=== PATIENT | male | born 1960 | race Caucasian/White ===

== ENCOUNTER 2019-05-17 16:00 | Outpatient (RCR) | payer OTHER, SELFPAY ==
[2019-04-26 15:25] VITALS: BP_SYST 155
--- NOTE | 2019-04-26 16:20 | PTOPEVAL ---
PHYSICAL THERAPY EVALUATION AND PLAN OF CARE 04-26-2019 The PT evaluation was completed for the diagnosis of R shoulder tendonitis. The plan of care is scheduled for 2x/week for 3 weeks. Thank you for referring this patient to [facility]. Please review, sign, date and return this plan of care PHIL. I agree with and certify that the following plan of care is medically necessary. Referring Physician Date Attending Provider: Charles Bear MD *PT Outpatient Evaluation Start: 04/26/19 15:29 Document 04/26/19 15:25 SEBASTIAN (Rec: 04/26/19 16:19 SEBASTIAN [id number]) Outpatient Past Medical History Neurological History Hx Neurological Disorders No Significant History Cardiovascular History Hx Hypertension Yes: med control Respiratory History Hx Respiratory Disorders No Significant History Gastrointestinal History Hx Gastrointestinal Disorders No Significant History Genitourinary History Hx Genitourinary Disorders No Significant History Musculoskeletal History Hx Back Pain Yes: spinal stenosis of lumbar spine Hx Degenerative Disk Disease Yes: neck& L sh pain-pain dr- injections, eased now Hx Orthopedic Surgery Yes: R knee arthroscopy/L knee pain Hx Other Musculoskeletal Disorders Yes: overall aches/pains;neck pain with L arm pain Hematological History Hx Hematological Disorders No Significant History Endocrine History Hx Diabetes Yes: med control Hx Thyroidectomy Yes: no meds HEENT History Hx HEENT Disorders No Significant History Evaluation Information Problem Diagnosis R shoulder tendonitis Onset Feb 23, 2019 Subjective Information slipped and fell on ice, Query Text:As Reported By Patient/ forward and landed, rolling Family onto R scapula; is doing much better now; have been moving arm and doing some exercises in the shower; Diagnostic Tests X-Rays For This Problem Yes: no fracture Other Tests For This Problem Yes: CT scan-per pt some bone spurs ; Previous Treatments Previous Treatments For This Problem no PT for shoulder Prior Level of Function Activity Level (Last 3 Months) 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
--- NOTE | 2019-05-17 16:43 | PTOPEVAL ---
PHYSICAL THERAPY DISCHARGE 05-17-2019 Mr. Mustafa has received 5 Physical Therapy sessions, from April 26 to today, for the diagnosis of R shoulder tendonitis. Compared to the initial evaluation: pain rating is about the same; R shoulder strength and AROM have increased; reported sleeping tolerance has improved; activity tolerance has increased with work tasks and playing pool. He has not tried golfing yet. His treatment included stretching and strengthening of R shoulder, modalities for pain control--manual therapy, ice, kinesiotape and education for home exercises and posture. The goals were partially achieved. Basim is to continue with his home exercises and gradual increase in strengthening, monitoring his pain. Thank you for referring Mr. Mustafa to [facility]. Please review, sign, date and return this plan of care PHIL. I agree with and certify that the following plan of care is medically necessary. Referring Physician Date Attending Provider: Charles Bear MD Document 05/17/19 16:01 SEBASTIAN (Rec: 05/17/19 16:29 SEBASTIAN [id number]) Subjective Information Basim reports: most pain in Query Text:As Reported By Patient/ the evening and with sleeping; Family is doing more and using arm more; is doing his home exercises and agrees to discharge from PT at this time . Pain Assessment Timing of Pain Assessment Timing of Pain Assessment Assessment Pain Scale Pain Scale Used Numeric (1 - 10) Self Report Pain Assessment Right Shoulder(s) Reported Pain Level 0 Pain Description Aching Pain Radiation Neck Pain Frequency Acute Other Pain Description stiff and ache in posterior shoulder and neck Current Pain Intensity 0 Lowest Pain Intensity 0 Greatest Pain Intensity 4 Pain Level Goal 0 Pain Aggravating Factors Exercise/Activity Other Pain Aggravating Factors reports awaken 3-4 x/night w/ rolling onto shoulder;reaching back&overhead Pain Relief Interventions Used By Heat,Ice Patient Other Alleviating Interventions taking ibuprofen 200mg in morning and end of day for shoulder pain; Additional Pain Comments have not played golf; played pool 3x- slight problem with shoulder elevation Pain Score Pain Score 0: Self Report Upper Extremity Range of Motion General Upper Extremity Range of Motion Gross Upper Extremity Range of Motion standing R shoulder AROM WNL, Comments flex, abduct and IR, with increased pain over deltoid with abduction and with IR- anterior
== END 2019-05-20 09:27 | disposition home or self-care (01) ==
LOC: ANHPT 16:00
PROVIDERS: PCP Internal Medicine; Visit Provider Orthopaedic Surgery
DX: M75.81 Other shoulder lesions, right shoulder (principal)
CPT/HCPCS: 97110; 97140; 97161

== ENCOUNTER 2019-09-07 07:01 | Outpatient (CLI) | payer OTHER, SELFPAY ==
[2019-09-07 07:49] LABS: Alanine Aminotransferase 24 U/L (4-50); Albumin Level 4.6 g/dL (3.5-5.1); Alkaline Phosphatase 83 U/L (38-126); Aspartate Amino Transferase 25 U/L (17-59); Bilirubin,Total 0.3 mg/dL (0.2-1.3); Blood Urea Nitrogen 20 mg/dL (9-20); Calcium 9.2 mg/dL (8.4-10.2); Carbon Dioxide 33 mmol/L (22-30); Chloride 95 mmol/L (98-107); Cholesterol 146 mg/dL (0-200); Estimated Glomerular Filt Rate > 60; Glucose 187 mg/dL (75-110); HDL Direct 49 mg/dL; Potassium 4.2 mmol/L (3.4-5.0); Sodium 137 mmol/L (137-145); Triglycerides 104 mg/dL (<150)
[2019-09-07 07:56] LABS: Basophils Absolute Auto 0.1 K/mm3 (0.0-0.1); Basophils Percent Auto 1.4 % (0.2-1.2); Eosinophils Absolute Auto 0.2 K/mm3 (0-0.3); Eosinophils Percent Auto 3.2 % (0-4.4); Hematocrit 43.8 % (42.0-52.0); Hemoglobin 14.9 g/dL (14.0-18.0); Immature Granulocyte Absolute 0.04 K/mm3 (0.00-0.031); Immature Granulocyte Percent A 0.7 % (0-0.5); Lymphocytes Absolute Auto 1.46 K/mm3 (0.9-3.2); Lymphocytes Percent Auto 26.4 % (18.3-44.2); Mean Corpuscular Hemoglobin 31.2 pg (26-34); Mean Corpuscular Volume 91.6 fl (80-100); Mean Platelet Volume 10.7 fl (7.4-10.4); Monocytes Absolute Auto 0.8 K/mm3 (0.1-0.6); Neutrophils Percent Auto 53.3 % (45.5-73.1); Platelet Count Result 253 k/mm3 (150-375); Red Blood Count 4.78 M/mm3 (4.6-6.20); White Blood Count 5.5 K/mm3 (4.5-10.0)
[2019-09-07 08:02] LABS: LDL Cholesterol Direct 83 mg/dL
[2019-09-07 08:54] LABS: Folic Acid 9.7 ng/mL (2.76->20)
== END 2019-09-07 07:02 | disposition home or self-care (01) ==
PROVIDERS: PCP Internal Medicine; Visit Provider Internal Medicine
DX: R53.83 Other fatigue (principal); E78.00 Pure hypercholesterolemia, unspecified; E11.65 Type 2 diabetes mellitus with hyperglycemia
CPT/HCPCS: 36415; 80053; 80061; 82607; 82746; 84443; 85025

== ENCOUNTER 2020-01-19 11:26 | Inpatient (IN) | payer OTHER, SELFPAY ==
[2020-01-19] VITALS (13 sets, daily range): BP systolic 146–198; BP diastolic 85–110; PULSE 54–96; RESP 16–22; TEMP 36.1–36.8; O2SAT 95–99; BMI 29.9
--- NOTE | ~2020-01-19 | XR_ITS ---
EXAMINATION: XR chest 2V DATE: 01/19/2020 11:51 INDICATION: Right chest pain. TECHNIQUE: Frontal and lateral views of the chest were obtained. COMPARISON: Chest 2 views 02/15/2013 FINDINGS: The chest demonstrates clear lungs without pneumonia, pleural effusion, or pneumothorax. Th e heart size is normal. IMPRESSION: 1. No acute cardiopulmonary disease. Reviewed, dictated and finalized at location A. ER ELECTRICIAN
--- NOTE | 2020-01-19 11:28 | ECG_ITS ---
Measurements Intervals [place] Rate: 93 P: 25 WV: 179 QRS: -24 QRSD: 109 T: 42 QT: 345 QTc: 430 Interpretive Statements SINUS RHYTHM POSSIBLE LEFT ATRIAL ENLARGEMENT LEFT VENTRICULAR HYPERTROPHY AND ST-T CHANGE POOR R WAVE PROGRESSION, ANTERIOR LEADS CANNOT RULE OUT SEPTAL INFARCT, AGE INDETERMINATE ST-T WAVE ABNORMALITY IN HIGH LATERAL LEADS- CONSIDER ISCHEMIA BASELINE WANDER- III, V1 ABNORMAL ECG Electronically Signed On 01-19-2020 17:59:39 SENIOR ENGINEERING TECHNICIAN by Radhames Perez D.O.
[2020-01-19 11:56] LABS: Basophils Absolute Auto 0.1 K/mm3 (0.0-0.1); Basophils Percent Auto 0.8 % (0.2-1.2); Eosinophils Absolute Auto 0.1 K/mm3 (0-0.3); Eosinophils Percent Auto 1.7 % (0-4.4); Hematocrit 43.1 % (42.0-52.0); Immature Granulocyte Absolute 0.02 K/mm3 (0.00-0.031); Immature Granulocyte Percent A 0.3 % (0-0.5); Lymphocytes Absolute Auto 1.55 K/mm3 (0.9-3.2); Lymphocytes Percent Auto 23.6 % (18.3-44.2); Mean Corpuscular HGB Conc 34.8 g/dl (32-36); Mean Corpuscular Hemoglobin 31.1 pg (26-34); Mean Corpuscular Volume 89.2 fl (80-100); Mean Platelet Volume 11.2 fl (7.4-10.4); Monocytes Absolute Auto 0.7 K/mm3 (0.1-0.6); Monocytes Percent Auto 9.9 % (2.6-8.5); Neutrophils Absolute Auto 4.2 K/mm3 (1.3-6.7); Neutrophils Percent Auto 63.7 % (45.5-73.1); Platelet Count Result 274 k/mm3 (150-375); Red Blood Count 4.83 M/mm3 (4.6-6.20); Red Cell Distribution Width 13.5 % (11.5-14.5); White Blood Count 6.6 K/mm3 (4.5-10.0)
[2020-01-19 12:06] LABS: INR 0.9; Prothrombin Time 12.3 Seconds (11.1-14.7)
[2020-01-19 12:07] LABS: Partial Thromboplastin Time 26.8 SECONDS (22.3-36.8)
[2020-01-19 12:08] LABS: Anion Gap 11 mmol/L (8-16); Blood Urea Nitrogen 23 mg/dL (9-20); Calcium 9.7 mg/dL (8.4-10.2); Carbon Dioxide 31 mmol/L (22-30); Chloride 95 mmol/L (98-107); Estimated CRCL calculation 66 ml/min; Estimated Glomerular Filt Rate > 60; Glucose 396 mg/dL (75-110); Potassium 3.9 mmol/L (3.4-5.0); Sodium 137 mmol/L (137-145)
[2020-01-19 12:28] LABS: Troponin I 0.101 ng/mL (0.000-0.034)
[2020-01-19] MEDS: ASPIRIN 81 MG CHEWABLE TABLET 324 MG PO (12:33)
[2020-01-19] MEDS: NITROGLYCERIN SL 0.4 MG TABLET SUBLINGUAL ×2 (12:33→18:36)
--- NOTE | 2020-01-19 12:34 | ED.CHESTPAIN ---
HPI - Chest Pain General Chief Complaint: Chest Pain Stated Complaint: CHEST PAIN Time Seen by Provider: 01/19/20 12:04 Source: patient Mode of arrival: ambulatory Limitations: no limitations History of Present Illness HPI narrative: Patient 59-year-old male complaining of chest pain midsternal, 7 out of 10, radiating to back, started this morning. Patient denies any shortness of breath, nausea or diaphoresis. Patient denies any abdominal pain. Patient denies fever or chills. Related Data Allergies Allergy/AdvReac Type Severity Reaction Status Date / Time No Known Allergies Allergy Verified 01/19/20 11:34 Review of Systems Review of Systems: All systems reviewed & are unremarkable except as noted in HPI and below Constitutional: Constitutional: Denies body ache(s), Denies chills, Denies excessive sweating, Denies fatigue, Denies fever(s), Denies headache(s), Denies lethargy, Denies malaise, Denies weakness and Denies weight loss Eyes: Eyes: Denies blurry vision, Denies change in vision and Denies loss of vision ENT: Denies dizziness, Denies ear discharge, Denies headache(s), Denies lip swelling, Denies epistaxis, Denies nasal congestion, Denies neck pain, Denies throat swelling and Denies tongue swelling Cardiovascular: Cardiovascular: Denies chest pain with activity, Denies diaphoresis, Denies rapid heart rate, Denies edema, Denies irregular heart rhythm, Denies lightheadedness, Denies palpitations, Denies dyspnea and Denies dyspnea on exertion Respiratory: Respiratory: Denies chest congestion, Denies cough, Denies hemoptysis, Denies dyspnea and Denies dyspnea on exertion Gastrointestinal: Gastrointestinal: Denies abdominal pain, Denies melena, Denies hematochezia, Denies diarrhea, Denies nausea, Denies vomiting and Denies hematemesis Musculoskeletal: Musculoskeletal: Denies abnormal gait, Denies deformity, Denies joint swelling, Denies limited range of motion, Denies neck pain and Denies numbness Neurologic: Denies Abnormal speech present, Denies abnormal gait, Denies confusion, Denies dizziness, Denies headache(s), Denies focal weakness, Denies loss of vision, Denies numbness, Denies Other visual disturbances, Denies Sensory deficit (Neuro) and Denies weakness Psychiatric: Psychiatric: Denies confusion, Denies depression, Denies auditory hallucinations, Denies homicidal ideation and Denies suicidal ideation Endocrine: Endocrine: Denies cold intolerance, Denies excessive sweating, Denies fatigue, Denies heat intolerance and Denies palpitations Hematologic/Lymphatic: Hematologic/Lymphatic: Denies easy bleeding and Denies easy bruising Allergic/Immunologic: Allergic/Immunologic: Denies lip swelling, Denies throat swelling and Denies tongue swelling PMFSH Past Medical History Medical History (Updated 01/19/20 @ 13:30 by Shiva Greene MD) Diabetes GERD (gastroesophageal reflux disease) Gout Hernia HTN (hypertension) Hypercholesterolemia Hypothyroidism Spinal stenosis Surgical History Surgical History H/O partial thyroidectomy History of knee surgery Azeb Family History Family History Sibling Diabetes mellitus Mother Heart disease Sibling Family history of thyroid disease Family history of diabetes mellitus in first degree relative Family history of epilepsy Hypertension Asthma Family history of seizure disorder Father Cerebrovascular accident Mother Acute myocardial infarction Patient's mother is Family history of arthritis Family history of Alzheimer's disease Family history of diabetes mellitus in first degree relative Family history of heart disease in male family member before age 55 Other Family history of alcoholism Family history of allergic disorder Family history of cardiovascular disease Social History Social History (Reviewed 10/07/19 @ 15:07 by Lucinda
[2020-01-19] MEDS: HEPARIN SODIUM 5,000 UNITS/ML VIAL 4000 UNITS IV PUSH ×2 (12:57→18:05)
[2020-01-19] MEDS: HEPARIN SOD/D5W 100 UNITS/ML 25,000 UNITS/250 ML BAG 8 UNITS IV CONT (12:58)
--- NOTE | 2020-01-19 14:59 | ADMGEN ---
This patient, Basim Mustafa, was admitted to IMU Room 200-01. Patient/family oriented to hospital policies and general routines including ID bracelet, bed and alarms, visiting hours, pain management, procedures, bathroom and other care routines, personal items, smoking policy, room service/diet, and visiting hours. Information on how to activate the Rapid Response Team has been discussed. Patient/Family are encouraged to report perceived risks to care and to ask questions if they do not understand what they are told or what they should do.
[2020-01-19 17:15] LABS: Glucose Point of Care 212 (65-105)
[2020-01-19] MEDS: ATORVASTATIN 40 MG TABLET PO (17:53)
[2020-01-19 17:56] LABS: Cholesterol 173 mg/dL (0-200); HDL Direct 46 mg/dL; Triglycerides 221 mg/dL (<150)
[2020-01-19 17:59] LABS: Partial Thromboplastin Time 53.7 SECONDS (22.3-36.8)
[2020-01-19 18:07] LABS: LDL Cholesterol Direct 100 mg/dL
--- NOTE | 2020-01-19 18:28 | ECG_ITS ---
Measurements Intervals [place] Rate: 88 P: 34 ID: 180 QRS: -30 QRSD: 106 T: 14 QT: 359 QTc: 435 Interpretive Statements SINUS RHYTHM LEFT VENTRICULAR HYPERTROPHY WITH ST-T CHANGE POOR R WAVE PROGRESSION, ANTERIOR LEADS BORDERLINE ST ABNORMALITY- HIGH LATERAL LEADS BORDERLINE ECG Electronically Signed On 01-20-2020 8:37:56 PHYSICIAN EXTENDER by Radhames Perez D.O.
--- NOTE | 2020-01-19 19:23 | PM.IMHP ---
H&P: HPI History of Present Illness Date/Time: 01/19/20 19:23 Chief complaint: nstemi Narrative: Basim Mustafa is a 59 year old male Complaining of chest pain midsternal chest pain. The patient stated that he has chronic shoulder pain. And that he thought he was just having his regular shoulder pain. The patient stated that he went on a golf tournament this past week and did have any chest pain he did fine. Today he woke up and he had some pain in his back and right shoulder. And that it radiated across his back to both shoulders and his left elbow was hurting and is hold right arm was hurting. The patient took some Pepcid and some Tylenol and it still did not help his pain even tried some Gas- X. The patient had eaten 2 exam which is and thought maybe clearance of acid reflux this morning. His tried to give him multiple over the counter medications as listed above without any relief. The patient stated he was in so much pain that he decided to come to the emergency room. He stated that his pain was 7/10. He had no nausea vomiting or diaphoresis. But he did start to feel anxious and short of breath. The patient had a stress test about 15 years ago and it was negative. Cardiology has been consulted and has already seen the patient. Patient troponin 0.101 at baseline. 3 hour troponin was 1.020. 6 hour troponin was 2.740. The patient will be NPO after midnight in preparation for cardiac catheterization. The patient is pain-free at this time. The patient is diabetic and typically takes oral medications. the patient was placed on heparin drip per protocol. He was also placed on Lipitor. Patient was given aspirin and nitro in the emergency room. EKG was read as sinus rhythm possible left atrial enlargement. Patient is admitted inpatient to [facility] IMU on the date of 01/19/2020 Review of Systems Review of Systems: All systems reviewed & are unremarkable except as noted in HPI and below Constitutional: Constitutional: Reports as per HPI and Reports no additional constitutional complaints Eyes: Eyes: Reports as per HPI and Reports no additional eye complaints ENT: Reports system reviewed and no additional complaints, except as documented and Reports Normal hearing present Cardiovascular: Cardiovascular: Reports no additional cardiovascular complaints Respiratory: Respiratory: Reports no additional respiratory complaints and Reports no additional respiratory complaints Gastrointestinal: Gastrointestinal: Reports as per HPI and Reports no additional gastrointestinal complaints Musculoskeletal: Musculoskeletal: Reports no additional musculoskeletal complaints Integumentary/Breasts: Skin/Breast: Reports system reviewed and no additional complaints, except as docu and Reports as per HPI Neurologic: Reports system reviewed and no additional complaints, except as documented, Reports as per HPI and Reports Normal hearing present Psychiatric: Psychiatric: Reports no additional psychiatric complaints and Reports as per HPI Endocrine: Endocrine: Reports no additional endocrine complaints Hematologic/Lymphatic: Hematologic/Lymphatic: Reports no additional hematologic/lymphatic complaints Allergic/Immunologic: Allergic/Immunologic: Reports no additional allergic/immunologic complaints [facility] Past Medical History Medical History (Updated 01/19/20 @ 21:37 by Valeri Christianson NP) Diabetes GERD (gastroesophageal reflux disease) Gout Hernia HTN (hypertension) Hypercholesterolemia Spinal stenosis Surgical History Surgical History (Updated 01/19/20 @ 19:33 by Valeri Christianson NP) H/O hernia repair H/O partial thyroidectomy History of knee surgery Azeb Family History Family History Sibling Diabetes mellitus Mother Heart disease Sibling Family history of thyroid disease Family history of diabetes mellitus in first degree relative Family history of epilepsy Hyp
[2020-01-19] MEDS: METOPROLOL TARTRATE 25 MG TABLET PO (20:39)
[2020-01-19] MEDS: INSULIN ASPART (*BKC) 100 UNITS/ML SUB-Q (20:39)
[2020-01-19 20:44] LABS: Glucose Point of Care 285 (65-105)
[2020-01-19 23:30] LABS: Glucose Point of Care 220 (65-105)
[2020-01-20] VITALS (28 sets, daily range): BP systolic 130–160; BP diastolic 70–91; PULSE 53–97; RESP 15–20; TEMP 36.3–36.9; O2SAT 94–99; BMI 29.2
[2020-01-20] MEDS: NITROGLYCERIN OINTMENT 1 INCH DOSE TRANSDERM ×5 (00:24→23:31)
[2020-01-20] MEDS: INSULIN ASPART (*BKC) 100 UNITS/ML SUB-Q (00:26)
[2020-01-20 00:48] LABS: Partial Thromboplastin Time 104.6 SECONDS (22.3-36.8)
[2020-01-20 07:05] LABS: Basophils Percent Auto 0.6 % (0.2-1.2); Eosinophils Absolute Auto 0.2 K/mm3 (0-0.3); Eosinophils Percent Auto 2.5 % (0-4.4); Hematocrit 42.3 % (42.0-52.0); Hemoglobin 14.4 g/dL (14.0-18.0); Immature Granulocyte Absolute 0.01 K/mm3 (0.00-0.031); Immature Granulocyte Percent A 0.1 % (0-0.5); Lymphocytes Absolute Auto 1.15 K/mm3 (0.9-3.2); Lymphocytes Percent Auto 16.2 % (18.3-44.2); Mean Corpuscular Hemoglobin 30.7 pg (26-34); Mean Corpuscular Volume 90.2 fl (80-100); Monocytes Absolute Auto 0.8 K/mm3 (0.1-0.6); Monocytes Percent Auto 11.4 % (2.6-8.5); Neutrophils Absolute Auto 4.9 K/mm3 (1.3-6.7); Neutrophils Percent Auto 69.2 % (45.5-73.1); Platelet Count Result 250 k/mm3 (150-375); Red Blood Count 4.69 M/mm3 (4.6-6.20); Red Cell Distribution Width 13.6 % (11.5-14.5); White Blood Count 7.1 K/mm3 (4.5-10.0)
[2020-01-20 07:14] LABS: Hemoglobin A1C 8.2 % (<5.7)
[2020-01-20 07:17] LABS: Magnesium 1.5 mg/dL (1.6-2.3)
[2020-01-20 07:33] LABS: Partial Thromboplastin Time 30.7 SECONDS (22.3-36.8)
[2020-01-20 08:38] LABS: Anion Gap 9 mmol/L (8-16); Blood Urea Nitrogen 23 mg/dL (9-20); Calcium 9.4 mg/dL (8.4-10.2); Carbon Dioxide 30 mmol/L (22-30); Chloride 98 mmol/L (98-107); Estimated CRCL calculation 83 ml/min; Estimated Glomerular Filt Rate > 60; Glucose 223 mg/dL (75-110); Potassium 4.1 mmol/L (3.4-5.0); Sodium 137 mmol/L (137-145)
[2020-01-20] MEDS: PANTOPRAZOLE 40 MG TABLET PO ×2 (09:02→18:12)
[2020-01-20] MEDS: allopurinoL 300 MG TABLET PO (09:02)
[2020-01-20] MEDS: METOPROLOL TARTRATE 25 MG TABLET PO ×2 (09:03→20:35)
--- NOTE | 2020-01-20 10:13 | PM.CNCAR ---
Assessment and Plan Additional Plan This is a 59-year-old man with no previous history of coronary disease risk factors include hypertension diabetes and dyslipidemia. He presents with an acute coronary syndrome with symptoms as detailed above. Plans are to proceed with diagnostic coronary angiography today and further recommendations of course will be forthcoming after that study is completed Basim Holt MD [facility] History of Present Illness History of Present Illness Consult date/time: 01/20/20 10:13 Consult reason: chest pain Reason For Visit: nstemi Narrative: This is a 59-year-old man I am seeing at the request of the hospitalist because of chest pain and evidence of acute coronary syndrome. He feels well this morning and does not have any ongoing complaints but he came to the emergency room yesterday because of some chest pain, right shoulder and arm pain that began the night before and then again yesterday morning. He states he was started to have episodes of pain in the region of his right shoulder which he thought was symptoms of arthritis of the shoulder he has had an orthopedic evaluation of his right shoulder showing some bone spurs and he had some physical therapy of that earlier this year. He states that the discomfort was a little bit different in quality but that is what he thought was. The symptoms were off and on on Monday night they recurred again on Monday morning but on Monday morning they started to be associated with some discomfort in the left arm and across the interscapular region of the upper part of his back. This was obviously not his shoulder symptoms and so he then became more concerned and came to the emergency department in the emergency department his electrocardiogram was found to show sinus rhythm with some minor nonspecific ST segment abnormalities. His troponin levels were minimally elevated but have subsequently root risen to 2.7. He was treated with aspirin beta blockers nitrates and anticoagulation and became asymptomatic. He is being seen in this setting in consultation. He has no previous history of documented coronary artery disease. Past medical history is remarkable for hypertension dyslipidemia and diabetes. 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 He is a gentleman who smokes cigars he has never smoked cigarettes he does not consume ethanol excessively or use any illicit substances. Denies any symptoms of palpitations orthopnea PND edema or syncope. Review of Systems Constitutional: Constitutional: Reports no additional constitutional complaints Eyes: Eyes: Reports no additional eye complaints ENT: Reports system reviewed and no additional complaints, except as documented Cardiovascular: Cardiovascular: Reports as per HPI Respiratory: Respiratory: Reports no additional respiratory complaints Gastrointestinal: Gastrointestinal: Reports no additional gastrointestinal complaints Musculoskeletal: Musculoskeletal: Reports as per HPI and Reports arthralgias Comments: Shoulder pain as detailed above Neurologic: Reports system reviewed and no additional complaints, except as documented Endocrine: Endocrine: Reports no additional endocrine complaints Hematologic/Lymphatic: Hematologic/Lymphatic: Reports no additional hematologic/lymphatic complaints Allergic/Immunologic: Allergic/Immunologic: Reports no additional allergic/immunologic complaints [facility] Past Medical History Medical History (Updated 01/19/20 @ 21:37 by Valeri Christianson NP) Diabetes GERD (gastroesophageal reflux disease) Gout Hernia HTN (hypertension) Hypercholesterolemia Spinal stenosis Surgical History Surgical History (Updated 01/19/20 @ 19:33 by Valeri Christianson NP) H/O hernia repair H/O partial thyroidectomy History of knee surgery Azeb Family History Family History Sibling Diab
[2020-01-20 11:56] LABS: Glucose Point of Care 193 (65-105)
--- NOTE | 2020-01-20 13:38 | WPDMODSED ---
Moderate Sedation Note-Pt Data Patient Data Diagnosis: non ST-elevation [place] Present Complaint: 59-year-old man admitted last night with symptoms of intermittent ischemic chest pain, nonspecific ECG changes and moderate troponin rise. No previous history of coronary disease. Allergies Allergy/AdvReac Type Severity Reaction Status Date / Time No Known Allergies Allergy Verified 01/19/20 11:34 Home Medications Medication Instructions Recorded Confirmed Type omeprazole 40 mg capsule,delayed 40 mg PO DAILY #30 cap 07/14/19 01/19/20 Rx release metformin 1,000 mg tablet 1,000 mg PO BID 90 Days #180 tablet 09/04/19 01/19/20 Rx allopurinol 300 mg tablet 300 mg PO DAILY #90 tablet 10/04/19 01/19/20 Rx fluticasone propionate 50 2 spray NASAL DAILY PRN #15.8 ml 11/07/19 01/19/20 Rx mcg/actuation nasal spray,suspension hydrochlorothiazide 25 mg tablet 25 mg PO DAILY #90 tablet 11/07/19 01/19/20 Rx quinapril 20 mg tablet 20 mg PO DAILY #90 tablet 11/07/19 01/19/20 Rx pravastatin 20 mg tablet 20 mg PO DAILY #90 tablet 11/08/19 01/19/20 Rx glimepiride 4 mg tablet 4 mg PO BID 90 Days #180 tablet 12/23/19 01/19/20 Rx linagliptin 5 mg tablet 5 mg PO QAM #30 tablet 01/06/20 01/19/20 Rx Current Medications: Active Medications Allopurinol (Allopurinol 300 Mg Tablet) 300 mg PO DAILY [facility] Last Admin: 01/20/20 09:02 Dose: 300 mg Documented by: Atorvastatin Calcium (Atorvastatin 40 Mg Tablet) 40 mg PO QPM [facility] Last Admin: 01/19/20 17:53 Dose: 40 mg Documented by: Dextrose (Dextrose 50% 25 Gm/50 Ml Syringe) 12.5 gm IV PUSH PRN PRN; Protocol PRN Reason: Hypoglycemia Fluticasone Propionate (Fluticasone Propionate 0.05% Na Spr 16 Gm Btl (*Bkc)) 2 spray NASAL DAILY PRN PRN Reason: nasal congestion Glucagon (Glucagon For Inj 1 Mg Vial) 1 mg IM PRN PRN; Protocol PRN Reason: Hypoglycemia Glucose (Glucose Oral Gel 15 Gm Of Glucse In 37.5 Gm Tube) 15 gm PO PRN PRN; Protocol PRN Reason: Hypoglycemia Heparin Sodium (Porcine) (Heparin Sodium 5,000 Units/Ml Vial) 4,000 units IV PUSH PRN PRN PRN Reason: aPTT less than 55 seconds Last Admin: 01/19/20 18:05 Dose: 4,000 units Documented by: Heparin Sodium (Porcine) (Heparin Sodium 5,000 Units/Ml Vial) 2,500 units IV PUSH PRN PRN PRN Reason: aPTT 55 - 70 seconds Hydralazine HCl (Hydralazine Hcl 20 Mg/Ml Vial) 10 mg IV PUSH Q8H PRN PRN Reason: Blood Pressure - High Heparin Sodium/Dextrose (Heparin Sodium/D5w 100 Units/Ml) 25,000 units in 250 mls @ 0 mls/hr IV CONT .Q0M DEDRICK; Protocol Last Titration: 01/20/20 06:21 Dose: 0 units/hr, 0 mls/hr Documented by: Dextrose (Dextrose 5% 1,000 Ml) 1,000 mls @ 100 mls/hr IVPB PRN PRN; Protocol PRN Reason: Hypoglycemia Insulin Aspart (Insulin Aspart (*Bkc) 100 Units/Ml) 2 - 5 units SUB-Q Q6H DEDRICK; Protocol Last Admin: 01/20/20 11:48 Dose: Not Given Documented by: Metoprolol Tartrate (Metoprolol Tartrate 25 Mg Tablet) 25 mg PO Q12HR [facility] Last Admin: 01/20/20 09:03 Dose: 25 mg Documented by: Nitroglycerin (Nitroglycerin Sl 0.4 Mg Tablet) 0.4 mg SUBLINGUAL Q5MIN PRN PRN Reason: Chest Pain Last Admin: 01/19/20 18:36 Dose: 0.4 mg Documented by: Nitroglycerin (Nitroglycerin Ointment 1 Inch Dose) 1 inch TRANSDERM Q6HR DEDRICK Last Admin: 01/20/20 12:05 Dose: 1 inch Documented by: Pantoprazole Sodium (Pantoprazole 40 Mg Tablet) 40 mg PO BID [facility] Last Admin: 01/20/20 09:02 Dose: 40 mg Documented by: Sedation/Anesthesia: No previous sedation/anesthesia problems (including family history). [facility] Past Medical History Medical History (Updated 01/19/20 @ 21:37 by Valeri Christianson NP) Diabetes GERD (gastroesophageal reflux disease) Gout Hernia HTN (hypertension) Hypercholesterolemia Spinal stenosis Surgical History Surgical History (Updated 01/19/20 @ 19:33 by Valeri Christianson NP) H/O hernia repair H/O partial thyroidectomy History of knee surgery Azeb Family History Family History (Reviewed 01/19/20 @ 19:33
--- NOTE | 2020-01-20 14:07 | PC.NURSE ---
Patient left floor with laborer cutting tool staff at 1400. Patient alert and oriented x3, no complaints of chest pain at that time.
--- NOTE | 2020-01-20 14:49 | WPDCARDPROC ---
Cardiac Cath Procedure Note Date of procedure:: 01/20/20 Performing physician:: Basim Holt MD Indication:: Unstable angina Brief clinical history:: 59-year-old man with no prior history of documented coronary disease enters the hospital unstable ischemic chest pain and evidence of ACS with elevated troponin Procedure Procedure performed:: left heart catheterization with left ventriculography and coronary angiography Sedation/Medication given:: fentanyl 50 mg Versed 2 mg case start time 2:17 p.m. case end time 30 9:00 p.m. sedation provided by Leyda Lewis RN, trained observer Access site:: right femoral artery Estimated blood loss:: 10-15 cc Procedure note:: patient was brought to the cardiac catheterization lab in the postabsorptive state where the right try draped in the usual fashion. Anesthesia was provided with 1% lidocaine infiltrated locally. Using the modified Seldinger technique a 5 Micronesian sheath was placed into artery. Following this I used a 5 Micronesian angled pigtail catheter to inject the left ventriculogram in the VALLE projection as well as to document left-sided hemodynamics. The pigtail catheter was then withdrawn and a 5 Micronesian FL4 catheter was used to engage inject the left coronary artery in multiple projections. After this a 5 Micronesian JR4 catheter was used to engage inject the right coronary artery. The cine angiograms were then reviewed and the case was terminated the patient was taken to the holding area for manual sheath removal. 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 Findings:: hemodynamics: Central aortic pressure was 1 22/62 left ventricle 120/2 end-diastolic of 10. There is no significant gradient upon pullback across the aortic valve. left ventricle is normal in size all segments contract appropriately the inferior segment is modestly hypodynamic but not akinetic the global ejection fraction was visually estimated to be 50-55% The left main coronary artery is short and nicely patent. The left anterior descending is a large caliber vessel somewhat ectatic in appearance with mild diffuse disease throughout its extent there are no high-grade lesions in the LAD. Circumflex is a moderate to large caliber vessel it is extraordinarily tortuous. There is a 90% complex stenosis in proximal aspect of the circumflex where the AV groove portion continues. The high-grade stenosis is in the bifurcation of the large OM branch and the AV groove. There is then a large very tortuous bifurcating OM branch with a more distal 95% stenosis as well. The posterior portion of the circumflex appears to provide collateral flow to the small occluded RCA the right coronary artery is small in caliber and appears to have been dominant to the posterior circulation it is 100% occluded in the 2nd portion. There is diffuse 70-80% stenosis in the proximal RCA before the occlusion a large acute marginal branch is patent and has a 90% stenosis Conclusion:: 1. severe 2 vessel coronary artery disease with what appears to be chronic total occlusion of the mid RCA with some collateral flow from the distal circumflex as well as sequential very high-grade lesions in the extraordinarily tortuous circumflex as described above. 2. Lad which is somewhat ectatic but without high-grade stenosis 3. mild inferior hypokinesia overall normal left ventricular ejection fraction of approximately 50-55% Basim Holt MD [facility]
--- NOTE | 2020-01-20 16:36 | PM.IMPN ---
Progress Note: A&P Assessment and Plan (1) Acute non-ST elevation myocardial infarction (NSTEMI): Code(s): I21.4 - Non-ST elevation (NSTEMI) myocardial infarction Status: Acute Assessment and Plan: Cardiology has seen the patient already. The patient be NPO after midnight. Patient most likely will have a cardiac catheterization tomorrow. He is not having any further discomfort at this time. He has been instructed to notify if he does any further discomfort. He is now on Lipitor and I held his pravastatin. He is on heparin drip. Last troponin 2.740. P.r.n. nitroglycerin. He is on metoprolol. 01/20/20 16:36 patient is 59-year-old male with history of diabetes hypertension he presented emergency department with a complaint chest pain radiating right shoulder and thought as he has arthritis in his right shoulder which was giving him the pain however he took rdxr-dnz-yjmkzuy medication without much relief and he felt this pain was different than his regular shoulder pain, patient presented emergency department for further evaluation he is found to have a non STEMI, patient seen by retention representative and plan is to take the patient to seed analysis laboratory assistant and further recommendation to follow, currently patient denies any chest pain shortness of breath palpitation fever or chills, will follow-up on cardiac catheterization and retention representative recommendation (2) Hypertension: Qualifiers: Hypertension type: unspecified Qualified Code(s): I10 - Essential (primary) hypertension Code(s): I10 - Essential (primary) hypertension Status: Acute Assessment and Plan: I am holding his quinapril for tonight. I will do some p.r.n. hydralazine. Who was placed on metoprolol and I am holding his quinapril. (3) Type 2 diabetes mellitus with hyperglycemia, without long-term current use of insulin: Code(s): E11.65 - Type 2 diabetes mellitus with hyperglycemia Status: Acute Assessment and Plan: Holding his diaper I would and metformin tonight. His last A1c was over 8. Will check another A1c and do sliding scale insulin. (4) Pure hypercholesterolemia, unspecified: Code(s): E78.00 - Pure hypercholesterolemia, unspecified Status: Acute Assessment and Plan: Patient is now on Lipitor holding pravastatin. (5) GERD (gastroesophageal reflux disease): Code(s): K21.9 - Gastro-esophageal reflux disease without esophagitis Status: Acute Assessment and Plan: Continue with omeprazole. Subjective Date/time seen: 01/20/20 16:36 patient is 59-year-old male with history of diabetes hypertension he presented emergency department with a complaint chest pain radiating right shoulder and thought as he has arthritis in his right shoulder which was giving him the pain however he took zewy-qvt-pdzotog medication without much relief and he felt this pain was different than his regular shoulder pain, patient presented emergency department for further evaluation he is found to have a non STEMI, patient seen by retention representative and plan is to take the patient to seed analysis laboratory assistant and further recommendation to follow, currently patient denies any chest pain shortness of breath palpitation fever or chills, will follow-up on cardiac catheterization and retention representative recommendation Review of Systems Review of Systems: All systems reviewed & are unremarkable except as noted in HPI and below Exam Narrative: Exam Narrative: Patient is comfortable, NAD HEENT: eyes are clear and none icteric LUNGS:CTA HEART: RR S1S2 ABD: BS+, Soft and nontender Lower extremities: no edema SKIN: nonjaundiced Neuro: grossly intact. Objective Data Vital Signs Vital Signs: Vital Signs - 24 hr 01/19/20 18:00 01/19/20 18:56 01/19/20 20:00 Temperature 96.9 F L Pulse Rate 83 96 81 Respiratory Rate 18 Blood Pressure 163/85 H Pulse Oximetry 96 01/19/20 20:39 01/19/20 22:00 01/19/20 23:46 Temper
--- NOTE | 2020-01-20 17:32 | PC.NURSE ---
Patient returned to floor with cardiac catheter lab staff. Report at bedside. Dressing to right groin dry and intact, no swelling/drainage/hematoma noted. Pedal pulse palpable. No complaints of chest pain or shortness of breath at this time. Will continue to monitor closely.
[2020-01-20 18:03] LABS: Glucose Point of Care 149 (65-105)
[2020-01-20] MEDS: SODIUM CHLORIDE 0.9% IV 1,000 ML 125 ML IV CONT (18:11)
[2020-01-20] MEDS: MAGNESIUM SULF 2 GM/WATER 50ML 2 GM/50 ML BAG IVPB (18:11)
[2020-01-20] MEDS: ATORVASTATIN 40 MG TABLET PO (18:12)
[2020-01-20 20:31] LABS: Glucose Point of Care 273 (65-105)
--- NOTE | 2020-01-20 20:32 | PC.NURSE ---
Report called to IBRAHIMA Ramirez at [facility]. Patient being transferred to room 1263-A.
[2020-01-21 02:00] VITALS: PULSE 62
--- NOTE | 2020-03-11 08:25 | PM.TDS ---
Transfer Discharge Sum: Prov Provider Date of admission: 01/19/20 13:33 Primary care physician: Brown Gutierrez DO Admitting clinician: Christiana Olivier MD Consults: 01/19/20 13:34 Consult to Physician Routine Comment: Consulting Provider: Danish Mooney Reason for consultation: NSTEMI Has provider been notified: Yes DS: Admitting Diagnosis Admitting Diagnosis Admitting Diagnosis: Non ST-elevation RI DS: Discharge Diagnosis Discharge Diagnosis (1) Non-ST elevation RI (NSTEMI): Code(s): I21.4 - Non-ST elevation (NSTEMI) myocardial infarction Status: Acute Transfer Discharge Sum: Med Medications Active and Home Medications: Home Medications allopurinol 300 mg tablet 300 mg PO DAILY #90 tablet 10/04/19 [Rx Confirmed 02/10/20] fluticasone propionate 50 mcg/actuation nasal spray,suspension 2 spray NASAL DAILY PRN #15.8 ml 11/07/19 [Rx Confirmed 02/10/20] quinapril 20 mg tablet 20 mg PO DAILY #90 tablet 11/07/19 [Rx Confirmed 02/10/20] glimepiride 4 mg tablet 4 mg PO BID 90 Days #180 tablet 12/23/19 [Rx Confirmed 02/10/20] omeprazole 40 mg capsule,delayed release 40 mg PO DAILY #30 cap 01/22/20 [Rx Confirmed 02/10/20] aspirin 81 mg tablet,delayed release 81 mg PO DAILY 01/27/20 [History Confirmed 02/10/20] metoprolol tartrate 25 mg tablet 25 mg PO DAILY 01/27/20 [History Confirmed 02/10/20] ticagrelor 90 mg tablet 90 mg PO Q12H 01/27/20 [History Confirmed 02/10/20] linagliptin 5 mg tablet 5 mg PO QAM #0 tablet 02/10/20 [Rx Confirmed 02/10/20] rosuvastatin 5 mg tablet 5 mg PO QPM tablet 02/10/20 [History Confirmed 02/10/20] metformin 1,000 mg tablet 1,000 mg PO BID 90 Days #180 tablet 02/28/20 [Rx] Transfer Discharge Sum: Hosp Hospital Course Hospital course: Basim Mustafa is a 59 year old male without previous history of coronary disease who presented to the hospital with about 2 day history of intermittent chest pain and shoulder pain which was initially felt to be arthritic in nature but then was more concerning. His ECG in the emergency department demonstrated some nonspecific ST segment changes but no acute current of injury. Following admission troponin level esdras to 2.7 leading to the recommendation to perform a coronary angiogram. His angiogram demonstrated severe 2 vessel coronary artery disease with what appeared to be chronic total occlusion of the mid RCA which received collateral filling from his circumflex. He had high-grade stenosis in the circumflex with extreme tortuosity of that vessel. There was no significant LAD disease. PCI of the circumflex versus CABG of the circumflex and occluded right coronary artery were felt to be reasonable. 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 The plan will be to consider higher risk PCI verses 2 vessel CABG. Time Spent with Patient Time attestation: Total time spent providing and/or coordinating transfer services: Exam Const: General: comfortable and no acute distress HENMT: Mouth: Yes moist mucous membranes Eyes: Sclera: sclerae normal Pupils: Equal, round and reactive pupils present Neck: Neck: supple and no JVD Resp: Effort & Inspection: normal respiratory effort Auscultation: clear to auscultation bilaterally Cardio: Rate: regular rate Rhythm: regular rhythm Other: No gallop no murmur no rub GI: GI Palp: Yes Soft to palpation Auscultation: normal bowel sounds Skin: General skin exam: normal color Neuro: Cognition (Neuro): normal cognition Extrem: General: normal to inspection DS: Data Procedures/Treatments: Diagnostic left heart catheterization
== END 2020-01-21 03:00 | disposition short-term general hospital (02) | DRG 282 ==
LOC: ANHED 13:30 → ANHIMU 13:55
PROVIDERS: Emergency Medicine; Family Medicine; Internal Medicine Cardiovascular Disease; Nurse Practitioner; Admitting Provider Family Medicine; Emergency Provider Emergency Medicine; PCP Internal Medicine; Visit Provider Specialist
PROC: 4A023N7 Measurement of Cardiac Sampling and Pressure, Left Heart, Percutaneous Approach (ICD-10-PCS; CPT 93452; principal; 2020-01-20 11:00)
DX: I21.4 Non-ST elevation (NSTEMI) myocardial infarction (principal); I25.10 Atherosclerotic heart disease of native coronary artery without angina pectoris; E78.00 Pure hypercholesterolemia, unspecified; I10 Essential (primary) hypertension; K21.9 Gastro-esophageal reflux disease without esophagitis; E11.65 Type 2 diabetes mellitus with hyperglycemia; M10.9 Gout, unspecified; E03.9 Hypothyroidism, unspecified; F17.290 Nicotine dependence, other tobacco product, uncomplicated; Z28.21 Immunization not carried out because of patient refusal; Z79.84 Long term (current) use of oral hypoglycemic drugs; Z79.899 Other long term (current) drug therapy
CPT/HCPCS: 36415; 71046; 80048; 80061; 82728; 83036; 83735; 84443; 84484; 85025; 85610; 85730; 93005; 93458; 96365; 99291; A9270; C1887; C1894; J0583; J1644; J1815; J2250; J3010; J3475; J7030

== ENCOUNTER 2020-06-29 16:30 | Outpatient (RCR) | payer OTHER, SELFPAY ==
[2020-03-31 11:45] VITALS: PULSE 68
[2020-04-06 18:00] LABS: Glucose Point of Care 107 (65-105)
--- NOTE | 2020-05-20 14:01 | PCCPR ---
Absent today, not feeling well after second covid vaccine.
== END 2020-06-29 19:30 | disposition home or self-care (01) ==
LOC: ANHCPREHAB 16:30
PROVIDERS: PCP Internal Medicine; Visit Provider Specialist
DX: Z95.5 Presence of coronary angioplasty implant and graft (principal); I25.2 Old myocardial infarction
CPT/HCPCS: 93798

== ENCOUNTER → 2020-09-05 07:58 | Outpatient (CLI) | payer OTHER, SELFPAY ==
--- NOTE | ~2020-09-05 | XR_ITS ---
XR lumbar spine 2-3V 09/05/2020 08:41 Indication: Low back pain Procedure: 3 views lumbar spine Comparison: 09/27/2016 Findings: There is disc narrowing at L1-2, L2-4-5 and L5-S1. There is moderate lower lumbar facet hyp ertrophy. No acute fracture, subluxation or dislocation. Pedicles intact. Sacral foramen are symmetri c. No evidence for spondylolisthesis. Impression: 1: Moderate lumbar spondylosis, most severe at L5-S1 with mild progression of findings since prior st udy. Reviewed, dictated and finalized at location A. Impression: 1: Moderate lumbar spondylosis, most severe at L5-S1 with mild progression of f indings since prior study.
--- NOTE | ~2020-09-05 | XR_ITS ---
XR thoracic spine 2V 09/05/2020 08:41 Indication: Back pain Procedure: 3 views of the thoracic spine Comparison: 02/19/2007 Findings: There is diffuse idiopathic skeletal hyperostosis (DISH) of the thoracic spine. No acute fr acture, subluxation or dislocation. No paraspinal soft tissue abnormality. Surrounding osseous struct ures within normal limits. There is moderate spondylosis of the visualized cervical spine. Impression: 1: Diffuse idiopathic skeletal hyperostosis (DISH) of the thoracic spine. Reviewed, dictated and finalized at location A. Impression: 1: Diffuse idiopathic skeletal hyperostosis (DISH) of the thoracic spine.
== END ==
PROVIDERS: PCP Internal Medicine; Visit Provider Internal Medicine
DX: M48.14 Ankylosing hyperostosis [Forestier], thoracic region (principal); M47.896 Other spondylosis, lumbar region; M47.897 Other spondylosis, lumbosacral region
CPT/HCPCS: 72070; 72100

== ENCOUNTER → 2020-12-14 11:36 | Outpatient (CLI) | payer OTHER, SELFPAY ==
--- NOTE | ~2020-12-14 | XR_ITS ---
EXAMINATION: XR sacroiliac joints min 3V EXAM DATE: 12/14/2020 12:03 INDICATION: M54.50 - Low back pain, unspecified. Left-sided sacroiliac joint pain for 2 weeks, states after moving boxes. TECHNIQUE: Sacroiliac joint frontal, bilateral oblique projections. There is no prior study for com parison. FINDINGS: There is mild bilateral sacroiliac osteoarthritis. There is no alkalosis. The sacral arcuat e lines are intact, no evidence of acute fracture. Calcifications in the pelvis are believed to be ph leboliths. Moderate lower lumbar spondylosis. IMPRESSION: 1. Mild sacroiliac osteoarthritis. 2. Moderate lower lumbar spondylosis. Reviewed, dictated and finalized at location A.
== END ==
PROVIDERS: PCP Internal Medicine; Visit Provider Physician Assistant
DX: M54.50 Low back pain, unspecified (principal); M47.898 Other spondylosis, sacral and sacrococcygeal region; M47.816 Spondylosis without myelopathy or radiculopathy, lumbar region
CPT/HCPCS: 72202

== ENCOUNTER 2020-12-31 14:36 | Inpatient (IN) | payer OTHER, SELFPAY ==
[2020-12-31] VITALS (20 sets, daily range): BP systolic 152–204; BP diastolic 83–103; PULSE 69–90; RESP 14–25; TEMP 36.3–36.6; O2SAT 99–100; BMI 28.0
--- NOTE | 2020-12-31 15:09 | ECG_ITS ---
Measurements Intervals [place] Rate: 68 P: 23 OK: 176 QRS: -42 QRSD: 116 T: 8 QT: 394 QTc: 420 Interpretive Statements SINUS RHYTHM LEFT AXIS DEVIATION INTRAVENTRICULAR CONDUCTION DELAY VOLTAGE CRITERIA FOR LVH POOR R WAVE PROGRESSION, ANTERIOR LEADS BORDERLINE ECG Electronically Signed On 12-31-2020 15:32:36 CDT by Radhames Perez D.O.
[2020-12-31] MEDS: hydrALAZINE HCL 20 MG/ML VIAL 10 MG IV PUSH ×3 (15:38→22:46)
--- NOTE | 2020-12-31 16:19 | ED.GENADULT ---
HPI - General Adult General Chief complaint: Recheck/Abnormal Lab/Rx Stated complaint: High Blood Pressure Time Seen by Provider: 12/31/20 14:48 History of Present Illness HPI narrative: Patient is a 60-year-old male who presents to the ER with a note from his logging contractor stating that he has hypertensive emergency. He has had some decrease in his vision over the last week. He went to the logging contractor today and he has edema of the optic nerve bilaterally with a blood pressure is running in the 180s to 200s here. No chest pain or chest pressure. No slurred speech or numbness or tingling. He has been taking his quinapril as well as his metoprolol. No oxon-evp-tblpbud decongestants. No prednisone. Denies fevers or chills or sweats. Patient has known diabetic retinopathy and also has hypertensive retinopathy. He has some other abnormalities in the back that are being managed by the logging contractor that you are require intervention here. Related Data Home Medications Medication Instructions Recorded Confirmed aspirin 81 mg tablet,delayed 81 mg PO DAILY 01/27/20 12/19/20 release ticagrelor 90 mg tablet 90 mg PO Q12H 01/27/20 10/21/20 rosuvastatin 5 mg tablet 5 mg PO QPM tablet 02/10/20 12/19/20 nitroglycerin 0.3 mg SUBLINGUAL Q5M PRN 03/31/20 12/19/20 metoprolol succinate 50 mg PO 04/13/20 12/19/20 Allergies Allergy/AdvReac Type Severity Reaction Status Date / Time No Known Allergies Allergy Verified 12/31/20 14:45 Review of Systems Review of Systems: All systems reviewed & are unremarkable except as noted in HPI and below Constitutional: Constitutional: Denies chills, Denies fever(s) and Denies weakness Eyes: Eyes: Reports change in vision and Denies photophobia ENT: Denies epistaxis and Denies nasal congestion Cardiovascular: Cardiovascular: Denies chest pain, Denies rapid heart rate and Denies radiating jaw, neck or arm pain Respiratory: Respiratory: Denies cough, Denies dyspnea and Denies wheezing Gastrointestinal: Gastrointestinal: Denies nausea and Denies vomiting Neurologic: Denies headache(s), Denies focal weakness and Denies numbness PMFSH Past Medical History Medical History Acute non-ST elevation myocardial infarction (NSTEMI) GERD (gastroesophageal reflux disease) Gout Hernia HTN (hypertension) Hypercholesterolemia Spinal stenosis Type 2 diabetes mellitus with hyperglycemia, without long-term current use of insulin Surgical History Surgical History H/O hernia repair H/O partial thyroidectomy History of knee surgery Azeb S/P coronary artery stent placement Family History Family History Sibling Diabetes mellitus Mother Heart disease Sibling Family history of seizure disorder Family history of diabetes mellitus in first degree relative Family history of epilepsy Family history of thyroid disease Hypertension Asthma Father Cerebrovascular accident Diabetes mellitus Mother Family history of heart disease in male family member before age 55 Family history of arthritis Acute myocardial infarction Family history of diabetes mellitus in first degree relative Patient's mother is Family history of Alzheimer's disease Diabetes mellitus Family history of cardiovascular disease Other Family history of alcoholism Family history of allergic disorder Social History Social History Social History: the patient is and lives with his . He desires to have her is a durable power litigation attorney. He is a full code. The patient has 2 children. 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 the patient occasionally smokes a cigar. Occasionally drinks. He likes to set on his deck whe
[2020-12-31 16:34] LABS: Basophils Absolute Auto 0.1 K/mm3 (0.0-0.1); Eosinophils Absolute Auto 0.1 K/mm3 (0-0.3); Eosinophils Percent Auto 1.9 % (0-4.4); Hematocrit 41.2 % (42.0-52.0); Hemoglobin 14.8 g/dL (14.0-18.0); Immature Granulocyte Absolute 0.01 K/mm3 (0.00-0.031); Immature Granulocyte Percent A 0.1 % (0-0.5); Lymphocytes Absolute Auto 1.31 K/mm3 (0.9-3.2); Mean Corpuscular HGB Conc 35.9 g/dl (32-36); Mean Corpuscular Hemoglobin 34.9 pg (26-34); Mean Corpuscular Volume 97.2 fl (80-100); Mean Platelet Volume 10.7 fl (7.4-10.4); Monocytes Absolute Auto 0.8 K/mm3 (0.1-0.6); Monocytes Percent Auto 10.3 % (2.6-8.5); Neutrophils Percent Auto 68.7 % (45.5-73.1); Platelet Count Result 226 k/mm3 (150-375); Red Blood Count 4.24 M/mm3 (4.6-6.20); Red Cell Distribution Width 13.2 % (11.5-14.5); White Blood Count 7.3 K/mm3 (4.5-10.0)
[2020-12-31 16:51] LABS: Anion Gap 9 mmol/L (8-16); Blood Urea Nitrogen 25 mg/dL (9-20); Calcium 9.1 mg/dL (8.4-10.2); Carbon Dioxide 31 mmol/L (22-30); Chloride 97 mmol/L (98-107); Estimated CRCL calculation 64 ml/min; Estimated Glomerular Filt Rate > 60; Glucose 87 mg/dL (65-110); Potassium 4.2 mmol/L (3.4-5.0); Sodium 137 mmol/L (137-145)
--- NOTE | 2020-12-31 21:36 | PM.IMHP ---
H&P: HPI History of Present Illness Date/Time: 12/31/20 21:36Lorna is a 60-year-old male patient has a history of hypertension and coronary artery disease. The patient stated that he went to his retinal specialist today and was told that he has hypertensive emergency as his blood pressure was elevated and he was having some ophthalmology problems. He had some edema to his optic nerve bilaterally with the blood pressure running in the 200s systolic. The patient denies any chest pain and has a history of having a coronary stent approximately 11 months ago. The patient has known diabetic retinopathy and has hypertensive retinopathy as well. Patient stated he has been taking all of his medication as prescribed. The patient was given hydralazine x2. His initial blood pressure was 204/96 and is now 152/84. The patient is being admitted to inpatient status on the date of service of 12/31/2020 Chief Complaint: Hypertensive urgency Review of Systems Review of Systems: All systems reviewed & are unremarkable except as noted in HPI and below Constitutional: Constitutional: Reports as per HPI and Reports no additional constitutional complaints Eyes: Eyes: Reports as per HPI and Reports no additional eye complaints ENT: Reports system reviewed and no additional complaints, except as documented and Reports Normal hearing present Cardiovascular: Cardiovascular: Reports no additional cardiovascular complaints Respiratory: Respiratory: Reports no additional respiratory complaints and Reports no additional respiratory complaints Gastrointestinal: Gastrointestinal: Reports as per HPI and Reports no additional gastrointestinal complaints Musculoskeletal: Musculoskeletal: Reports no additional musculoskeletal complaints Integumentary/Breasts: Skin/Breast: Reports system reviewed and no additional complaints, except as docu and Reports as per HPI Neurologic: Reports system reviewed and no additional complaints, except as documented, Reports as per HPI and Reports Normal hearing present Psychiatric: Psychiatric: Reports no additional psychiatric complaints and Reports as per HPI Endocrine: Endocrine: Reports no additional endocrine complaints Hematologic/Lymphatic: Hematologic/Lymphatic: Reports no additional hematologic/lymphatic complaints Allergic/Immunologic: Allergic/Immunologic: Reports no additional allergic/immunologic complaints [facility] Past Medical History Medical History (Updated 12/31/20 @ 21:41 by Valeri Christianson NP) Acute non-ST elevation myocardial infarction (NSTEMI) Coronary artery disease Dietary counseling and surveillance Dorsalgia GERD (gastroesophageal reflux disease) Gout Hernia HTN (hypertension) Hypercalcemia Hypercholesterolemia Hyperkalemia Impingement syndrome of right shoulder Low back pain Non-ST elevation ID (NSTEMI) Pure hypercholesterolemia, unspecified Spinal stenosis Type 2 diabetes mellitus with hyperglycemia, without long-term current use of insulin Surgical History Surgical History (Updated 12/31/20 @ 21:41 by Valeri Christianson NP) H/O hernia repair H/O partial thyroidectomy History of knee surgery Azeb S/P coronary artery stent placement 1 stent to the mid RCA Family History Family History Sibling Diabetes mellitus Mother Heart disease Sibling Family history of seizure disorder Family history of diabetes mellitus in first degree relative Family history of epilepsy Family history of thyroid disease Hypertension Asthma Father Cerebrovascular accident Diabetes mellitus Mother Family history of heart disease in male family member before age 55 Family history of arthritis Acute myocardial infarction Family history of diabetes mellitus in first degree relative Patient's mother is Family history of Alzheimer's disease Diabetes mellitus Family history of cardiovascular disease Other Family history of al
--- NOTE | 2020-12-31 21:57 | ADMGEN ---
This patient, Basim Mustafa, was admitted to IMU Room 203-01 on 12/31/20 at 2143. Patient/family oriented to hospital policies and general routines including ID bracelet, bed and alarms, visiting hours, pain management, procedures, bathroom and other care routines, personal items, smoking policy, room service/diet, and visiting hours. Information on how to activate the Rapid Response Team has been discussed. Patient/Family are encouraged to report perceived risks to care and to ask questions if they do not understand what they are told or what they should do.
[2020-12-31] MEDS: HYDROcodone/acetaminophen (*CRX) 5-325 MG TABLET 1 TAB PO (22:46)
[2021-01-01] VITALS (14 sets, daily range): BP systolic 135–172; BP diastolic 81–95; PULSE 68–82; RESP 14–16; TEMP 36.1–36.6; O2SAT 96–100
[2021-01-01] MEDS: TICAGRELOR 90 MG TABLET PO ×2 (01:27→09:28)
[2021-01-01] MEDS: KETOROLAC 0.5% OP SOLN 5 ML BOTTLE 1 DROP LEFT EYE ×2 (01:27→09:29)
[2021-01-01 04:57] LABS: Basophils Absolute Auto 0.1 K/mm3 (0.0-0.1); Eosinophils Absolute Auto 0.2 K/mm3 (0-0.3); Eosinophils Percent Auto 3.4 % (0-4.4); Hematocrit 43.5 % (42.0-52.0); Hemoglobin 14.8 g/dL (14.0-18.0); Immature Granulocyte Absolute 0.01 K/mm3 (0.00-0.031); Immature Granulocyte Percent A 0.2 % (0-0.5); Lymphocytes Absolute Auto 1.32 K/mm3 (0.9-3.2); Lymphocytes Percent Auto 21.3 % (18.3-44.2); Mean Corpuscular Hemoglobin 32.7 pg (26-34); Mean Platelet Volume 10.3 fl (7.4-10.4); Monocytes Absolute Auto 0.7 K/mm3 (0.1-0.6); Monocytes Percent Auto 11.6 % (2.6-8.5); Neutrophils Absolute Auto 3.9 K/mm3 (1.3-6.7); Neutrophils Percent Auto 62.5 % (45.5-73.1); Platelet Count Result 239 k/mm3 (150-375); Red Blood Count 4.53 M/mm3 (4.6-6.20); Red Cell Distribution Width 13.2 % (11.5-14.5); White Blood Count 6.2 K/mm3 (4.5-10.0)
[2021-01-01 05:22] LABS: Alanine Aminotransferase 31 U/L (4-50); Albumin Level 4.4 g/dL (3.5-5.1); Alkaline Phosphatase 45 U/L (38-126); Anion Gap 11 mmol/L (8-16); Aspartate Amino Transferase 28 U/L (17-59); Bilirubin,Total 0.5 mg/dL (0.2-1.3); Blood Urea Nitrogen 20 mg/dL (9-20); Calcium 9.5 mg/dL (8.4-10.2); Carbon Dioxide 27 mmol/L (22-30); Chloride 98 mmol/L (98-107); Estimated CRCL calculation 73 ml/min; Estimated Glomerular Filt Rate > 60; Glucose 118 mg/dL (65-110); Magnesium 1.2 mg/dL (1.6-2.3); Sodium 136 mmol/L (137-145)
[2021-01-01 08:23] LABS: Glucose Point of Care 133 mg/dl (65-105)
[2021-01-01 09:24] LABS: Hemoglobin A1C 6.2 % (<5.7)
[2021-01-01] MEDS: GLIMEPIRIDE 2 MG TABLET 4 MG PO (09:27)
[2021-01-01] MEDS: metFORMIN HCL 500 MG TABLET 1000 MG PO (09:27)
[2021-01-01] MEDS: ASPIRIN 81 MG ENTERIC TABLET PO (09:28)
[2021-01-01] MEDS: ROSUVASTATIN 5 MG TABLET PO (09:28)
[2021-01-01] MEDS: PANTOPRAZOLE 40 MG TABLET PO (09:28)
[2021-01-01] MEDS: METOPROLOL SUCCINATE EXT REL 50 MG TABCR PO (09:28)
[2021-01-01] MEDS: allopurinoL 300 MG TABLET PO (09:28)
[2021-01-01] MEDS: NAPROXEN SODIUM 220 MG TABLET PO (09:28)
[2021-01-01] MEDS: MAGNESIUM SULFATE 3GM/D5W100ML 3 GM/100 ML BAG IVPB (09:29)
[2021-01-01] MEDS: FLUTICASONE PROPIONATE 0.05% NA SPR 16 GM BTL (*BKC) 2 SPRAY NASAL (09:29)
[2021-01-01 12:01] LABS: Glucose Point of Care 190 mg/dl (65-105)
--- NOTE | 2021-01-01 12:56 | PC.NURSE ---
On 01/01/21, the student, [Ericka Mahajan], provided care and completed [facility] documentation on this patient. I have reviewed the student's documentation and agree with the findings.
[2021-01-01 16:11] LABS: Magnesium 1.9 mg/dL (1.6-2.3)
--- NOTE | 2021-01-01 16:34 | PM.DS ---
DS: Admitting Diagnosis Discharge Date 01/01/2021 Admitting Diagnosis Hypertensive urgency DS: Discharge Diagnosis Discharge Diagnosis (1) Hypertensive urgency: Code(s): I16.0 - Hypertensive urgency Status: Acute Assessment and Plan: He was referred to the ED by his emergency specialist for hypertensive urgency. Blood pressure on presentation was 204/96. He did have visual changes including flashes/floaters, but this is been an ongoing issue for which he has been established with a retina specialist and not a new finding. No other evidence of end-organ dysfunction. He was symptomatic with headache. On presentation he received IV hydralazine and his home LAVERN inhibitor dose was increased from 20 mg to 40 mg. His blood pressure initially improved more than desired to 135/81, therefore his LAVERN-inhibitor was held. Blood pressure was stabilized in the 160s-170s systolic, which is goal at this time with overall 20% reduction in the systolic blood pressure. He will continue with his home regimen of quinapril 20 mg daily and metoprolol succinate 50 mg daily. He is instructed to monitor his blood pressure twice daily for the next week and follow-up with his PCP in 1 week for further BP monitoring and management. He was given parameters for which he should call his PCP and worrisome signs and symptoms for which to return to the ED (2) Coronary artery disease: Code(s): I25.10 - Atherosclerotic heart disease of [place] coronary artery without angina pectoris Status: Chronic Assessment and Plan: With cardiac stents. No acute issues. Continue with aspirin, brilinta, statin (3) Type 2 diabetes mellitus with hyperglycemia, without long-term current use of insulin: Code(s): E11.65 - Type 2 diabetes mellitus with hyperglycemia Status: Acute Assessment and Plan: A1c is 6.2. Continue home glimepiride and Ozempic (4) Hypomagnesemia: Code(s): E83.42 - Hypomagnesemia Status: Acute Assessment and Plan: Magnesium was 1.2 on presentation and was supplemented with IV magnesium sulfate. Magnesium levels improved. He reports history of hypomagnesemia and had been on snf magnesium supplementation which was discontinued about 6 months ago. I started him on p.o. magnesium oxide 400 mg daily and he was instructed to repeat magnesium level in 1 week with results to PCP for further management. (5) Retinopathy: Code(s): H35.00 - Unspecified background retinopathy Status: Acute Assessment and Plan: He is established with a retina specialist for management of diabetic and hypertensive retinopathy. He has intermittent flashes/floaters and blurred vision that was relatively unchanged and his symptoms resolved on my evaluation. He will continue follow-up with his retina specialist. Instructed to return to the ED should he have further visual changes or decreased visual acuity. DS: Summary Hospital Course Hospital Course: Date of admission: 12/31/2020 Date of discharge: 01/01/2021 Basim Mustafa is a 60-year-old male with a history of coronary artery disease, hypertension, hyperlipidemia, type 2 diabetes mellitus complicated by retinopathy who presented to the emergency department on 12/31/2020 after bring referred to the ED by his emergency specialist for evaluation of hypertensive urgency. On presentation to the emergency department, his blood pressure was 204/96, additional vital signs stable, CBC and BMP unremarkable. He was admitted to the hospitalist service for further evaluation and management. Please see above for further details. He did have improvement in his blood pressures with goal 20% reduction. He will continue monitoring blood pressures at home as described above. Given his overall improvement, he was determined to no longer require inpatient care and was felt to be stable for discharge. He felt comfortable with plans for discharge home and will bharath
[2021-01-01 17:11] LABS: Glucose Point of Care 109 mg/dl (65-105)
== END 2021-01-01 18:05 | disposition home or self-care (01) | DRG 305 ==
LOC: ANHED 15:02 → ANHIMU 20:46
PROVIDERS: Nurse Practitioner; Admitting Provider Internal Medicine Critical Care Medicine; Emergency Provider Emergency Medicine; PCP Internal Medicine; Visit Provider Physician Assistant
DX: I16.0 Hypertensive urgency (principal); H35.033 Hypertensive retinopathy, bilateral; E11.319 Type 2 diabetes mellitus with unspecified diabetic retinopathy without macular edema; I25.10 Atherosclerotic heart disease of native coronary artery without angina pectoris; E11.65 Type 2 diabetes mellitus with hyperglycemia; E83.42 Hypomagnesemia; Z23 Encounter for immunization; E78.5 Hyperlipidemia, unspecified; K21.9 Gastro-esophageal reflux disease without esophagitis; M10.9 Gout, unspecified; M48.00 Spinal stenosis, site unspecified; Z95.5 Presence of coronary angioplasty implant and graft; Z87.891 Personal history of nicotine dependence; I25.2 Old myocardial infarction; Z79.82 Long term (current) use of aspirin; Z79.02 Long term (current) use of antithrombotics/antiplatelets
CPT/HCPCS: 36415; 80048; 80053; 82948; 83036; 83735; 84443; 85025; 90471; 90653; 93005; 96374; 99285; A9270; G0008; J0360; J3475

== ENCOUNTER 2021-01-09 07:27 | Outpatient (CLI) | payer OTHER, SELFPAY ==
[2021-01-09 07:51] LABS: Basophils Absolute Auto 0.1 K/mm3 (0.0-0.1); Basophils Percent Auto 1.1 % (0.2-1.2); Eosinophils Absolute Auto 0.2 K/mm3 (0-0.3); Eosinophils Percent Auto 2.6 % (0-4.4); Hematocrit 43.1 % (42.0-52.0); Hemoglobin 14.7 g/dL (14.0-18.0); Immature Granulocyte Absolute 0.02 K/mm3 (0.00-0.031); Immature Granulocyte Percent A 0.3 % (0-0.5); Lymphocytes Absolute Auto 1.34 K/mm3 (0.9-3.2); Lymphocytes Percent Auto 20.8 % (18.3-44.2); Mean Corpuscular HGB Conc 34.1 g/dl (32-36); Mean Corpuscular Volume 96.6 fl (80-100); Mean Platelet Volume 10.3 fl (7.4-10.4); Monocytes Absolute Auto 0.7 K/mm3 (0.1-0.6); Monocytes Percent Auto 10.9 % (2.6-8.5); Neutrophils Absolute Auto 4.1 K/mm3 (1.3-6.7); Neutrophils Percent Auto 64.3 % (45.5-73.1); Platelet Count Result 266 k/mm3 (150-375); Red Blood Count 4.46 M/mm3 (4.6-6.20); Red Cell Distribution Width 12.8 % (11.5-14.5); White Blood Count 6.4 K/mm3 (4.5-10.0)
[2021-01-09 08:08] LABS: Alanine Aminotransferase 22 U/L (4-50); Albumin Level 4.7 g/dL (3.5-5.1); Alkaline Phosphatase 50 U/L (38-126); Anion Gap 11 mmol/L (8-16); Aspartate Amino Transferase 24 U/L (17-59); Bilirubin,Total 0.5 mg/dL (0.2-1.3); Blood Urea Nitrogen 25 mg/dL (9-20); Calcium 9.4 mg/dL (8.4-10.2); Carbon Dioxide 28 mmol/L (22-30); Chloride 96 mmol/L (98-107); Cholesterol 99 mg/dL (0-200); Estimated Glomerular Filt Rate > 60; Glucose 157 mg/dL (65-110); HDL Direct 38 mg/dL; Magnesium 1.3 mg/dL (1.6-2.3); Potassium 4.5 mmol/L (3.4-5.0); Sodium 135 mmol/L (137-145); Triglycerides 120 mg/dL (<150); Uric Acid 5.1 mg/dL (3.5-8.5)
[2021-01-09 08:18] LABS: LDL Cholesterol Direct 40 mg/dL
[2021-01-09 09:15] LABS: Creatinine Urine 100.7 mg/dL
[2021-01-09 10:21] LABS: MALB Creatinine Ratio 542.7 mg/g (0-30); Microalbumin Urine Random 546.5 mg/L (0-16.7)
== END 2021-01-09 07:28 | disposition home or self-care (01) ==
LOC: ANHLAB 07:30
PROVIDERS: PCP Internal Medicine; Visit Provider Physician Assistant
DX: E11.65 Type 2 diabetes mellitus with hyperglycemia (principal); M10.9 Gout, unspecified
CPT/HCPCS: 36415; 80053; 80061; 82043; 83735; 84443; 84550; 85025

== ENCOUNTER 2021-01-16 06:48 | Outpatient (CLI) | payer OTHER, SELFPAY ==
[2021-01-16 08:34] LABS: Alanine Aminotransferase 22 U/L (4-50); Albumin Level 4.5 g/dL (3.5-5.1); Alkaline Phosphatase 51 U/L (38-126); Anion Gap 11 mmol/L (8-16); Aspartate Amino Transferase 25 U/L (17-59); Bilirubin,Total 0.3 mg/dL (0.2-1.3); Blood Urea Nitrogen 23 mg/dL (9-20); Calcium 9.4 mg/dL (8.4-10.2); Carbon Dioxide 29 mmol/L (22-30); Chloride 99 mmol/L (98-107); Estimated Glomerular Filt Rate > 60; Glucose 141 mg/dL (65-110); Magnesium 1.4 mg/dL (1.6-2.3); Potassium 4.9 mmol/L (3.4-5.0); Sodium 139 mmol/L (137-145)
[2021-01-16 09:04] LABS: Prostate Specific Antigen 1.3 ng/mL (< OR = 4.0)
[2021-01-23 14:28] LABS: Renin 0.45 ng/mL/h (0.25-5.82)
== END 2021-01-16 06:49 | disposition home or self-care (01) ==
LOC: ANHLAB 06:52
PROVIDERS: PCP Internal Medicine; Visit Provider Internal Medicine
DX: Z12.5 Encounter for screening for malignant neoplasm of prostate (principal); I10 Essential (primary) hypertension
CPT/HCPCS: 36415; 80053; 82088; 83735; 84153; 84244; G0103

== ENCOUNTER 2021-01-18 13:28 | Outpatient (NON) | payer OTHER, SELFPAY ==
[2021-01-21 15:30] LABS: Creatinine, Random Urine 105 mg/dL (20-320); Metanephrine, Total Urine 418 mcg/g cr (149-603); Metanephrine, Urine 151 mcg/g cr (21-153); Normetanephrine, Urine 267 mcg/g cr (108-524)
== END 2021-01-18 13:29 | disposition home or self-care (01) ==
PROVIDERS: PCP Internal Medicine; Visit Provider Internal Medicine
DX: I10 Essential (primary) hypertension (principal)
CPT/HCPCS: 82570; 83835

== ENCOUNTER 2021-02-12 00:41 | Day surgery (SDC) | payer OTHER, SELFPAY ==
[2021-01-27 12:32] VITALS: BMI 28.6
[2021-02-12 10:13] VITALS: BP 152/96; PULSE 79; RESP 16; TEMP 36.3; O2SAT 97; BMI 28.3
[2021-02-12] MEDS: LACTATED RINGERS 1,000 ML 150 ML IV CONT (10:23)
--- NOTE | 2021-02-12 10:32 | WPDANESEPPF ---
Anes - Initial Pre Proc Eval Procedure: Operation Date: 02/12/21 11:15 Proposed Procedures p Screening Colonoscopy - Alan Justin MD Date/Time: 02/12/21 10:32 Surgeon: Alan Justin MD Pre Op Diagnosis: hx of colon polyps Patient Data Age: 60 Gender: M Height: 1.57 m Weight: 70.2 kg Last Vital Signs Temp 36.3 C L 02/12/21 10:13 Pulse 79 02/12/21 10:13 Resp 16 02/12/21 10:13 BP 152/96 H 02/12/21 10:13 Pulse Ox 97 02/12/21 10:13 Allergies Allergy/AdvReac Type Severity Reaction Status Date / Time No Known Allergies Allergy Verified 02/12/21 10:11 Home Medications Medication Instructions Recorded Confirmed Type aspirin 81 mg tablet,delayed 81 mg PO DAILY 01/27/20 02/12/21 History release metoprolol succinate 50 mg PO QAM 04/13/20 02/12/21 History blood sugar diagnostic #50 ea 06/10/20 01/13/21 Rx allopurinol 300 mg tablet 300 mg PO DAILY #90 tablet 09/28/20 02/12/21 Rx glimepiride 4 mg tablet 4 mg PO BID 90 Days #180 tablet 11/20/20 02/12/21 Rx flash glucose sensor #6 ea 12/14/20 01/08/21 Rx semaglutide 1 mg/dose (2 mg/1.5 1 mg SUBCUT WEEKLY 84 Days #9 ml 12/14/20 02/12/21 Rx mL) subcutaneous pen injector fluticasone propionate 2 spray INTRANASAL QAM 12/31/20 02/12/21 History ketorolac 1 drp LEFT EYE BID 12/31/20 02/12/21 History nitroglycerin 0.4 mg SUBLINGUAL Q5M PRN 12/31/20 02/12/21 History naproxen sodium [Aleve] 220 mg PO QAM PRN #0 tablet 01/01/21 02/12/21 Rx magnesium oxide 400 mg (241.3 mg 400 mg PO DAILY #90 tablet 01/07/21 02/12/21 Rx magnesium) tablet quinapril 20 mg tablet 40 mg PO DAILY #90 tablet 01/07/21 02/12/21 Rx cyclobenzaprine 10 mg tablet 10 mg PO .HS PRN #30 tablet 01/08/21 02/12/21 Rx metformin 1,000 mg tablet 1,000 mg PO BID 90 Days #180 tablet 01/08/21 02/12/21 Rx omeprazole 40 mg capsule,delayed 40 mg PO DAILY #30 cap 01/22/21 02/12/21 Rx release rosuvastatin 5 mg tablet 5 mg PO QAM #90 tablet 02/01/21 02/12/21 Rx Patient hx anesthesia problems: none Family hx anesthesia problems: none Results Review: All pre-operative results and documents have been reviewed as part of the pre-operative evaluation. [facility] Past Medical History Medical History Acute non-ST elevation myocardial infarction (NSTEMI) Coronary artery disease Dietary counseling and surveillance Dorsalgia GERD (gastroesophageal reflux disease) Gout Hernia HTN (hypertension) Hypercalcemia Hypercholesterolemia Hyperkalemia Impingement syndrome of right shoulder Low back pain Non-ST elevation [place] (NSTEMI) Pure hypercholesterolemia, unspecified Spinal stenosis Type 2 diabetes mellitus with hyperglycemia, without long-term current use of insulin Surgical History Surgical History H/O hernia repair H/O partial thyroidectomy History of knee surgery Azeb S/P coronary artery stent placement 1 stent to the mid RCA Family History Family History Sibling Diabetes mellitus Family history of alcoholism Mother Dementia Heart disease Sibling Family history of seizure disorder Diabetes mellitus Family history of diabetes mellitus in first degree relative Family history of epilepsy Hypertension Asthma Father Diabetes mellitus Family history of alcoholism Cerebrovascular accident Mother Family history of heart disease in male family member before age 55 Family history of cardiovascular disease Diabetes mellitus Family history of arthritis Acute myocardial infarction Family history of diabetes mellitus in first degree relative Patient's mother is Social History Social History Social History: the patient is and lives with his . He desires to have her is a durable power trademark attorney. The patient has 2 childre
[2021-02-12 10:34] LABS: Glucose Point of Care 140 mg/dl (65-105)
--- NOTE | 2021-02-12 10:37 | PM.HPGS ---
History of Present Illness History of Present Illness Consent: Risks, benefits, and alternatives have been discussed and questions answered. Patient agrees to proceed with procedure. Chief complaint: hx of colon polyps Narrative: Basim Mustafa is a 60 year old male with last colonoscopy 10 years ago. Review of Systems Constitutional: Constitutional: Denies headache(s) and Denies weakness Eyes: Eyes: Denies blurry vision ENT: Reports Normal hearing present, Denies headache(s) and Denies neck pain Cardiovascular: Cardiovascular: Denies chest pain and Denies dyspnea Respiratory: Respiratory: Denies dyspnea Gastrointestinal: Gastrointestinal: Reports no additional gastrointestinal complaints Genitourinary: Genitourinary: Denies dysuria Musculoskeletal: Musculoskeletal: Denies neck pain Integumentary/Breasts: Skin/Breast: Denies dry skin Neurologic: Reports Normal hearing present, Denies headache(s) and Denies weakness Psychiatric: Psychiatric: Denies anxiety Endocrine: Endocrine: Denies change in body appearance Hematologic/Lymphatic: Hematologic/Lymphatic: Denies easy bleeding Allergic/Immunologic: Allergic/Immunologic: Denies urticaria PMFSH Past Medical History Medical History (Updated 02/12/21 @ 10:37 by Alan Justin MD) Acute non-ST elevation myocardial infarction (NSTEMI) Colon cancer screening Coronary artery disease Dietary counseling and surveillance Dorsalgia GERD (gastroesophageal reflux disease) Gout Hernia HTN (hypertension) Hypercalcemia Hypercholesterolemia Hyperkalemia Impingement syndrome of right shoulder Low back pain Non-ST elevation [place] (NSTEMI) Pure hypercholesterolemia, unspecified Spinal stenosis Type 2 diabetes mellitus with hyperglycemia, without long-term current use of insulin Surgical History Surgical History H/O hernia repair H/O partial thyroidectomy History of knee surgery Azeb S/P coronary artery stent placement 1 stent to the mid RCA Family History Family History Sibling Diabetes mellitus Family history of alcoholism Mother Dementia Heart disease Sibling Family history of seizure disorder Diabetes mellitus Family history of diabetes mellitus in first degree relative Family history of epilepsy Hypertension Asthma Father Diabetes mellitus Family history of alcoholism Cerebrovascular accident Mother Family history of heart disease in male family member before age 55 Family history of cardiovascular disease Diabetes mellitus Family history of arthritis Acute myocardial infarction Family history of diabetes mellitus in first degree relative Patient's mother is Social History Social History Social History: the patient is and lives with his . 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 The patient has 2 children. 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 the patient no longer smokes cigars Occasionally drinks. code status full code Years smoked: 40 Smoking status: Former smoker Tobacco type: cigars Second hand tobacco smoke exposure: No Additional smoking assessment comments: 1-2 cigars a month, he quit 11 months ago Alcohol intake: current Drinks per week: 7 Alcohol use details: moderate Substance use: never Substance use type: marijuana Last use: in his 20's Living arrangements: with family Gender identity (if verbalized by the patient): Male Spiritual care concerns: No Meds Home Medications and Allergies Home Medications Medication Instructions Recorded Confirmed Type aspirin 81 mg tablet,delayed 81 mg PO DAILY 01/27/20 02/12/21 History release metoprolol succinate 50 mg PO QAM 04/13/20 02/12/21 History blo
[2021-02-12 10:57] VITALS: BP 123/68; PULSE 69; RESP 23; O2SAT 98
[2021-02-12 11:07] VITALS: BP 102/67; PULSE 68; RESP 22; O2SAT 94
[2021-02-12 11:26] LABS: Glucose Point of Care 144 mg/dl (65-105)
== END 2021-02-12 11:27 | disposition home or self-care (01) ==
PROVIDERS: PCP Internal Medicine; Visit Provider Internal Medicine Gastroenterology
PROC: 0DJD8ZZ Inspection of Lower Intestinal Tract, Via Natural or Artificial Opening Endoscopic (ICD-10-PCS; CPT 45378; principal; 2021-02-12 11:15)
DX: Z12.11 Encounter for screening for malignant neoplasm of colon (principal); D12.5 Benign neoplasm of sigmoid colon; D12.3 Benign neoplasm of transverse colon; K64.8 Other hemorrhoids; I25.10 Atherosclerotic heart disease of native coronary artery without angina pectoris; I10 Essential (primary) hypertension; I25.2 Old myocardial infarction; E78.00 Pure hypercholesterolemia, unspecified; K21.9 Gastro-esophageal reflux disease without esophagitis; M10.9 Gout, unspecified; E11.9 Type 2 diabetes mellitus without complications; Z95.5 Presence of coronary angioplasty implant and graft; Z87.891 Personal history of nicotine dependence; Z79.82 Long term (current) use of aspirin; Z79.84 Long term (current) use of oral hypoglycemic drugs; Z79.899 Other long term (current) drug therapy
CPT/HCPCS: 45380; 45385; 82948; 88305; J2704; J7120

== ENCOUNTER → 2021-02-23 15:07 | Outpatient (CLI) | payer OTHER, SELFPAY ==
--- NOTE | ~2021-02-23 | MR_ITS ---
EXAMINATION: MR lumbar spine wo con DATE: 02/23/2021 15:52 INDICATION: Other low back pain. TECHNIQUE: Magnetic resonance imaging (MRI) of the lumbar spine was performed without intravenous con trast. Sequences included sagittal T2-weighted FSE, sagittal T2-weighted FS FSE, sagittal T1-weighted FSE, and axial T2-weighted FSE. COMPARISON: Lumbar spine MRI 03/01/2007 FINDINGS: Bone alignment is normal. There are Schmorl's nodes at most levels. There is mildly decreas ed disc height at L4-L5 and severely decreased disc height at L5-S1 with endplate remodeling. The dis senait spinal cord signal intensity is normal. The conus medullaris is at L1. The following disc levels are specifically discussed: L1-L2: There is a central protrusion. There is mild bilateral facet joint osteoarthritis. There is no neural foraminal stenosis. There is no central canal stenosis. L2-L3: The disc is bulging. There is severe right and mild left facet joint osteoarthritis. There is mild bilateral neural foraminal stenosis. There is mild central canal stenosis. L3-L4: The disc does not extend beyond the endplate margin. There is mild right and moderate left fac et joint osteoarthritis. There is no neural foraminal stenosis. There is no central canal stenosis. L4-L5: The disc is bulging and has an annular fissure. There is severe bilateral facet joint osteoart hritis. There is moderate bilateral neural foraminal stenosis. There is mild central canal stenosis. L5-S1: The disc is bulging and has an annular fissure. There is mild bilateral facet joint osteoarthr itis. There is moderate bilateral neural foraminal stenosis. There is mild central canal stenosis. IMPRESSION: 1. Severe lower lumbar spondylosis, worsened from 03/01/2007. Reviewed, dictated and finalized at location A. [facility] [employer]
== END ==
PROVIDERS: PCP Internal Medicine; Visit Provider Nurse Practitioner Family
DX: M47.817 Spondylosis without myelopathy or radiculopathy, lumbosacral region (principal); M48.07 Spinal stenosis, lumbosacral region
CPT/HCPCS: 72148

== ENCOUNTER 2021-03-20 10:09 | Emergency (ER) | payer OTHER, SELFPAY ==
[2021-03-20 11:16] VITALS: BP 162/93; PULSE 74; RESP 18; TEMP 36.7; O2SAT 100
--- NOTE | 2021-03-20 11:32 | ED.SKABFB ---
HPI - Skin/Abscess/Foreign Bdy General Chief complaint: Skin/Abscess/Foreign Body Stated complaint: rash lt leg Time Seen by Provider: 03/20/21 11:32 Source: patient and RN notes reviewed Mode of arrival: ambulatory Limitations: no limitations History of Present Illness HPI narrative: Basim is a 60-year-old male patient [facility] Patient states he noticed a bite on his lower lateral lower leg. Patient states he thinks has been there about 2 days. He noticed last night that there was increased redness and swelling. Patient has not used any [id number] measures. He has been cleaning it daily MD complaint: insect bite/sting Related Data Home Medications Medication Instructions Recorded Confirmed aspirin 81 mg tablet,delayed 81 mg PO DAILY 01/27/20 03/20/21 release metoprolol succinate 50 mg PO QAM 04/13/20 02/12/21 fluticasone propionate 2 spray INTRANASAL QAM 12/31/20 03/20/21 nitroglycerin 0.4 mg SUBLINGUAL Q5M PRN 12/31/20 02/12/21 acetazolamide 250 mg QID 03/20/21 03/20/21 Allergies Allergy/AdvReac Type Severity Reaction Status Date / Time No Known Allergies Allergy Verified 03/20/21 11:41 Review of Systems Review of Systems: CONSTITUTIONAL: Denies body aches, fever, chills, or sweats. EYES: Denies visual changes, redness, or discharge. ENT: Denies rhinorrhea, congestion, sore throat, or otalgia. CARDIOVASCULAR: Denies chest pain, palpitations, or edema. RESPIRATORY: Denies cough or dyspnea. GASTROINTESTINAL: Denies abdominal pain, nausea, vomiting, or diarrhea. GENITOURINARY: Denies dysuria or hematuria. SKIN: Denies rash, itching,+ left lateral leg wounds. MUSCULOSKELETAL: Denies back pain, joint pain, or myalgia. NEUROLOGIC: Denies headache, numbness, tingling, or weakness. PSYCH: Denies depression or anxiety. All systems reviewed & are unremarkable except as noted in HPI and below PMFSH Past Medical History Medical History Acute non-ST elevation myocardial infarction (NSTEMI) Colon cancer screening Coronary artery disease Dietary counseling and surveillance Dorsalgia GERD (gastroesophageal reflux disease) Gout Hernia HTN (hypertension) Hypercalcemia Hypercholesterolemia Hyperkalemia Impingement syndrome of right shoulder Low back pain Non-ST elevation [place] (NSTEMI) Pure hypercholesterolemia, unspecified Spinal stenosis Type 2 diabetes mellitus with hyperglycemia, without long-term current use of insulin Surgical History Surgical History H/O hernia repair H/O partial thyroidectomy History of knee surgery Azeb S/P coronary artery stent placement 1 stent to the mid RCA Family History Family History Sibling Diabetes mellitus Family history of alcoholism Mother Dementia Heart disease Sibling Family history of seizure disorder Diabetes mellitus Family history of diabetes mellitus in first degree relative Family history of epilepsy Hypertension Asthma Father Diabetes mellitus Family history of alcoholism Cerebrovascular accident Mother Family history of heart disease in male family member before age 55 Family history of cardiovascular disease Diabetes mellitus Family history of arthritis Acute myocardial infarction Family history of diabetes mellitus in first degree relative Patient's mother is Social History Social History Social History: the patient is and lives with his . 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 The patient has 2 children. 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 the patient no longer smokes cigars Occasionally drinks. code status full code Years smoked: 40 Smoking status: Former smoker
== END 2021-03-20 11:55 | disposition home or self-care (01) ==
PROVIDERS: Emergency Provider Nurse Practitioner Family; PCP Internal Medicine
DX: L03.116 Cellulitis of left lower limb (principal); I25.10 Atherosclerotic heart disease of native coronary artery without angina pectoris; K21.9 Gastro-esophageal reflux disease without esophagitis; M10.9 Gout, unspecified; I10 Essential (primary) hypertension; E78.00 Pure hypercholesterolemia, unspecified; I25.2 Old myocardial infarction; M48.00 Spinal stenosis, site unspecified; E11.9 Type 2 diabetes mellitus without complications; Z79.4 Long term (current) use of insulin; Z95.5 Presence of coronary angioplasty implant and graft; Z79.82 Long term (current) use of aspirin
CPT/HCPCS: 99213; G0463

== ENCOUNTER 2021-03-31 19:49 | Outpatient (NON) | payer OTHER, SELFPAY | END 2021-03-31 19:50 | disposition home or self-care (01) | PROVIDERS: PCP Internal Medicine; Visit Provider Surgery Plastic and Reconstructive Surgery | DX: L02.91 Cutaneous abscess, unspecified (principal) | CPT/HCPCS: 87070; 87075; 87147; 87181; 87186; 87205 ==

== ENCOUNTER 2021-07-03 07:45 | Outpatient (CLI) | payer OTHER, SELFPAY ==
[2021-07-03 08:23] LABS: Basophils Absolute Auto 0.1 K/mm3 (0.0-0.1); Basophils Percent Auto 1.1 % (0.2-1.2); Eosinophils Absolute Auto 0.2 K/mm3 (0-0.3); Eosinophils Percent Auto 2.7 % (0-4.4); Hematocrit 42.7 % (42.0-52.0); Hemoglobin 13.8 g/dL (14.0-18.0); Immature Granulocyte Absolute 0.02 K/mm3 (0.00-0.031); Immature Granulocyte Percent A 0.4 % (0-0.5); Lymphocytes Absolute Auto 0.87 K/mm3 (0.9-3.2); Lymphocytes Percent Auto 15.7 % (18.3-44.2); Mean Corpuscular HGB Conc 32.3 g/dl (32-36); Mean Corpuscular Hemoglobin 32.2 pg (26-34); Mean Corpuscular Volume 99.5 fl (80-100); Mean Platelet Volume 10.4 fl (7.4-10.4); Monocytes Absolute Auto 0.7 K/mm3 (0.1-0.6); Monocytes Percent Auto 13.2 % (2.6-8.5); Neutrophils Absolute Auto 3.7 K/mm3 (1.3-6.7); Neutrophils Percent Auto 66.9 % (45.5-73.1); Platelet Count Result 263 k/mm3 (150-375); Red Blood Count 4.29 M/mm3 (4.6-6.20); Red Cell Distribution Width 14.3 % (11.5-14.5); White Blood Count 5.5 K/mm3 (4.5-10.0)
[2021-07-03 08:34] LABS: Albumin Level 4.9 g/dL (3.5-5.1); Anion Gap 13 mmol/L (8-16); Blood Urea Nitrogen 26 mg/dL (9-20); Calcium 8.7 mg/dL (8.4-10.2); Carbon Dioxide 18 mmol/L (22-30); Chloride 110 mmol/L (98-107); Estimated Glomerular Filt Rate > 60; Glucose 155 mg/dL (65-110); Phosphorus 3.9 mg/dL (2.5-4.5); Potassium 3.6 mmol/L (3.4-5.0); Sodium 141 mmol/L (137-145)
[2021-07-03 08:35] LABS: Creatinine Urine 185.9 mg/dL; Total Protein Urine Random 21 mg/dL; Ur Ttl Prot Creatinine Ratio 0.11 mg/mg (0-0.20)
[2021-07-03 08:36] LABS: Alanine Aminotransferase 72 U/L (4-50); Albumin Level 4.9 g/dL (3.5-5.1); Alkaline Phosphatase 58 U/L (38-126); Anion Gap 13 mmol/L (8-16); Aspartate Amino Transferase 46 U/L (17-59); Bilirubin,Total 0.3 mg/dL (0.2-1.3); Blood Urea Nitrogen 26 mg/dL (9-20); Calcium 8.8 mg/dL (8.4-10.2); Carbon Dioxide 18 mmol/L (22-30); Chloride 110 mmol/L (98-107); Cholesterol 106 mg/dL (0-200); Estimated Glomerular Filt Rate > 60; Glucose 156 mg/dL (65-110); HDL Direct 42 mg/dL; Magnesium 1.6 mg/dL (1.6-2.3); Potassium 3.6 mmol/L (3.4-5.0); Sodium 141 mmol/L (137-145); Triglycerides 62 mg/dL (<150); Uric Acid 4.6 mg/dL (3.5-8.5)
[2021-07-03 08:41] LABS: Complement C3 108 mg/dL (88-165)
[2021-07-03 08:45] LABS: Sodium Urine Random 122 meq/L
[2021-07-03 08:47] LABS: LDL Cholesterol Direct 45 mg/dL
[2021-07-03 08:55] LABS: Creatinine Urine 181.7 mg/dL
[2021-07-03 09:00] LABS: MALB Creatinine Ratio 40.1 mg/g (0-30); Microalbumin Urine Random 72.9 mg/L (0-16.7)
[2021-07-03 09:16] LABS: Eosinophil Urine None Seen % (None Seen)
[2021-07-06 17:33] LABS: Anti Nuclear Antibody Pattern Nuclear, Nucleolar; Anti Nuclear Antibody Titer 1:40 (Negative)
[2021-07-07 11:27] LABS: Anti Glomerular Basement Memb <1.0 AI (<1.0)
[2021-07-07 15:55] LABS: Albumin 4.4 g/dL (3.8-4.8); Alpha 1 Globulin 0.3 g/dL (0.2-0.3); Alpha 2 Globulin 0.7 g/dL (0.5-0.9); Beta 1 Globulin 0.5 g/dL (0.4-0.6); Gamma Globulin 0.6 g/dL (0.8-1.7); Interpretation Consistent with; Protein, Total 6.8 g/dL (6.1-8.1)
[2021-07-08 07:09] LABS: Total Protein/Creatinine Ratio 201 mg/g creat (22-128)
[2021-07-09 13:58] LABS: ANCA Screen Negative (Negative)
== END 2021-07-03 07:46 | disposition home or self-care (01) ==
PROVIDERS: PCP Internal Medicine; Visit Provider Internal Medicine
DX: E83.42 Hypomagnesemia (principal); Z12.5 Encounter for screening for malignant neoplasm of prostate; M10.9 Gout, unspecified; E11.65 Type 2 diabetes mellitus with hyperglycemia; R80.8 Other proteinuria; E11.29 Type 2 diabetes mellitus with other diabetic kidney complication; I10 Essential (primary) hypertension
CPT/HCPCS: 36415; 80053; 80061; 80069; 82043; 82570; 83520; 83735; 84153; 84155; 84156; 84165; 84166; 84300; 84443; 84550; 85025; 85999; 86036; 86038; 86039; 86160; 86225; G0103

== ENCOUNTER 2021-07-26 07:26 | Outpatient (CLI) | payer OTHER, SELFPAY ==
--- NOTE | ~2021-07-26 | US_ITS ---
EXAMINATION: US renal BI, US retroperitoneal duplex ltd DATE: 07/26/2021 08:27 INDICATION: Diabetes with renal manifestations. Hypertension. Proteinuria. TECHNIQUE: 1. Multiple grayscale and color Doppler images of the kidneys were obtained. 2. Multiple grayscale and pulsed Doppler images of the aorta and renal arteries were obtained. COMPARISON: None. FINDINGS: Kidneys: The right kidney measures 9.1 x 5.4 x 4.8 cm. The left kidney measures 10.6 x 5.1 x 4.9 cm. The kidne ys demonstrate normal echogenicity. There is no hydronephrosis in either kidney. No stones identifie d. The bladder is normal. Renal arteries/vascular: The aorta peak systolic velocity is 77 cm/s. The right renal artery peak systolic velocity is 60 cm/s in the proximal segment, 67 cm/s in the mid segment, and 42 cm/s in the distal segment. The left verenice al artery peak systolic velocity is 70 cm/s in the proximal segment, 64 cm/s in the mid segment, and 60 cm/s in the distal segment. IMPRESSION: 1. Normal kidneys with no hydronephrosis. 2. No Doppler evidence of renal artery stenosis. Reviewed, dictated and finalized at location A. IMPRESSION: 1. Normal kidneys with no hydronephrosis. 2. No Doppler evidence of renal artery stenosis.
== END 2021-07-26 07:27 | disposition home or self-care (01) ==
LOC: ANHIMG 07:29
PROVIDERS: PCP Internal Medicine; Visit Provider Internal Medicine Nephrology
DX: R80.8 Other proteinuria (principal); E11.29 Type 2 diabetes mellitus with other diabetic kidney complication; I10 Essential (primary) hypertension
CPT/HCPCS: 76775; 93976

== ENCOUNTER 2021-11-02 06:41 | Outpatient (CLI) | payer OTHER, SELFPAY ==
[2021-11-02 07:49] LABS: Albumin Level 4.4 g/dL (3.5-5.1); Anion Gap 15 mmol/L (8-16); Blood Urea Nitrogen 28 mg/dL (9-20); Calcium 8.5 mg/dL (8.4-10.2); Carbon Dioxide 19 mmol/L (22-30); Chloride 108 mmol/L (98-107); Estimated Glomerular Filt Rate > 60; Glucose 142 mg/dL (65-110); Phosphorus 4.3 mg/dL (2.5-4.5); Potassium 3.7 mmol/L (3.4-5.0); Sodium 142 mmol/L (137-145)
[2021-11-02 07:52] LABS: Creatinine Urine 114.3 mg/dL; Total Protein Urine Random 12 mg/dL
== END 2021-11-02 06:42 | disposition home or self-care (01) ==
LOC: ANHLAB 06:43
PROVIDERS: PCP Internal Medicine; Visit Provider Internal Medicine Nephrology
DX: R80.8 Other proteinuria (principal); E11.29 Type 2 diabetes mellitus with other diabetic kidney complication; I10 Essential (primary) hypertension
CPT/HCPCS: 36415; 80069; 82570; 84156

== ENCOUNTER 2022-05-07 06:45 | Outpatient (CLI) | payer OTHER, SELFPAY ==
[2022-05-07 08:37] LABS: Albumin Level 4.9 g/dL (3.5-5.1); Anion Gap 6 mmol/L (8-16); Blood Urea Nitrogen 31 mg/dL (9-20); Calcium 9.2 mg/dL (8.4-10.2); Carbon Dioxide 32 mmol/L (22-30); Chloride 97 mmol/L (98-107); Estimated Glomerular Filt Rate > 60; Glucose 134 mg/dL (65-110); Phosphorus 4.4 mg/dL (2.5-4.5); Potassium 4.5 mmol/L (3.4-5.0); Sodium 135 mmol/L (137-145)
[2022-05-07 10:13] LABS: Total Protein Urine Random 11 mg/dL; Ur Ttl Prot Creatinine Ratio 0.17 mg/mg (0-0.20)
== END 2022-05-07 06:46 | disposition home or self-care (01) ==
LOC: ANHLAB 06:47
PROVIDERS: PCP Internal Medicine; Visit Provider Internal Medicine Nephrology
DX: E11.29 Type 2 diabetes mellitus with other diabetic kidney complication (principal); R80.9 Proteinuria, unspecified
CPT/HCPCS: 36415; 80069; 82570; 84156

== ENCOUNTER 2022-08-20 06:37 | Outpatient (CLI) | payer OTHER, SELFPAY ==
[2022-08-20 07:12] LABS: Basophils Percent Auto 0.9 % (0.2-1.2); Eosinophils Absolute Auto 0.1 K/mm3 (0-0.3); Eosinophils Percent Auto 2.3 % (0-4.4); Hematocrit 46.4 % (42.0-52.0); Hemoglobin 15.3 g/dL (14.0-18.0); Immature Granulocyte Absolute 0.01 K/mm3 (0.00-0.031); Immature Granulocyte Percent A 0.2 % (0-0.5); Lymphocytes Absolute Auto 0.87 K/mm3 (0.9-3.2); Mean Corpuscular Hemoglobin 31.8 pg (26-34); Mean Corpuscular Volume 96.5 fl (80-100); Mean Platelet Volume 10.5 fl (7.4-10.4); Monocytes Absolute Auto 0.6 K/mm3 (0.1-0.6); Monocytes Percent Auto 13.1 % (2.6-8.5); Neutrophils Absolute Auto 2.8 K/mm3 (1.3-6.7); Neutrophils Percent Auto 63.5 % (45.5-73.1); Platelet Count Result 180 k/mm3 (150-375); Red Blood Count 4.81 M/mm3 (4.6-6.20); Red Cell Distribution Width 13.1 % (11.5-14.5); White Blood Count 4.4 K/mm3 (4.5-10.0)
[2022-08-20 07:33] LABS: Alanine Aminotransferase 29 U/L (6-50); Albumin Level 4.5 g/dL (3.5-5.1); Alkaline Phosphatase 57 U/L (38-126); Anion Gap 6 mmol/L (8-16); Anion Gap 8 mmol/L (8-16); Aspartate Amino Transferase 27 U/L (17-59); Bilirubin,Total 0.4 mg/dL (0.2-1.3); Blood Urea Nitrogen 27 mg/dL (9-20); Calcium 9.3 mg/dL (8.4-10.2); Calcium 9.4 mg/dL (8.4-10.2); Carbon Dioxide 30 mmol/L (22-30); Carbon Dioxide 32 mmol/L (22-30); Chloride 100 mmol/L (98-107); Chloride 99 mmol/L (98-107); Cholesterol 104 mg/dL (0-200); Estimated Glomerular Filt Rate > 60; Glucose 141 mg/dL (65-110); Glucose 142 mg/dL (65-110); HDL Direct 46 mg/dL; Magnesium 1.6 mg/dL (1.6-2.3); Phosphorus 4.4 mg/dL (2.5-4.5); Potassium 4.3 mmol/L (3.4-5.0); Potassium 4.5 mmol/L (3.4-5.0); Sodium 137 mmol/L (137-145); Sodium 138 mmol/L (137-145); Triglycerides 105 mg/dL (<150)
[2022-08-20 07:33] LABS: Creatinine Urine 54.2 mg/dL; Total Protein Urine Random 48 mg/dL; Ur Ttl Prot Creatinine Ratio 0.89 mg/mg (0-0.20)
[2022-08-20 07:43] LABS: LDL Cholesterol Direct 44 mg/dL
[2022-08-20 08:02] LABS: Prostate Specific Antigen 1.5 ng/mL (< OR = 4.0)
[2022-08-20 09:06] LABS: Creatinine Urine 54.8 mg/dL
[2022-08-20 09:30] LABS: MALB Creatinine Ratio 392.7 mg/g (0-30); Microalbumin Urine Random 215.2 mg/L (0-16.7)
[2022-08-20 10:38] LABS: Folic Acid 18.6 ng/mL (2.76->20)
[2022-08-25 02:40] LABS: Thyroglobulin 19.5 ng/mL (2.8-40.9); Thyroglobulin Antibodies <1 IU/mL (<=1)
== END 2022-08-20 06:38 | disposition home or self-care (01) ==
PROVIDERS: PCP Internal Medicine; Referring Provider Internal Medicine Nephrology; Visit Provider Internal Medicine
DX: E11.65 Type 2 diabetes mellitus with hyperglycemia (principal); E83.42 Hypomagnesemia; E78.5 Hyperlipidemia, unspecified; R53.83 Other fatigue; R80.9 Proteinuria, unspecified
CPT/HCPCS: 36415; 80053; 80061; 80069; 82043; 82570; 82607; 82746; 83735; 84153; 84156; 84432; 85025; 86800; G0103

== ENCOUNTER 2023-02-08 12:00 | Outpatient (CLI) | payer OTHER, SELFPAY ==
[2023-02-08 12:43] LABS: Alanine Aminotransferase 25 U/L (6-50); Aspartate Amino Transferase 31 U/L (17-59)
== END 2023-02-08 12:01 | disposition home or self-care (01) ==
LOC: ANHLAB 12:02
PROVIDERS: PCP Internal Medicine; Visit Provider Podiatrist Foot & Ankle Surgery
DX: B35.1 Tinea unguium (principal)
CPT/HCPCS: 36415; 84450; 84460

== ENCOUNTER 2023-04-01 07:07 | Outpatient (CLI) | payer OTHER, SELFPAY ==
[2023-04-01 07:46] LABS: Creatinine Urine 113.2 mg/dL; Total Protein Urine Random 49 mg/dL; Ur Ttl Prot Creatinine Ratio 0.43 mg/mg (0-0.20)
[2023-04-01 07:58] LABS: Albumin Level 4.4 g/dL (3.5-5.1); Anion Gap 9 mmol/L (8-16); Blood Urea Nitrogen 20 mg/dL (9-20); Calcium 9.5 mg/dL (8.4-10.2); Carbon Dioxide 31 mmol/L (22-30); Chloride 101 mmol/L (98-107); Estimated Glomerular Filt Rate > 60; Glucose 168 mg/dL (65-110); Phosphorus 3.9 mg/dL (2.5-4.5); Potassium 4.6 mmol/L (3.4-5.0); Sodium 141 mmol/L (137-145)
== END 2023-04-01 07:08 | disposition home or self-care (01) ==
LOC: ANHLAB 07:09
PROVIDERS: PCP Internal Medicine; Visit Provider Internal Medicine Nephrology
DX: E11.29 Type 2 diabetes mellitus with other diabetic kidney complication (principal); R80.9 Proteinuria, unspecified; I10 Essential (primary) hypertension
CPT/HCPCS: 36415; 80069; 82570; 84156

== ENCOUNTER 2023-08-05 11:10 | Emergency (ER) | payer OTHER, SELFPAY ==
--- NOTE | ~2023-08-05 | XR_ITS ---
EXAMINATION: XR hand RT min 3V DATE: 08/05/2023 11:50 INDICATION: Right hand injury. TECHNIQUE: 3 views of right hand were obtained. COMPARISON: Right hand radiographs 05/17/2011 FINDINGS: Bone alignment is normal. No fracture. There is mild osteoarthritis of triscaphe joint, sec ond and third metacarpophalangeal joints, and some of the interphalangeal joints. There is a calcific ation at medial aspect of fourth proximal interphalangeal joint. IMPRESSION: 1. Mild polyarticular osteoarthritis. Reviewed, dictated and finalized at location A.
[2023-08-05 11:19] VITALS: BP 149/103; PULSE 87; RESP 18; TEMP 36.3; O2SAT 97
[2023-08-05 11:26] VITALS: BP 149/103; PULSE 87; RESP 18; TEMP 36.3; O2SAT 97
--- NOTE | 2023-08-05 11:44 | ED.WOUNDLAC ---
HPI - Wound/Laceration General Chief Complaint: Wound/Laceration Stated Complaint: Right Hand Injury Time Seen by Provider: 08/05/23 11:37 Source: patient and RN notes reviewed Mode of arrival: ambulatory Limitations: no limitations History of Present Illness HPI narrative: Patient presents today with a high-pressure water sprayer injury to the dorsum of his right hand. He accidentally struck the water stream to his hand approximately 1 hour prior to arrival while washing his car at a local car wash. Denies there was any soap or other material in the water stream at the time of impact. Patient reports he had some immediate pain to the 1st through 3rd fingers, but this resolved quickly and fully. Denies numbness or tingling. He is not up-to-date on his tetanus vaccine. Patient is diabetic Related Data Home Medications Medication Instructions Recorded Confirmed aspirin 81 mg tablet,delayed 81 mg PO DAILY 01/27/20 08/05/23 release (Adult Aspirin Regimen) metoprolol succinate 50 mg 50 mg PO QAM 04/13/20 08/05/23 tablet,extended release 24 hr nitroglycerin 0.4 mg sublingual 0.4 mg sublingual Q5M Chest Pain 12/31/20 08/05/23 tablet fluticasone propionate 50 1 spray intranasal DAILY 01/05/22 08/05/23 mcg/actuation nasal spray,suspension (Allergy Relief (fluticasone)) Allergies Allergy/AdvReac Type Severity Reaction Status Date / Time No Known Allergies Allergy Verified 08/05/23 11:25 Review of Systems Review of Systems: CONSTITUTIONAL: Denies body aches, fever, chills, or sweats. EYES: Denies visual changes, redness, or discharge. ENT: Denies rhinorrhea, congestion, sore throat, or otalgia. CARDIOVASCULAR: Denies chest pain, palpitations, or edema. RESPIRATORY: Denies cough or dyspnea. GASTROINTESTINAL: Denies abdominal pain, nausea, vomiting, or diarrhea. GENITOURINARY: Denies dysuria or hematuria. SKIN: + right hand laceration MUSCULOSKELETAL: Denies back pain, joint pain, or myalgia. NEUROLOGIC: Denies headache, numbness, tingling, or weakness. PSYCH: Denies depression or anxiety. [facility] Past Medical History Medical History Acute non-ST elevation myocardial infarction (NSTEMI) Coronary artery disease Dorsalgia GERD (gastroesophageal reflux disease) Gout Hernia HTN (hypertension) Hypercalcemia Hypercholesterolemia Hyperkalemia Hypomagnesemia Impingement syndrome of right shoulder Low back pain Non-ST elevation [place] (NSTEMI) Optic neuritis Retinopathy Spinal stenosis Type 2 diabetes mellitus with hyperglycemia, without long-term current use of insulin Surgical History Surgical History H/O hernia repair H/O partial thyroidectomy History of knee surgery Azeb S/P coronary artery stent placement 1 stent to the mid RCA Family History Family History Sibling Diabetes mellitus Family history of alcoholism Mother Dementia Heart disease Sibling Family history of seizure disorder Diabetes mellitus Family history of diabetes mellitus in first degree relative Family history of epilepsy Hypertension Asthma Father Diabetes mellitus Family history of alcoholism Cerebrovascular accident Mother Family history of heart disease in male family member before age 55 Family history of cardiovascular disease Diabetes mellitus Family history of arthritis Acute myocardial infarction Family history of diabetes mellitus in first degree relative Patient's mother is Social History Social History Social History: the patient is and lives with his . He desires to have her is a durable power assistant district attorney. The patient has 2 children. 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
[2023-08-05] MEDS: TETANUS,DIPHTHERIA,AC PERTUSSIS ADULT (0.5 ML) BOOSTRIX IM (12:11)
[2023-08-05 12:12] VITALS: BP 126/83; PULSE 75
== END 2023-08-05 12:47 | disposition home or self-care (01) ==
PROVIDERS: Emergency Provider Nurse Practitioner; PCP Physician Assistant
DX: S61.411A Laceration without foreign body of right hand, initial encounter (principal); X58.XXXA Exposure to other specified factors, initial encounter; Z23 Encounter for immunization; Z87.891 Personal history of nicotine dependence; I25.10 Atherosclerotic heart disease of native coronary artery without angina pectoris; K21.9 Gastro-esophageal reflux disease without esophagitis; M10.9 Gout, unspecified; I10 Essential (primary) hypertension; E78.00 Pure hypercholesterolemia, unspecified; I25.2 Old myocardial infarction; E11.9 Type 2 diabetes mellitus without complications; M48.00 Spinal stenosis, site unspecified; Z95.5 Presence of coronary angioplasty implant and graft; Z90.89 Acquired absence of other organs; Z79.82 Long term (current) use of aspirin
CPT/HCPCS: 73130; 90471; 90715; 99213; G0463

== ENCOUNTER 2023-10-12 09:02 | Outpatient (CLI) | payer MEDICARE, OTHER, SELFPAY ==
[2023-10-12 10:05] LABS: Basophils Absolute Auto 0.1 K/mm3 (0.0-0.1); Eosinophils Absolute Auto 0.1 K/mm3 (0-0.3); Eosinophils Percent Auto 2.5 % (0-4.4); Hemoglobin 16.5 g/dL (14.0-18.0); Immature Granulocyte Absolute 0.02 K/mm3 (0.00-0.031); Immature Granulocyte Percent A 0.4 % (0-0.5); Lymphocytes Absolute Auto 1.26 K/mm3 (0.9-3.2); Lymphocytes Percent Auto 25.9 % (18.3-44.2); Mean Corpuscular Hemoglobin 32.4 pg (26-34); Mean Platelet Volume 10.7 fl (7.4-10.4); Monocytes Absolute Auto 0.6 K/mm3 (0.1-0.6); Monocytes Percent Auto 12.1 % (2.6-8.5); Neutrophils Absolute Auto 2.8 K/mm3 (1.3-6.7); Neutrophils Percent Auto 58.1 % (45.5-73.1); Platelet Count Result 205 k/mm3 (150-375); Red Cell Distribution Width 13.4 % (11.5-14.5); White Blood Count 4.9 K/mm3 (4.5-10.0)
[2023-10-12 10:15] LABS: Creatinine Urine 75.3 mg/dL
[2023-10-12 10:15] LABS: Alanine Aminotransferase 21 U/L (6-50); Albumin Level 4.9 g/dL (3.5-5.1); Alkaline Phosphatase 48 U/L (38-126); Anion Gap 13 mmol/L (4-12); Aspartate Amino Transferase 26 U/L (17-59); Bilirubin,Total 0.8 mg/dL (0.2-1.3); Blood Urea Nitrogen 25 mg/dL (9-20); Calcium 9.2 mg/dL (8.4-10.2); Carbon Dioxide 28 mmol/L (22-30); Chloride 95 mmol/L (98-107); Cholesterol 147 mg/dL (0-200); Estimated Glomerular Filt Rate > 60; Glucose 120 mg/dL (65-110); HDL Direct 49 mg/dL; Potassium 4.5 mmol/L (3.4-5.0); Sodium 136 mmol/L (137-145); Triglycerides 118 mg/dL (<150)
[2023-10-12 10:16] LABS: Phosphorus 3.7 mg/dL (2.5-4.5)
[2023-10-12 10:16] LABS: Creatinine Urine 76.9 mg/dL; Total Protein Urine Random 32 mg/dL; Ur Ttl Prot Creatinine Ratio 0.42 mg/mg (0-0.20)
[2023-10-12 10:19] LABS: MALB Creatinine Ratio 227.2 mg/g (0-30); Microalbumin Urine Random 171.1 mg/L (0-16.7)
[2023-10-12 10:27] LABS: LDL Cholesterol Direct 73 mg/dL
[2023-10-12 10:47] LABS: Prostate Specific Antigen 1.7 ng/mL (< OR = 4.0)
[2023-10-12 11:24] LABS: Folic Acid > 20.0 ng/mL (2.76->20)
== END 2023-10-12 09:03 | disposition home or self-care (01) ==
LOC: ANHLAB 09:19
PROVIDERS: PCP Internal Medicine; Referring Provider Physician Assistant; Visit Provider Internal Medicine Nephrology
DX: E11.65 Type 2 diabetes mellitus with hyperglycemia (principal); Z12.5 Encounter for screening for malignant neoplasm of prostate; R53.83 Other fatigue; E11.29 Type 2 diabetes mellitus with other diabetic kidney complication; I10 Essential (primary) hypertension; R80.9 Proteinuria, unspecified
CPT/HCPCS: 36415; 80053; 80061; 82043; 82570; 82607; 82746; 84100; 84153; 84156; 84443; 85025; G0103

== ENCOUNTER 2024-01-01 08:48 | Outpatient (CLI) | payer MEDICARE, OTHER, SELFPAY ==
--- NOTE | ~2024-01-01 | XR_ITS ---
XR shoulder RT min 2V Ordering provider: Ok Marcelo APRN History: . M25.511 - Pain in right shoulder . Comparison: None. FINDINGS: BONES: No acute fracture or dislocation. JOINT SPACES: The acromioclavicular joint shows osteoarthritic changes.. The glenohumeral joint shows marginal osteophytes inferiorly. SOFT TISSUES: Normal. IMPRESSION: No acute osseous abnormality right shoulder. Mild osteoarthritic changes of the acromioclavicular and glenohumeral joints. Reviewed, dictated and finalized at location A.
== END 2024-01-01 08:49 | disposition home or self-care (01) ==
LOC: ANHIMG 08:52
PROVIDERS: PCP Internal Medicine; Visit Provider Nurse Practitioner
DX: M25.511 Pain in right shoulder (principal); M19.011 Primary osteoarthritis, right shoulder
CPT/HCPCS: 73030

== ENCOUNTER 2024-01-26 09:55 | Outpatient (CLI) | payer MEDICARE, OTHER, SELFPAY ==
--- NOTE | ~2024-01-26 | MR_ITS ---
EXAMINATION: MR shoulder RT wo con DATE: 01/26/2024 10:40 INDICATION: Right shoulder pain. TECHNIQUE: Magnetic resonance imaging (MRI) of the right shoulder was performed without intravenous c ontrast. Sequences included axial PD-weighted FS FSE, coronal oblique PD-weighted FS FSE and T2-weigh norma FS FSE, and sagittal oblique T2-weighted FS FSE and T1-weighted FSE. COMPARISON: Right shoulder radiographs 01/01/2024 FINDINGS: Coracoacromial arch: The acromion undersurface is curved in morphology with anterior hook (type III). There is a preacromi al os acromiale. There is severe osteoarthritis of acromioclavicular joint including inferiorly direc norma osteophytes. There is moderate subacromial/subdeltoid bursitis. Rotator cuff: There is a full-thickness tear of supraspinatus and infraspinatus tendons measuring 1.8 cm anterior t o posterior by 3.9 cm proximal to distal. Teres minor tendon is normal. There is mild subscapularis t endinopathy. There is volume loss of supraspinatus muscle belly. There is mild fatty atrophy of the s upraspinatus muscle belly. Biceps tendon and glenoid labrum: Biceps tendon is in bicipital groove. There is a partial tear of intra-articular biceps tendon. There is a tear of the posterior glenoid labrum with two 6 mm paralabral cysts. Fluid: There is a small glenohumeral joint effusion. Bones/cartilage: There is shallow partial-thickness cartilage loss of glenoid and humeral head. IMPRESSION: 1. Full-thickness rotator cuff tear. 2. Mild glenohumeral joint chondrosis. Labral tear. 3. Severe acromioclavicular joint osteoarthritis. 4. Partial tear of biceps tendon. 5. Moderate subacromial/subdeltoid bursitis and small glenohumeral joint effusion. Reviewed, dictated and finalized at location A. [facility] IMPRESSION: 1. Full-thickness rotator cuff tear. 2. Mild glenohumeral joint chondrosis. Labral tear. 3. Severe acromioclavicular joint osteoarthritis. 4. Partial tear of biceps tendon. 5. Moderate subacromial/subdeltoid bursitis and small glenohumeral joint effusi on.
== END 2024-01-26 09:56 | disposition home or self-care (01) ==
LOC: GOSHIMG 09:57
PROVIDERS: PCP Orthopaedic Surgery; Visit Provider Orthopaedic Surgery
DX: M75.121 Complete rotator cuff tear or rupture of right shoulder, not specified as traumatic (principal); M94.212 Chondromalacia, left shoulder; M19.011 Primary osteoarthritis, right shoulder; S46.211A Strain of muscle, fascia and tendon of other parts of biceps, right arm, initial encounter; S43.431A Superior glenoid labrum lesion of right shoulder, initial encounter; X58.XXXA Exposure to other specified factors, initial encounter; M75.51 Bursitis of right shoulder; M25.411 Effusion, right shoulder
CPT/HCPCS: 73221

== ENCOUNTER 2024-02-22 00:11 | Day surgery (SDC) | payer MEDICARE, OTHER, SELFPAY ==
[2024-02-15 08:54] VITALS: BMI 28.0
[2024-02-22 06:52] VITALS: BP 147/96; PULSE 80; RESP 18; TEMP 36.4; O2SAT 98; BMI 27.3
[2024-02-22] MEDS: LACTATED RINGERS 1,000 ML 150 ML IV CONT (07:04)
[2024-02-22 07:10] LABS: Glucose Point of Care 138 mg/dl (65-105)
--- NOTE | 2024-02-22 07:44 | PM.HPGS ---
History of Present Illness History of Present Illness Consent: Risks, benefits, and alternatives have been discussed and questions answered. Patient agrees to proceed with procedure. Chief complaint: personal hx colonic polyps Narrative: Basim Mustafa is a 63 year old male with colon polyp in 2020 Review of Systems Review of Systems: All systems reviewed & are unremarkable except as noted in HPI and below PMFSH Past Medical History Medical History Acute non-ST elevation myocardial infarction (NSTEMI) Coronary artery disease Dorsalgia GERD (gastroesophageal reflux disease) Gout Hernia HTN (hypertension) Hypercalcemia Hypercholesterolemia Hyperkalemia Hypomagnesemia Impingement syndrome of right shoulder Low back pain Non-ST elevation [place] (NSTEMI) Optic neuritis Retinopathy Spinal stenosis Type 2 diabetes mellitus with hyperglycemia, without long-term current use of insulin Surgical History Surgical History H/O hernia repair H/O partial thyroidectomy History of knee surgery Azeb S/P coronary artery stent placement 1 stent to the mid RCA Family History Family History Sibling Diabetes mellitus Family history of alcoholism Mother Dementia Heart disease Sibling Family history of seizure disorder Diabetes mellitus Family history of diabetes mellitus in first degree relative Family history of epilepsy Hypertension Asthma Father Diabetes mellitus Family history of alcoholism Cerebrovascular accident Mother Family history of heart disease in male family member before age 55 Family history of cardiovascular disease Diabetes mellitus Family history of arthritis Acute myocardial infarction Family history of diabetes mellitus in first degree relative Patient's mother is Social History Social History Social History: the patient is and lives with his . 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 The patient has 2 children. 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 the patient no longer smokes cigars Occasionally drinks. code status full code Smoking packs per day: 0 Smoking cigarettes per day: 0.0 Years smoked: 20 Smoking pack-years: 0.00 Smoking status: Never smoker Tobacco type: cigars Second hand tobacco smoke exposure: No Additional smoking assessment comments: 1-2 cigars a year, he quit 2019 Alcohol intake: current Drinks per week: 5 Alcohol use details: moderate Substance use: former Substance use type: marijuana Last use: in his 20's Do You Feel Safe in your Home?: Yes Lack of Transportation: No Lack of Food: Never True Current Housing: I Have Housing Concerned About Future Housing: No Difficulty Paying Gas/Electric Bills: No Difficulty Paying for Meds: No Currently Unemployed: No Education: High School Diploma/GED Difficulty w/ Childcare or Family Care: No Living arrangements: with family Occupation/Education: occupation Gender identity (if verbalized by the patient): Male Spiritual care concerns: No Meds Home Medications and Allergies Home Medications ?Medication ?Instructions ?Recorded ?Confirmed ?Type aspirin 81 mg tablet,delayed 81 mg PO DAILY 01/27/20 02/22/24 History release (Adult Aspirin Regimen) metoprolol succinate 50 mg 50 mg PO QAM 04/13/20 02/22/24 History tablet,extended release 24 hr nitroglycerin 0.4 mg sublingual 0.4 mg sublingual Q5M PRN Chest 12/31/20 02/15/24 History tablet Pain OneTouch Verio test strips (blood #100 ea 07/19/21 01/31/24 Rx sugar diagnostic) rosuvastatin 5 mg tablet 5 mg PO QAM #90 tabs 08/13/21 02/22/24 Rx fluticasone propionate 50 1 spray intranasal DAILY 01/05/22 02/22/24 History mcg/actuation nasal spray,suspension (Allergy Relief (fluticasone)) magnesium oxide 400 mg (241.3 mg 400 mg PO DAILY #90 tabs 08/16/23 02/22/24 Rx magnesium) tablet empagliflozin 10 mg tablet See Rx Instructions .Route 10/11/23 02/22/24 Rx (Jardiance) .COMPLEX #90 tabs metformin 1,000 mg tablet See Rx Instructions .Route 10/11/23 02/22/24 Rx .COMPLEX #180 tabs allopurinol 300 mg tablet See Rx Instructions .Route 11/08/23 02/22/24 Rx .COMPLEX #90 tabs ramipril 10 mg capsule See Rx Instructions .Route 11/20/23 02/22/24 Rx .COMPLEX #90 caps semaglutide 1 mg/dose (4 mg/3 mL) See Rx Instructions .Route 01/12/24 02/22/24 Rx subcutaneous pen injector (Ozempic) .COMPLEX #9 mL omeprazole 40 mg capsule,delayed 40 mg PO DAILY #90 caps 02/12/24 02/22/24 Rx release Allergies Allergy/AdvReac Type Severity Reaction Status Date / Time No Known Allergies Allergy Verified 02/22/24 06:49 Vital Signs Vital Signs - 24 hr 02/22/24 06:52 Temperature 97.6 F Pulse Rate 80 Respiratory Rate 18 Blood Pressure 147/96 H Pulse Oximetry 98 Oxygen Delivery Room Air Exam Const: General: comfortable and no acute distress HENMT: Face/Nose/Sinus: Normal nares present Eyes: General: appearance normal, both eyes and all related structures Neck: Neck: no JVD Resp: Auscultation: clear to auscultation bilaterally Cardio: Rate: regular rate Rhythm: regular rhythm GI: Inspection: non-distended GI Palp: Yes Soft to palpation Skin: General skin exam: normal color Neuro: General: gait normal Speech: normal speech Extrem: General: normal to inspection Psych: Mental Status: mental status grossly normal Assessment and Plan Assessment and plan (1) History of colon polyps: Code(s): Z86.010 - Personal history of colon polyps Status: Acute Assessment and Plan: colonoscopy
--- NOTE | 2024-02-22 07:48 | P.PNAN_ITS ---
Anes - Initial Pre Proc Eval Procedure: Operation Date: 02/22/24 08:00 Proposed Procedures p Colonoscopy - Alan Justin MD Date/Time: 02/22/24 07:48 Surgeon: Alan Justin MD Pre Op Diagnosis: personal hx colonic polyps Patient Data Age: 63 Gender: M Height: 1.57 m Weight: 67.7 kg Last Vital Signs Temp 97.6 F 02/22/24 06:52 Pulse 80 02/22/24 06:52 Resp 18 02/22/24 06:52 BP 147/96 H 02/22/24 06:52 Pulse Ox 98 02/22/24 06:52 O2 Del Method Room Air 02/22/24 06:52 Allergies Allergy/AdvReac Type Severity Reaction Status Date / Time No Known Allergies Allergy Verified 02/22/24 06:49 Home Medications ?Medication ?Instructions ?Recorded ?Confirmed ?Type aspirin 81 mg tablet,delayed 81 mg PO DAILY 01/27/20 02/22/24 History release (Adult Aspirin Regimen) metoprolol succinate 50 mg 50 mg PO QAM 04/13/20 02/22/24 History tablet,extended release 24 hr nitroglycerin 0.4 mg sublingual 0.4 mg sublingual Q5M PRN Chest 12/31/20 02/15/24 History tablet Pain OneTouch Verio test strips (blood #100 ea 07/19/21 01/31/24 Rx sugar diagnostic) rosuvastatin 5 mg tablet 5 mg PO QAM #90 tabs 08/13/21 02/22/24 Rx fluticasone propionate 50 1 spray intranasal DAILY 01/05/22 02/22/24 History mcg/actuation nasal spray,suspension (Allergy Relief (fluticasone)) magnesium oxide 400 mg (241.3 mg 400 mg PO DAILY #90 tabs 08/16/23 02/22/24 Rx magnesium) tablet empagliflozin 10 mg tablet See Rx Instructions .Route 10/11/23 02/22/24 Rx (Jardiance) .COMPLEX #90 tabs metformin 1,000 mg tablet See Rx Instructions .Route 10/11/23 02/22/24 Rx .COMPLEX #180 tabs allopurinol 300 mg tablet See Rx Instructions .Route 11/08/23 02/22/24 Rx .COMPLEX #90 tabs ramipril 10 mg capsule See Rx Instructions .Route 11/20/23 02/22/24 Rx .COMPLEX #90 caps semaglutide 1 mg/dose (4 mg/3 mL) See Rx Instructions .Route 01/12/24 02/22/24 Rx subcutaneous pen injector (Ozempic) .COMPLEX #9 mL omeprazole 40 mg capsule,delayed 40 mg PO DAILY #90 caps 02/12/24 02/22/24 Rx release Laboratory Tests 02/22/24 06:58 POC Capillary Glucose 138 H mg/dl (65-105) Patient hx anesthesia problems: none Family hx anesthesia problems: none Results Review: All pre-operative results and documents have been reviewed as part of the pre- operative evaluation. [facility] Past Medical History Medical History Acute non-ST elevation myocardial infarction (NSTEMI) Coronary artery disease Dorsalgia GERD (gastroesophageal reflux disease) Gout Hernia HTN (hypertension) Hypercalcemia Hypercholesterolemia Hyperkalemia Hypomagnesemia Impingement syndrome of right shoulder Low back pain Non-ST elevation [place] (NSTEMI) Optic neuritis Retinopathy Spinal stenosis Type 2 diabetes mellitus with hyperglycemia, without long-term current use of insulin Surgical History Surgical History H/O hernia repair H/O partial thyroidectomy History of knee surgery Azeb S/P coronary artery stent placement 1 stent to the mid RCA Family History Family History Sibling Diabetes mellitus Family history of alcoholism Mother Dementia Heart disease Sibling Family history of seizure disorder Diabetes mellitus Family history of diabetes mellitus in first degree relative Family history of epilepsy Hypertension Asthma Father Diabetes mellitus Family history of alcoholism Cerebrovascular accident Mother Family history of heart disease in male family member before age 55 Family history of cardiovascular disease Diabetes mellitus Family history of arthritis Acute myocardial infarction Family history of diabetes mellitus in first degree relative Patient's mother is Social History Social History Social History: the patient is and lives with his . 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 The patient has 2 children. 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 the patient no longer smokes cigars Occasionally drinks. code status full code Smoking packs per day: 0 Smoking cigarettes per day: 0.0 Years smoked: 20 Smoking pack-years: 0.00 Smoking status: Never smoker Tobacco type: cigars Second hand tobacco smoke exposure: No Additional smoking assessment comments: 1-2 cigars a year, he quit 2019 Alcohol intake: current Drinks per week: 5 Alcohol use details: moderate Substance use: former Substance use type: marijuana Last use: in his 20's Do You Feel Safe in your Home?: Yes Lack of Transportation: No Lack of Food: Never True Current Housing: I Have Housing Concerned About Future Housing: No Difficulty Paying Gas/Electric Bills: No Difficulty Paying for Meds: No Currently Unemployed: No Education: High School Diploma/GED Difficulty w/ Childcare or Family Care: No Living arrangements: with family Occupation/Education: occupation Gender identity (if verbalized by the patient): Male Spiritual care concerns: No Anes - Eval Final PreProcedure Day of Procedure 02/22/24 07:48 Patient weight: normal Heart: regular rate and rhythm Lungs: clear to auscultation Airway: Mallampati scale class II Neurological: alert and oriented Last oral intake: >/= 8 hours ASA classification: III Emergent: no Anesthetic plan: proceed Anesthesia type and monitoring: general GIVS and standard monitoring Results Review: All pre-operative results and documents have been reviewed as part of the pre- operative evaluation. Informed Consent: The patient's anesthetic plan and its attendant risks and benefits were discussed with the patient/family/POA. Questions were solicited and answers provided to the satisfaction of the patient/family/POA.
[2024-02-22 08:10] VITALS: BP 124/73; PULSE 62; RESP 18; O2SAT 97
[2024-02-22 08:20] VITALS: BP 124/91; PULSE 60; RESP 18; O2SAT 100
[2024-02-22 08:30] VITALS: BP 147/91; PULSE 62; RESP 18; O2SAT 100
== END 2024-02-22 08:43 | disposition home or self-care (01) ==
PROVIDERS: PCP Internal Medicine; Referring Provider Nurse Practitioner; Visit Provider Internal Medicine Gastroenterology
PROC: 0DJD8ZZ Inspection of Lower Intestinal Tract, Via Natural or Artificial Opening Endoscopic (ICD-10-PCS; CPT 45378; principal; 2024-02-22 08:00)
DX: Z12.11 Encounter for screening for malignant neoplasm of colon (principal); D12.3 Benign neoplasm of transverse colon; D12.4 Benign neoplasm of descending colon; D12.5 Benign neoplasm of sigmoid colon; K57.30 Diverticulosis of large intestine without perforation or abscess without bleeding; K64.8 Other hemorrhoids; E11.9 Type 2 diabetes mellitus without complications; I10 Essential (primary) hypertension; I25.10 Atherosclerotic heart disease of native coronary artery without angina pectoris; I25.2 Old myocardial infarction; E78.00 Pure hypercholesterolemia, unspecified; Z95.5 Presence of coronary angioplasty implant and graft; Z79.84 Long term (current) use of oral hypoglycemic drugs; Z79.82 Long term (current) use of aspirin; Z79.85 Long-term (current) use of injectable non-insulin antidiabetic drugs
CPT/HCPCS: 45385; 82948; 88305; J2003; J2704; J7120

== ENCOUNTER 2024-03-28 08:00 | Outpatient (RCR) | payer MEDICARE, OTHER, SELFPAY ==
[2024-02-20 08:05] VITALS: BP_SYST 160
--- NOTE | 2024-02-20 08:55 | OPREHPOC ---
Outpatient Therapy Plan of Care This is a Multidisciplinary Plan of Care that may contain components documented by all disciplines (PT, OT, and ST.) PT Problem 1 PT Problem #1 Knowledge Deficit PT Goal 1 Goal / Goal Update *indep with HEP Target Visit 8 PT Problem 2 PT Problem #2 Pain PT Goal 1 Goal / Goal Update * pain rating of 4/10 at worst Target Visit 8 PT Goal 2 Goal / Goal Update * pt report with sleeping, awaken due to shoulder pain 1x/night Target Visit 8 PT Problem 3 PT Problem #3 Impaired Strength PT Goal 1 Goal / Goal Update * increase scapular-shoulder strength to improve posture/positioning & ability to perform home and recreational activity--fish, golf pt perform prone scapular strengthening exercise with 3# hand wt x 15 reps with arms at side and 90' Target Visit 8 PT Problem 4 PT Problem #4 Impaired Range of Motion PT Goal 1 Goal / Goal Update improve active R shoulder ROM to improve use of arm for home and kitchen tasks: active motion in standing: flexion and abduction 150' Target Visit 8
--- NOTE | 2024-02-20 08:55 | PTOPEVAL1 ---
Assessment and note entered by Yamilka Prieto, PT Evaluation Information Assessment Status Evaluation ICD-10 Condition Codes (PT) Pain in right shoulder M25.511 Other ICD-10 Condition Codes ( M75.101 R rotator cuff tear PT) Onset Nov 2023 Subjective Information chronic issues with R shoulder pain since 2019; increased after long distance driving trip; continued to be active and pain continued saw Dr Lerma-- try to avoid surgery: MRI report: large chronic tear, A-C degenerative changes, partial tear biceps injection on 01-31-24- decreased pain about 1 week R hand dominant; able to do all his usual hobbies and home tasks, but take more breaks and have pain; no longer go to gun shooting range due to shoulder pain had PT in the past--helped some, but shoulder is no worse Activity: retired for past year; active--golfing, fishing, play pool; Reported Pain Level Pain Score Self Report Additional Pain Score Comments pain range in past week: 1-6/10; dull ache increase pain: lift arm over 90', lie on R shoulder short time decrease pain: rest, change position, heat, naproxen no prescription meds report awakening from sleeping 2-3x/night due to shoulder pain Assessment PT Clinical Summary Basim has the diagnosis of R rotator cuff chronic tear. Dr Lerma wants to avoid surgery. Quick DASH rating of 36% limitation in activity level. He is retired and remains active. Decreased lifting overhead, no longer shooting his gun at the range, and requires rest periods due to shoulder pain. Shoulder pain is awakening him from sleeping. With the evaluation: his R shoulder active flexion and abduction motions are decreased strength due to pain, and decreased active ROM; poor standing posture of shoulders and trunk; decreased cervical rotation to R with neck and shoulder pain; Skilled PT services are indicated for modalities to decrease pain; increase scapular-thoracic strength to improve stability to shoulder with education for Home exercises, pain control and posture. Plan of Care Interventions Electrical Stimulation,Hot Pack/Cold Pack,Manual Therapy,Neuro Re-education,Patient Education,Therapeutic Activities,Therapeutic Exercise,Ultrasound,Other Other Interventions taping PT Services Indicated Yes Treatment Frequency and 1-2x/wk for 8 visits Duration These treatments will address the objective and functional deficits as defined above. The patient will be advanced safely and appropriately in order for the patient to progress towards his/her prior level of function. Additional exercises will be introduced and as well as a comprehensive home exercise program upon discharge, if needed, ?to ensure carryover of functional gains achieved in the clinic. This treatment plan has been reviewed and agreement upon by the patient.
--- NOTE | 2024-03-28 08:44 | PTOPDC ---
Assessment and note entered by Yamilka Prieto, PT Assessment Status Discharge ICD-10 Condition Codes (PT) Pain in right shoulder M25.511 Other ICD-10 Condition Codes ( M75.101 R rotator cuff tear PT) Onset Nov 2023 Subjective Information feel like shoulder is a little better, but still hurts; have been doing the exercises; have some neck pain with rotation to the R; do not have an appointment with the dr- to call if need something Reported Pain Level Pain Score Self Report Additional Pain Score Comments pain range in the past week: 2-8; with sleeping awaken from pain 2x/night decrease pain: rest, heat pad, over the counter meds increase pain: using arm overhead, more activity, shoveling snow and ice; Assessment PT Clinical Summary Basim has received 8 PT sessions. Compared to the initial eval: pain from -08/20 to 2-10/20-- has been shoveling snow/ice and doing more activity; self assessment with Quick Dash from 36 to 27% limitation in activity level; sleeping awaken 2-3x to 2x/night due to shoulder pain; increase R shoulder flexion and abduction motions and increase strength all motions; pain in shoulder with cervical rotation to R and side bend to L motions; education completed for HEP and posture. Active R shoulder: flexion 150' and abduction 140' The goals were partially achieved. Discharge PT. He is to continue with his home exercises and activity as tolerated, monitoring his pain level. Plan of Care PT Services Indicated No
== END 2024-03-28 11:08 | disposition home or self-care (01) ==
LOC: ANHPT 08:00
PROVIDERS: PCP Internal Medicine; Visit Provider Orthopaedic Surgery
DX: M75.101 Unspecified rotator cuff tear or rupture of right shoulder, not specified as traumatic (principal)
CPT/HCPCS: 97014; 97110; 97140; 97161; 97530; G0283

== ENCOUNTER 2024-04-19 07:09 | Outpatient (CLI) | payer MEDICARE, OTHER, SELFPAY ==
--- OUTSIDE RECORDS SUMMARY | 2024-04-19 07:13 | XMS_ITS | Referral Summary ---
Author Organization [facility] Address [address] [place] [address] Care Team Providers Care Inserter Promotional Item Name Role Phone Brown Gutierrez DO Primary Care Provider [phone] Source Comments [facility],non-owned Affiliates and Associated Physician Practices is amultiple site organization consisting of ambulatory clinics and hospital sitesin [place], [place], [place] and [place]. This disclosure is being madepursuant to the Care Everywhere program and may not contain all information available regarding this patient. Last updated 17.[facility] Immunizations Name Administration Dates Next Due INFLUENZA VACCINE, QUADR. (F LUZONE; FLULAVAL; FLUARIX; AFLURIA QUADRIVALENT; 6MO+), 0.5 ML (IIV4) 02/02/2020 Social History Tobacco Use Types Packs/Day Years Used Date Smoking Tobacco: Never Assessed Sex and Gender Information Value Date Recorded Sex Assigned at Not on file Gender Identity Not on file Sexual Orientation Not on file Plan of Treatment Not on file Care Teams Inserter Promotional Item Relationship Specialty Start Date End Date Brown Gutierrez DO [address] [place], [place] [id number] PCP - General 02/15/21
--- OUTSIDE RECORDS SUMMARY | 2024-04-19 07:13 | XMS_ITS | Clinical Summary ---
Author Organization [facility] Address [address] Attn: Epic Prelude ADT [place] GULEANDRO [id number] Care Team Providers Care Dry Janitor Name Role Phone Unavailable Primary Care Provider Unavailabl e Social History Tobacco Use Types Packs/Day Years Used Date Smoking Tobacco: Never Assessed Sex and Gender Information Value Date Recorded Sex Assigned at Not on file Legal Sex Male 4:01 AM [employer] Gender Identity Not on file Sexual Orientation Not on file Plan of Treatment Health Maintenance Due Date Last Done Comments DTAP/TDAP/TD VACCINES (1 - Tdap) 1977 COLORECTAL SCREENING 09/26/2003 Colorectal Cancer Screening 09/26/2003 FIT-DNA Q 3 years 09/26/2003 FIT/FOBT Q 1 year 09/26/2003 04/27/2000 Flex Sig/CT Colonography Q 5 years 09/26/2003 PNEUMOCOCCAL VACCINE 65+ YEARS (1 of 1 - PCV) 09/26/19 09 ZOSTER VACCINE (1 of 2) 2008 INFLUENZA VACCINE (#1) 2023 RSV VACCINE (60+ or ) (1 - 1-dose 75+ series) 2033
--- OUTSIDE RECORDS SUMMARY | 2024-04-19 07:13 | XMS_ITS | Clinical Summary ---
Author Organization [facility] [employer] Address [address] [place] [address] Care Team Providers Care Fine Grade Operator Name Role Phone Brown Gutierrez DO Primary Care Provider [phone] Source Comments [facility] [employer]non-owned Affiliates and Associated Physician Practices is amultiple site organization consisting of ambulatory clinics and hospital sitesin [place], [place], [place] and [place]. This disclosure is being madepursuant to the Care Everywhere program and may not contain all information available regarding this patient. Last updated 17.[facility] [employer] Immunizations Name Administration Dates Next Due INFLUENZA [...] Health Maintenance Due Date Last Done Comments COLOGUARD (AGES 45-75) - COL ON CA SCREENING 1958 COLON MONITORING 1958 COLONOSCOPY - COLON CA SCREENING 1958 CT COLONOGRAPHY - COLON CA SCREENING 1958 Colorectal Cancer Screening 1958 FIT - COLON CA SCREENING 1958 FLEX SIG - COLON CA SCREENING 1958 LIPID TESTING 1958 MEDICARE AWV 12 MONTHS 1958 HIV SCREENING 1973 HEPATITIS C SCREENING 09/20/1976 DTAP/TDAP/TD VACCINES (1 - Tdap) 1977 PNEUMOCOCCAL VACCINE 50+ (1 of 1 - PCV) 2008 ZOSTER VACCINE (1 of 2) 2008 COVID-19 VACCINE (2023-2 5 season) 2023 INFLUENZA VACCINE (#1) 2023 02/02/2020 DEPRESSION SCREENING 03/13/2024 Respiratory Syncytial Virus (RSV) Vaccine Pt: or over 60 yrs (1 - 1-dose 75+ series) 2033 HEPATITIS B VACCINE Aged Out No longe r eligible based on patient's age to complete this topic HIB VACCINE Aged Out No longer eligi ble based on patient's age to complete this topic HPV VACCINE Aged Out No longer eligi ble based on patient's age to complete this topic MENINGOCOCCAL (Group B) VACCINE Aged Out No longer eligible based on patient's age to complete this topic MENINGOCOCCAL VACCINE Aged Out No mal mallory eligible based on patient's age to complete this topic Care Teams Fine Grade Operator Relationship Specialty Start Date End Date Brown Gutierrez DO [address] [place] [address] PCP - General 02/15/21
--- OUTSIDE RECORDS SUMMARY | 2024-04-19 07:13 | XMS_ITS | Clinical Summary ---
Author Organization [facility] Address [address] [place] [phone] Phone Care Team Providers Care Barrel Straightener Name Role Phone Brown Gutierrez Primary Care Provider [phone] Allergies No known active allergies Medications Medication Sig Dispensed Refills Start Date End Date Status acetaZOLAMIDE (DIAMOX) 500 MG 12 hr capsule 04/26/2021 Active allopurinol (ZYLOPRIM) 300 MG tablet Take 300 mg by mouth 1 (one) time each day 04/20/2021 Active Aspirin Low Dose 81 MG EC tablet Take 81 mg by mouth 1 (one) time each day 04/22/2021 Active gabapentin (NEURONTIN) 300 MG capsule 05/13/2021 Active glimepiride (AMARYL) 4 MG tablet Take 4 mg by mouth 2 (two) times a day with meals 05/03/2021 Active True Metrix Blood Glucose Test test strip TEST DAILY DIRECTED 03/30/2021 Active magnesium oxide (MAG-OX) 400 (241.3 Mg) MG tablet 400 MG BY MOUTH DAILY 05/03/2021 Active metFORMIN (GLUCOPHAGE) 1000 MG tablet Take 1,000 mg by mouth 2 (two) times a day with meals 05/03/2021 Active metoprolol succinate XL (TOPROL-XL) 50 MG 24 hr tablet 04/12/2021 Active omeprazole (PriLOSEC) [address] capsule Take 40 mg by mouth 1 (one) time each day 04/22/2021 Active rosuvastatin (CRESTOR) 5 MG tablet Take 5 mg by mouth 1 (one) time each day in the morning 05/03/2021 Active Ozempic, 1 MG/DOSE, 4 MG/3ML solution pen-injector ADMINISTER 1 MG UNDER THE SKIN WEEKLY FOR 12 WEEKS 05/10/2021 Active nitroglycerin (NITROSTAT) 0.[address] 0.4 mg under the tongue 06/23/2020 Active Jardiance 10 MG tablet Take 1 tablet by mouth 1 (one) time each day 10/22/2021 Active quinapril (ACCUPRIL) 20 MG tablet Take 20 mg by mouth 1 (one) time each day 10/28/2021 Active Active Problems Problem Noted Date Diagnosed Date Benign intracranial hypertension 07/02/2021 Blood urate abnormal 05/24/2021 Diabetes mellitus 05/24/2021 Gastroesophageal reflux disease 05/24/2021 Hyperlipidemia 05/24/2021 Hypertension 05/24/2021 Myocardial infarction 05/24/2021 Papilledema 03/04/2021 Stented coronary artery 03/19/2020 Immunizations Name Administration Dates Next Due Influenza, Injectable, Quadrivalent, Preservativ e Free 02/02/2020 Influenza, Unspecified 01/08/2021 Moderna Sars-cov-2 Vaccination 05/19/2020,2020 Family History Medical History Relation Comments Diabetes mellitus Father Stroke Father Dementia Mother Diabetes mellitus Mother Heart disease Mother Relation Status Comments Father Mother Social History Tobacco Use Types Packs/Day Years Used Date Smoking Tobacco: Former Cigars Q uit: 2020 Smokeless Tobacco: Never Alcohol Use Standard Drinks/Week Comments Yes 0 (1 standard drink = 0.6 oz pur e alcohol) occassional use Sex and Gender Information Value Date Recorded Sex Assigned at Not on file Gender Identity Not on file Sexual Orientation Not on file Last Filed Vital Signs Vital Sign Reading Time Taken Comments Blood Pressure 128/72 11/08/2021 8:36 AM CDT Pulse - - Temperature 35.8 C (96.4 F) 11/08/2021 8:36 AM CDT Respiratory Rate 18 11/08/2021 8:36 AM CDT Oxygen Saturation - - Inhaled Oxygen Concentration - - Weight 64.4 kg (142 lb) 11/08/2021 8:36 AM CDT Height 157.5 cm (5' 2 ) 11/08/2021 8:36 AM CDT Body Mass Index 25.97 11/08/2021 8:36 AM CDT Plan of Treatment Health Maintenance Due Date Last Done Comments Pneumococcal PPSV23/PCV13 65 + Years / High and Highest Risk (1 of 4 - PCV) 1964 Diabetic Foot Exam 1968 Ophthalmology Exam 11/05/2022 11/05/2021, 0 07/02/2021, 04/23/2021 COVID-19 Vaccine (3 - season) 11/12/202311/2020, 04/21/2020 Influenza Vaccine (#1) 2023 01/08/2021, 2019 Care Teams Barrel Straightener Relationship Specialty Start Date End Date Brown Gutierrez DO [address] [address] PCP - General Internal Medicine 03/30/21
--- OUTSIDE RECORDS SUMMARY | 2024-04-19 07:13 | XMS_ITS | Clinical Summary ---
Author Organization [facility] [address] Address [address] [place] [address] Care Team Providers Care Paint Roller Covers Supervisor Name Role Phone Brown Gutierrez MD Primary Care Provider [phone] Geronimo Ji MD Unavailable Allergies No known active allergies Medications magnesium oxide (MAG-OX) 400 mg (241.3 mg elemental magnesium) tabletIndicatio ns:hypomagnesem ia Take 1 tablet (400 mg total) by mouth 2 (two) times a day Active omeprazole (PriLOSEC) 40 mg capsule Take 1 capsule (40 mg total) by mouth daily Active fluticasone propionate (FLONASE) 50 mcg/actuation nasal spray Administer 1 spray into each nostril daily Active allopurinoL (ZYLOPRIM) 300 mg tablet Take 1 tablet (300 mg total) by mouth daily Active semaglutide (Ozempic) 1 mg/dose (2 mg/1.5 mL) pen injector Inject 1 mg under the skin every 7 days Active metFORMIN (GLUCOPHAGE) 1,000 mg tablet 1 tablet (1,000 mg total) 2 (two) times a day with meals 1 Active empagliflozin (JARDIANCE) 10 mg tabletIndicatio ns:type 2 diabetes mellitus 1 tablet (10 mg total) daily Active ramipriL (ALTACE) 10 mg capsule Take 1 capsule (10 mg total) by mouth daily 2 Active nitroglycerin (NITROSTAT) 0.4 mg SL tabletIndicatio ns:acute myocardial infarction Place 1 tablet (0.4 mg total) under the tongue every 5 (five) minutes as needed for chest pain 90 tablet 3 Active metoprolol XL (TOPROL-XL) 50 mg extended release tablet TAKE 1 TABLET(50 MG) BY MOUTH DAILY 90 tablet 3 4 Active rosuvastatin (CRESTOR) 5 mg tablet TAKE 1 TABLET(5 MG) BY MOUTH DAILY 30 tablet 11 4 Active aspirin 81 mg enteric coated tablet TAKE 1 TABLET BY MOUTH EVERY DAY 30 tablet 11 4 Active Active Problems Problem Noted Date Diagnosed Date Pseudotumor cerebri syndrome 07/02/2021 Papilledema 03/04/2021 Presence of stent in coronary artery 03/19/2020 Abnormal blood level of uric acid Diabetes mellitus GERD (gastroesophageal reflux disease) Hyperlipidemia Hypertension NSTEMI (non-ST elevated myocardial infarction) ( CMS/HCC) Encounters Date Type Department Care Team Description 02/13/2024 8:15 AM QC SCIENTIST Office Visit [facility] [address] [facility] [address] [place] [address] Basim Holt MD Presence of stent in coronary artery (Primary Dx); NSTEMI (non-ST elevated myocardial infarction) (CMS/HCC) ([facility]); Lipid screening from Last 3 Months Immunizations Name Administration Dates Next Due Influenza, Unspecified 01/08/2021 Surgical History Surgery Date Site/Laterality Comments THYROIDECTOMY, PARTIAL benign nodules KNEE SURGERY Right torn meniscus UMBILICAL HERNIA REPAIR CORONARY ANGIOPLASTY 01/21/2020 Stent to the left circumflex Medical History Medical History Date Comments Diabetes mellitus (HCC) Hypertension Hyperlipidemia Abnormal blood level of uric acid Thyroid disease GERD (gastroesophageal reflux disease) Coronary artery disease 01/19/2020 ME (myocardial infarction) ([facility]) Spinal stenosis Gout Family History Medical History Relation Name Comments Diabetes Brother 1 Epilepsy Brother 1 Diabetes Brother 2 Heart disease Father Stroke Father Heart disease Mother Heart disease Mother's Brother Relation Name Status Comments Brother 1 Brother 2 Father Mother Mother's Brother Social History Tobacco Use Types Packs/Day Years Used Date Smoking Tobacco: Former Cigars Q uit: 01/21/2020 Smokeless Tobacco: Never Tobacco Cessation:Counseling Given: Not Answered Alcohol Use Standard Drinks/Week Comments Yes 14 (1 standard drink = 0.6 oz pu re alcohol) AUDIT-C Answer Date Recorded Q1: How often do you have a drink containing alc ohol? 2-4 times a month 03/04/2021 Q2: How many drinks containi ng alcohol do you have on a typical day when you are drinking? 3 or 4 03/04/2021 Q3: How often do you have si x or more drinks on one occasion? 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 Not on file Not on file Not on file Obstetrics History Last Filed Vital Signs Vital Sign Reading Time Taken Comments Blood Pressure 170/80 02/13/2024 8:19 AM QC SCIENTIST Pulse 80 02/13/2024 8:19 AM QC SCIENTIST Temperature 36.4 C (97.5 F) 03/05/2021 7:40 AM QC SCIENTIST Respiratory Rate 18 03/05/2021 7:40 AM QC SCIENTIST Oxygen Saturation 96% 02/13/2024 8:19 AM QC SCIENTIST Inhaled Oxygen Concentration - - Weight 69.6 kg (153 lb 6.4 oz) 02/13/2024 8:19 A M QC SCIENTIST Height 157.5 cm (5' 2 ) 02/13/2024 8:19 AM QC SCIENTIST Body Mass Index 28.06 02/13/2024 8:19 AM QC SCIENTIST Plan of Treatment Health Maintenance Due Date Last Done Comments Albumin Creatinine Ratio, Urine 1958 Colon Cancer Screening-Colonoscopy 1958 Depression Screening 1958 Hepatitis C Screening 1958 Foot Exam 1958 Pneumococcal vaccine 65+ (1 of 2 - PCV) 1964 DTaP/Tdap/Td Vaccine (1 - Tdap) 1969 Hepatitis B Screening 1976 Zoster Vaccine (1 of 2) 2008 Hemoglobin A1C 07/20/2020 01/21/2020 eGFR 03/04/2022 03/04/2021, 1205/2020, 03/03/2021, Additional history exists Fall Risk Assessment 03/05/2022 03/05/2021 Dilated Eye Exam 04/23/2022 04/23/2021 Prostate Cancer Screening-PSA 03/05/2023 03/05/2021 Abdominal Aortic Aneurysm (A AA) Screen 09/26/2023 03/04/2021 Well Visit 65+ 09/26/2023 Influenza Vaccine (#1) 2023 01/08/2021, 2019 Lipid Panel 02/12/2025 02/13/2024, 01/12, 01/20/2022, Additional history exists Medical Devices Implanted Type Area Otc Clerk Device Identifier Shelf Expiration Date Model / Serial / Lot [place] [employer] [id number] Synergy 3mm 38mm 144cm Radiopaque 1 Access Port Inflation Lumen - [id number] - [id number] Implanted:Qty: 1 on 01/21/2020 by Geronimo Ji MD at [facility] Stent [employer] [place] [employer] 10/16/2021 [id number] / [id number] / [id number] Procedures Procedure Name Priority Date/Time Associated Diagnosis Comments POCT LIPID PANEL Routine 02/13/2024 4:52 PM QC SCIENTIST Lipid screening PSA SCREEN Routine 03/05/2021 5:09 AM QC SCIENTIST EGFR STAT 03/04/2021 4:[address] CHEST ABDOMEN PELVIS W CONTRAST IP Routine 03/04/2021 3:23 PM QC SCIENTIST HEMOGLOBIN A1C STAT 01/21/2020 3:20 PM QC SCIENTIST from Last 3 Months or Most Recently Relevant to Health Maintenance Results * POCT lipid panel (02/13/2024 4:52 PM QC SCIENTIST) Cholesterol, POC 140 mg/dL Comment:GLU = 166 HDL, POC 57 mg/dL Triglycerides, POC 87 mg/dL LDL Cholesterol POC 66 mg/dL Chol/HDL Ratio, POC 1.2 Non-HDL Cholesterol, POC 83 mg/dL Cholesterol Total, POC 140 mg/dL Capillary blood 02/13/2024 4 :52 PM QC SCIENTIST us Basim Holt MD POINT OF CARE TEST ORDER TRUNG Final Result * PSA screen (03/05/2021 5:09 AM QC SCIENTIST) PSA-Total 1.29 <=5.40 ng/mL [facility] Comment: Interpretive Data AGE SEX REFERENCE INTERVAL 0 minutes-150 years Female None 0 minutes-49 years Male None 50-59 years Male 0-3.90 60-69 years Male 0-5.40 70-79 years Male 0-6.20 80-150 years Male 0-6.20 Current interpretive data last revised 2017. Blood 03/05/2021 5:09 AM QC SCIENTIST 03/05/2021 6:29 AM QC SCIENTIST Sweta Salvador MD PhD LAB BLOOD ORDERABLES F inal Result [facility] Department [place] [address] * eGFR (03/04/2021 4:36 PM QC SCIENTIST) eGFR >90 90 - 130 mL/min/1. 73 m2 [facility] Comment: Interpretive Data Reference Interval Normal >/= 90 mL/min/1.73m2 Mildly decreased* 60 - 89 mL/min/1.73m2 Mildly to moderately decreased 45 - 59 mL/min/1.73m2 Moderately to severely decreased 30 - 44 mL/min/1.73m2 Severely decreased 15 - 29 mL/min/1.73m2 Kidney Failure < 15 mL/min/1.73m2 *Relative to young adult level Estimated glomerular filtration rate is determined by the 2020 CKD-EPI equation recommended by the National Kidney Foundation (A Unifying Approach to GFR Estimation: Recommendations of the NKF-ASK Task Force on Reassessing the Inclusion of Race in Diagnosing Kidney Disease, JASN 2020). The CKD-EPI equation should not be used for patients with unstable renal function and has not been validated in children and those over 70. Current interpretive data was last reviewed 2021. Blood 03/04/2021 4:36 PM QC SCIENTIST 03/04/2021 4:54 PM QC SCIENTIST us Sweta Salvador MD PhD LAB BLOOD ORDERABLES F inal Result [facility] Department [place] [address] * CT Chest Abdomen Pelvis W Contrast (03/04/2021 3:23 PM QC SCIENTIST) Anatomical Region Laterality Modality Body N/A Computed Tomogra phy 03/04/2021 4:18 PM QC SCIENTIST Impressions 03/04/2021 11:38 PM QC SCIENTIST 1. Subtle 2.2 cm possible lesion in the hepatic dome, could be benign etiology such as focal nodular hyperplasia but incompletely characterize. Further evaluation with liver MR is recommended. 2. Small hyperdense focus in the inferior bladder, could be extension of hypertrophied prostate but correlate with urinalysis and PSA, and attention on follow-up imaging is recommended. 3. A 4 mm right middle subpleural lung nodule. If patient is at high risk of developing lung cancer, consider follow-up with chest CT in 12 months. No intrathoracic lymphadenopathy. 4. Few scattered subcutaneous air in the mid lumbar paraspinal region, correlate with physical exam for the concern of infection. 5. Decreased enhancement along left internal jugular vein, likely due to contrast mixing artifact, but consider Doppler US if there is clinical concern for thrombosis. 6. Left thyroid nodules measuring up to 1.7 cm, nonemergent thyroid ultrasound is recommended. Electronically signed by: Jose Levine MD Narrative 03/04/2021 11:38 PM QC SCIENTIST EXAMINATION: Computed tomography of the chest, abdomen and pelvis with intravenous contrast HISTORY: 60-year-old male with history of diabetes, coronary artery disease presented with worsening left blurred vision TECHNIQUE: Transaxial computed tomographic images of the chest, abdomen and pelvis were obtained with intravenous contrast according to the standard protocol after the uneventful administration of 95 mL Opti-Ray 350 intravenous contrast. COMPARISON: None. FINDINGS: Chest: Mucous secretion in the proximal trachea. Central airways are otherwise patent. No focal consolidation, pleural effusion or pneumothorax. There is 4 mm subpleural nodule in the right middle lobe (table position -214.7). No other suspicious pulmonary nodule or mass. Right thyroid is not seen, correlate with prior surgical history. Multiple hypodense nodules in the left thyroid with the largest measure up to 1.7 cm. No supraclavicular, mediastinal, hilar or axillary lymphadenopathy. Esophagus is unremarkable. Atherosclerotic changes are seen in the partially seen proximal right common carotid artery. Decreased attenuation of left internal jugular vein could be due to contrast mixing artifact, incompletely characterized. Thoracic aorta is normal in size and with mild atherosclerotic changes. Pulmonary artery is normal in size. The heart is mildly enlarged without significant pericardial effusion. Coronary artery calcifications are present. Abdomen/Pelvis: There is suggestion of subtle 2.2 cm lesion in hepatic dome. No intrahepatic or extrahepatic bile duct dilation. Gallbladder, pancreas, spleen, adrenal glands are normal. Bilateral kidneys are enhancing symmetrically, without suspicious focal lesion or hydronephrosis. There is high density fluid in the bladder, could be from recent MR contrast. There is a more focal hyperdense focus at the inferior aspect(series 2 image 264). Prostate gland is enlarged. The stomach is unremarkable. Small and large bowel are not dilated or obstructed. Scattered colonic diverticulosis without evidence of acute diverticulitis. Appendix is normal. No free intraperitoneal air, free fluid or fluid collection. No abdominopelvic lymphadenopathy. Subcentimeter retroperitoneal and external iliac lymph nodes are nonspecific. Note is made of retroaortic course of left renal vein. Abdominal aorta is normal in size with scattered atherosclerotic calcifications along the bilateral iliac and partially visualized femoral arteries. Atherosclerotic calcification is also seen along the superior mesenteric artery. Fat-containing bilateral inguinal hernia. There are several scattered air foci in the paraspinal subcutaneous tissue at mid lumbar level (series 2 image 184), without associated fluid collection. No acute osseous finding. There is somewhat linear sclerotic focus in the right femoral head without evidence of articular surface extension, could be degenerative in etiology. Additional small sclerotic focus in the right acetabulum favors benign such as bone island. Multilevel degenerative changes are seen throughout the lower cervical, thoracic and lumbar spine with Schmorl's nodes most pronounced at L4/L5. Degenerative change in the bilateral shoulders and bilateral hips. Procedure Note Jose Levine MD - 03/04/2021 EXAMINATION: Computed tomography of the chest, abdomen and pelvis with intravenous contrast HISTORY: 60-year-old male with history of diabetes, coronary artery disease presented with worsening left blurred vision TECHNIQUE: Transaxial computed tomographic images of the chest, abdomen and pelvis were obtained with intravenous contrast according to the standard protocol after the uneventful administration of 95 mL Opti-Ray 350 intravenous contrast. COMPARISON: None. FINDINGS: Chest: Mucous secretion in the proximal trachea. Central airways are otherwise patent. No focal consolidation, pleural effusion or pneumothorax. There is 4 mm subpleural nodule in the right middle lobe (table position -214.7). No other suspicious pulmonary nodule or mass. Right thyroid is not seen, correlate with prior surgical history. Multiple hypodense nodules in the left thyroid with the largest measure up to 1.7 cm. No supraclavicular, mediastinal, hilar or axillary lymphadenopathy. Esophagus is unremarkable. Atherosclerotic changes are seen in the partially seen proximal right common carotid artery. Decreased attenuation of left internal jugular vein could be due to contrast mixing artifact, incompletely characterized. Thoracic aorta is normal in size and with mild atherosclerotic changes. Pulmonary artery is normal in size. The heart is mildly enlarged without significant pericardial effusion. Coronary artery calcifications are present. Abdomen/Pelvis: There is suggestion of subtle 2.2 cm lesion in hepatic dome. No intrahepatic or extrahepatic bile duct dilation. Gallbladder, pancreas, spleen, adrenal glands are normal. Bilateral kidneys are enhancing symmetrically, without suspicious focal lesion or hydronephrosis. There is high density fluid in the bladder, could be from recent MR contrast. There is a more focal hyperdense focus at the inferior aspect(series 2 image 264). Prostate gland is enlarged. The stomach is unremarkable. Small and large bowel are not dilated or obstructed. Scattered colonic diverticulosis without evidence of acute diverticulitis. Appendix is normal. No free intraperitoneal air, free fluid or fluid collection. No abdominopelvic lymphadenopathy. Subcentimeter retroperitoneal and external iliac lymph nodes are nonspecific. Note is made of retroaortic course of left renal vein. Abdominal aorta is normal in size with scattered atherosclerotic calcifications along the bilateral iliac and partially visualized femoral arteries. Atherosclerotic calcification is also seen along the superior mesenteric artery. Fat-containing bilateral inguinal hernia. There are several scattered air foci in the paraspinal subcutaneous tissue at mid lumbar level (series 2 image 184), without associated fluid collection. No acute osseous finding. There is somewhat linear sclerotic focus in the right femoral head without evidence of articular surface extension, could be degenerative in etiology. Additional small sclerotic focus in the right acetabulum favors benign such as bone island. Multilevel degenerative changes are seen throughout the lower cervical, thoracic and lumbar spine with Schmorl's nodes most pronounced at L4/L5. Degenerative change in the bilateral shoulders and bilateral hips. IMPRESSION: 1. Subtle 2.2 cm possible lesion in the hepatic dome, could be benign etiology such as focal nodular hyperplasia but incompletely characterize. Further evaluation with liver MR is recommended. 2. Small hyperdense focus in the inferior bladder, could be extension of hypertrophied prostate but correlate with urinalysis and PSA, and attention on follow-up imaging is recommended. 3. A 4 mm right middle subpleural lung nodule. If patient is at high risk of developing lung cancer, consider follow-up with chest CT in 12 months. No intrathoracic lymphadenopathy. 4. Few scattered subcutaneous air in the mid lumbar paraspinal region, correlate with physical exam for the concern of infection. 5. Decreased enhancement along left internal jugular vein, likely due to contrast mixing artifact, but consider Doppler US if there is clinical concern for thrombosis. 6. Left thyroid nodules measuring up to 1.7 cm, nonemergent thyroid ultrasound is recommended. Electronically signed by: Jose Levine MD Sweta Salvador MD PhD IMG CT PROCEDURES Janeen l Result * (ABNORMAL) Hemoglobin A1c (01/21/2020 3:20 PM QC SCIENTIST) Hgb A1C 8.8(H) 4.0 - 5.6 % [facility] Estimated Average Glucose 206 mg/dL [facility] Comment: The ADA recommends reporting an estimated Average Glucose (eAG) with all Hemoglobin A1c results using the equation derived from a study of 507 normal and diabetic adults. Minority populations were underrepresented and children were not included. (Diabetes Care 31:2441-0786, 2008). The eAG is not equivalent to a fasting glucose. Blood specimen (specimen) 01/21/2020 3:20 PM QC SCIENTIST 01/21/2020 3:24 PM QC SCIENTIST us Molly Khan MD LAB BLOOD ORDERABLES Final Result [facility] [address] Department [place] [address] from Last 3 Months or Most Recently Relevant to Health Maintenance Insurance [facility] Advance Directives For more information, please contact: [phone] * Full Code (Latest Code Status on File) Date Activated Date Inactivated Comments 03/04/2021 9:56 AM 03/05/2021 5:22 PM * Full Code Date Activated Date Inactivated Comments 01/21/2020 10:42 AM 01/22/2020 3:09 AM Care Teams Paint Roller Covers Supervisor Relationship Specialty Start Date End Date Brown Gutierrez MD [address] [place], [place] [id number] PCP - General Internal Medicine 01/20/20 Geronimo Ji MD [address] [place] [address] Referring Physician Cardiovascular Disease 01/21/20
--- OUTSIDE RECORDS SUMMARY | 2024-04-19 07:13 | XMS_ITS | Encounter Summary ---
Author Organization [facility] Address [address] [place] [address] Care Team Providers Care Crop Pest Control Specialist Name Role Phone Unavailable Primary Care Provider Unavailabl e Encounter Details Date Type Department Care Team (Late st Contact Info) Description 02/08/1999 Outpatient Historical [facility] Anthony Miller MD Social History Tobacco Use Types Packs/Day Years Used Date Smoking Tobacco: Never Assessed Sex and Gender Information Value Date Recorded Sex Assigned at Not on file Legal Sex Male 4:[address] SUPERVISOR Gender Identity Not on file Sexual Orientation Not on file documented as of this encounter Plan of Treatment Not on file documented as of this encounter Visit Diagnoses Not on filedocumented in this encounter
--- OUTSIDE RECORDS SUMMARY | 2024-04-19 07:13 | XMS_ITS | Referral Summary ---
Author Organization [facility] [address] Address [address] [place] [address] Care Team Providers Care Sales Marketing Name Role Phone Brown Gutierrez MD Primary Care Provider [phone]- [phone] Geronimo Ji MD Unavailable Encounters Date Type Department Care Team Description 02/13/2024 8:15 AM MACHINE EGG WASHER Office Visit [facility] [address] [place] [address] Basim Holt MD Presence of stent in coronary artery (Primary Dx); NSTEMI (non-ST elevated myocardial infarction) (CMS/HCC) (HCC); Lipid screening from Last 3 Months Allergies No known active allergies Medications magnesium [...] Hypertension NSTEMI (non-ST elevated myocardial infarction) ( [facility]) Immunizations Name Administration Dates Next Due Influenza, Unspecified 01/08/2021 Social History Tobacco Use Types Packs/Day Years [...] on file Legal Sex Male 7:59 AM MACHINE EGG WASHER Gender Identity Not on file Sexual Orientation Not on file 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 Not on file Not on file Last Filed Vital Signs Vital Sign Reading Time Taken Comments Blood Pressure 170/80 02/13/2024 8:19 AM MACHINE EGG WASHER Pulse 80 02/13/2024 8:19 AM MACHINE EGG WASHER Temperature 36.4 C (97.5 F) 03/05/2021 7:40 AM MACHINE EGG WASHER Respiratory Rate 18 03/05/2021 7:40 AM MACHINE EGG WASHER Oxygen Saturation 96% 02/13/2024 8:19 AM MACHINE EGG WASHER Inhaled Oxygen Concentration - - Weight 69.6 kg (153 lb 6.4 oz) 02/13/2024 8:19 A M MACHINE EGG WASHER Height 157.5 cm (5' 2 ) 02/13/2024 8:19 AM MACHINE EGG WASHER Body Mass Index 28.06 02/13/2024 8:19 AM MACHINE EGG WASHER Plan of Treatment Not on file Medical Devices Implanted Type Area Rubber Covering Machine Operator Device Identifier Shelf Expiration Date Model / Serial / Lot Marqui Arsalan [id number] Synergy 3mm 38mm 144cm Radiopaque 1 Access Port Inflation Lumen - [id number] - [id number] Implanted:Qty: 1 on 01/21/2020 by Geronimo Ji MD at [facility] [employer] 10/16/2021 [id number] / [id number] / [id number] Procedures Procedure Name Priority Date/Time Associated Diagnosis Comments POCT LIPID PANEL Routine 02/13/2024 4:52 PM MACHINE EGG WASHER Lipid screening PSA SCREEN Routine 03/05/2021 5:09 AM MACHINE EGG WASHER EGFR STAT 03/04/2021 4:[address] CHEST ABDOMEN PELVIS W CONTRAST IP Routine 03/04/2021 3:23 PM MACHINE EGG WASHER HEMOGLOBIN A1C STAT 01/21/2020 3:20 PM MACHINE EGG WASHER from Last 3 Months or Most Recently Relevant to Health Maintenance Results * POCT lipid panel (02/13/2024 4:52 PM MACHINE EGG WASHER) Cholesterol, POC 140 mg/dL Comment:GLU = 166 HDL, POC 57 mg/dL Triglycerides, POC 87 mg/dL LDL Cholesterol POC 66 mg/dL Chol/HDL Ratio, POC 1.2 Non-HDL Cholesterol, POC 83 mg/dL Cholesterol Total, POC 140 mg/dL Capillary blood 02/13/2024 4 :52 PM MACHINE EGG WASHER us Basim Holt MD POINT OF CARE TEST ORDER TRUNG Final Result * PSA screen (03/05/2021 5:09 AM MACHINE EGG WASHER) PSA-Total 1.29 <=5.40 ng/mL [facility] Comment: Interpretive Data AGE SEX REFERENCE INTERVAL 0 minutes-150 years Female None 0 minutes-49 years Male None 50-59 years Male 0-3.90 60-69 years Male 0-5.40 70-79 years Male 0-6.20 80-150 years Male 0-6.20 Current interpretive data last revised 2017. Blood 03/05/2021 5:09 AM MACHINE EGG WASHER 03/05/2021 6:29 AM MACHINE EGG WASHER us Sweta Salvador MD PhD LAB BLOOD ORDERABLES F inal Result [facility] Department [place] [address] * eGFR (03/04/2021 4:36 PM MACHINE EGG WASHER) eGFR >90 90 - 130 mL/min/1. 73 m2 [facility] Comment: Interpretive Data Reference Interval [...] last reviewed 2021. Blood 03/04/2021 4:36 PM MACHINE EGG WASHER 03/04/2021 4:54 PM MACHINE EGG WASHER us Sweta Salvador MD PhD LAB BLOOD ORDERABLES F inal Result [facility] [place] [address] * CT Chest Abdomen Pelvis W Contrast (03/04/2021 3:23 PM MACHINE EGG WASHER) Anatomical Region Laterality Modality Body N/A Computed Tomogra phy 03/04/2021 4:18 PM MACHINE EGG WASHER Impressions 03/04/2021 11:38 PM MACHINE EGG WASHER 1. Subtle 2.2 cm possible lesion in [...] Jose Levine MD Narrative 03/04/2021 11:38 PM MACHINE EGG WASHER EXAMINATION: Computed tomography of the chest, abdomen [...] recommended. Electronically signed by: Jose Levine MD us Sweta Salvador MD PhD IMG CT PROCEDURES Janeen l Result * (ABNORMAL) Hemoglobin A1c (01/21/2020 3:20 PM MACHINE EGG WASHER) Hgb A1C 8.8(H) 4.0 - 5.6 % [facility] Estimated Average Glucose 206 mg/dL [facility] Comment: The ADA recommends reporting an estimated Average Glucose (eAG) with all Hemoglobin A1c results using the equation derived from a study of 507 normal and diabetic adults. Minority populations were underrepresented and children were not included. (Diabetes Care 31:5119-3609, 2008). The eAG is not equivalent to a fasting glucose. Blood specimen (specimen) 01/21/2020 3:20 PM MACHINE EGG WASHER 01/21/2020 3:24 PM MACHINE EGG WASHER Molly Khan MD LAB BLOOD ORDERABLES Final Result Performing Organization Address City/State/ZIP Co ok Phone Number [facility] [address] Department [place] [address] from Last 3 Months or Most Recently Relevant to Health Maintenance Insurance [facility] MEDICARE [facility] Advance Directives For more information, please contact: [phone] * Full Code (Latest Code Status on File) Date Activated Date Inactivated Comments 03/04/2021 9:56 AM 03/05/2021 5:22 PM * Full Code Date Activated Date Inactivated Comments 01/21/2020 10:42 AM 01/22/2020 3:09 AM Care Teams Sales Marketing Relationship Specialty Start Date End Date Brown Gutierrez MD [address] [place], [place] [id number] PCP - General Internal Medicine 01/20/20 Geronimo Ji MD [address] [place] [address] Referring Physician Cardiovascular Disease 01/21/20
--- OUTSIDE RECORDS SUMMARY | 2024-04-19 07:13 | XMS_ITS | Clinical Summary ---
Author Organization [facility] Address [address] [address] Phone Care Team Providers Care Steel Grinder Name Role Phone Brown Gutierrez DO Primary Care Provider [phone] Allergies No known active allergies Medications No known medications Immunizations Immunization Administration Dates Next Due Covid-19, Mrna, Lnp-s, PF, 1 00 mcg/0.5 mL Dose (Moderna) 05/19/2020,04/21/2020 Family History Medical History Relation Name Comments Other-comment Father Pancreatitis Heart Disease Mother Relation Name Status Comments Father Mother Social History Tobacco Use Types Packs/Day Years Used Date Smoking Tobacco: Every Day Cigars Smokeless Tobacco: Never Comments:12/yr Alcohol Use Standard Drinks/Week Comments Yes 5 (1 standard drink = 0.6 oz pur e alcohol) Sex and Gender Information Value Date Recorded Sex Assigned at Not on file Legal Sex Male 8:22 PM CDT Gender Identity Not on file Sexual Orientation Not on file Last Filed Vital Signs Vital Sign Reading Time Taken Comments Blood Pressure - - Pulse - - Temperature - - Respiratory Rate - - Oxygen Saturation - - Inhaled Oxygen Concentration - - Weight 74.8 kg (165 lb) 12/12/2019 1:00 PM CDT Height 157.5 cm (5' 2 ) 12/12/2019 1:00 PM CDT Body Mass Index 30.18 12/12/2019 1:00 PM CDT Plan of Treatment Health Maintenance Due Date Last Done Comments Hepatitis C Virus (HCV) Screening 1960 TdaP Immunization 1960 Cologuard 2008 Immunochemical Fecal Occult Blood 2008 Pneumococcal Immunization (5 0+ years) (1 of 1 - PCV) 2008 Zoster Immunization (1 of 2) 2008 PSA Discussion 2013 Colonoscopy 01/23/2022 01/24/2012 Colorectal Cancer Screening 01/23/2022 Influenza Immunization (#1) 2023 SARS-COV-2 Immunization ( season) 2023 05/19/2020, 04/21/2020 Respiratory Syncytial Virus (RSV) Immunization (Adult) (1 - 1-dose 75+ series) 2033 01/24/2012 Hepatitis B Immunization Aged Out No longer eligible based on patient's age to complete this topic Meningococcal Immunization (ACWY) Aged Out No longer eligible b ased on patient's age to complete this topic Pneumococcal Immunization Combined Aged Out No longer eligible b ased on patient's age to complete this topic Rotavirus Immunization Aged Out No lo nger eligible based on patient's age to complete this topic Procedures Procedure Name Priority Date/Time Associated Diagnosis Comments COLONOSCOPY Routine 01/24/2012 from Last 3 Months or Most Recently Relevant to Health Maintenance Results * COLONOSCOPY (01/24/2012) Brown Gutierrez DO PROCEDURE/MINOR SURGICAL OR DERABLES Final Result from Last 3 Months or Most Recently Relevant to Health Maintenance Care Teams Steel Grinder Relationship Specialty Start Date End Date Brown Gutierrez DO [address] [place] [address] PCP - General Internal Medicine 06/22/17
--- OUTSIDE RECORDS SUMMARY | 2024-04-19 07:13 | XMS_ITS | Encounter Summary ---
Author Organization [facility] Address [address] [place] [address] Care Team Providers Care Systems Requirements Planner Name Role Phone Unavailable Primary Care Provider Unavailabl e Encounter Details Date Type Department Care Team (Late st Contact Info) Description 04/27/2000 Outpatient Historical [facility] Anthony Miller MD Social History Tobacco Use Types Packs/Day Years Used Date Smoking Tobacco: Never Assessed Sex and Gender Information Value Date Recorded Sex Assigned at Not on file Legal Sex Male 4:01 AM ANATOMY TEACHER Gender Identity Not on file Sexual Orientation Not on file documented as of this encounter Plan of Treatment Not on file documented as of this encounter Visit Diagnoses Not on filedocumented in this encounter
--- OUTSIDE RECORDS SUMMARY | 2024-04-19 07:13 | XMS_ITS | Encounter Summary ---
Author Organization [facility] Address [address] [place] [address] Care Team Providers Care Size Changer Name Role Phone Unavailable Primary Care Provider Unavailabl e Encounter Details Date Type Department Care Team (Late st Contact Info) Description 06/29/2000 Outpatient Historical [facility] Anthony Miller MD Social History Tobacco Use Types Packs/Day Years Used Date Smoking Tobacco: Never Assessed Sex and Gender Information Value Date Recorded Sex Assigned at Not on file Legal Sex Male 4:01 AM REPORTING COORDINATOR Gender Identity Not on file Sexual Orientation Not on file documented as of this encounter Plan of Treatment Not on file documented as of this encounter Visit Diagnoses Not on filedocumented in this encounter
--- OUTSIDE RECORDS SUMMARY | 2024-04-19 07:13 | XMS_ITS | Encounter Summary ---
Author Organization [facility] Address [address] [place] [address] Care Team Providers Care Cane Burner Name Role Phone Unavailable Primary Care Provider Unavailabl e Encounter Details Date Type Department Care Team (Late st Contact Info) Description 08/31/1998 Outpatient Historical [facility] Anthony Miller MD Social History Tobacco Use Types Packs/Day Years Used Date Smoking Tobacco: Never Assessed Sex and Gender Information Value Date Recorded Sex Assigned at Not on file Legal Sex Male 4:01 AM INFORMATICS ANALYST Gender Identity Not on file Sexual Orientation Not on file documented as of this encounter Plan of Treatment Not on file documented as of this encounter Visit Diagnoses Not on filedocumented in this encounter
--- OUTSIDE RECORDS SUMMARY | 2024-04-19 07:14 | XMS_ITS | Encounter Summary ---
Author Organization [facility] Address [address] [place] [address] Phone Care Team Providers Care Elementary School Registrar Name Role Phone Brown Gutierrez MD Primary Care Provider [phone]- [phone] Geronimo Ji MD Unavailable Encounter Details Date Type Department Care Team (Late st Contact Info) Description 03/04/2021 Ophth Exam [facility] [address] [place] [address] [address] [place] [address] Amos Turner MD [address] [facility] [address] [place] [address] Social History Tobacco Use Types Packs/Day Years Used Date Smoking Tobacco: Former Cigars Q uit: 01/21/2020 Smokeless Tobacco: Never Alcohol Use Standard Drinks/Week Comments Yes 14 [...] on file Legal Sex Male 7:59 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 Gender Identity Not on file Sexual Orientation Not on file 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 Not on file Not on file documented as of this encounter Plan of Treatment Not on file documented as of this encounter Visit Diagnoses Not on filedocumented in this encounter Eye Exam Visual Acuity Right eye Left eye Near cc 20/20 20/25 ph NI Tonometry (Tonopen, 4:15 PM) Right eye Left eye Pressure STP STP Pupils Dark Light Shape React APD Right eye 4 2 Round Brisk None Left eye 4 3 Round Brisk + Visual Daniel Right eye Left eye Full Full Extraocular Movement Right eye Left eye Full, Ortho Full, Ortho Color Right eye Left eye Ishihara 02/21 02/21 External Exam Right eye Left eye External Normal Normal Slit Lamp Exam Right eye Left eye Lids/Lashes Normal Normal Conjunctiva/Sclera White and quiet White and taty et Cornea Clear Clear Anterior Chamber Deep and quiet Deep and quiet Iris Round and reactive Round and keri ctive Lens NSC NSC Vitreous Normal Normal Care Teams Elementary School Registrar Relationship Specialty Start Date End Date Brown Gutierrez MD [address] [place] [address] PCP - General Internal Medicine 01/20/20 Geronimo Ji MD [address] [place] [address] Referring Physician Cardiovascular Disease 01/21/20 documented as of this encounter
--- OUTSIDE RECORDS SUMMARY | 2024-04-19 07:14 | XMS_ITS | Patient Health Summary ---
Author Organization [facility] Address [address] [place] [address] Care Team Providers Care Batch Plant Operator Name Role Phone Brown Gutierrez DO Primary Care Provider [phone]- [phone] Note from [facility],non-owned Affiliates and Associated Physician Practices is amultiple site organization consisting of ambulatory clinics and hospital sitesin [place], [place], [place] and [place]. This disclosure is being madepursuant to the Care Everywhere program and may not contain all information available regarding this patient. Last updated 17.[facility] Immunizations * INFLUENZA VACCINE, QUADR. (FLUZONE; FLULAVAL; FLUARIX; AFLURIA QUADRIVALENT; 6MO+), 0.5 ML (IIV4)(Given 02/02/2020) Social History Tobacco Use Types Packs/Day Years Used Date Smoking Tobacco: Never Assessed Sex and Gender Information Value Date Recorded Sex Assigned at Not on file Gender Identity Not on file Sexual Orientation Not on file Care Teams Batch Plant Operator Relationship Specialty Start Date End Date Brown Gutierrez DO [address] [facility] [address] [facility] [address] [place] [address] PCP - General 02/15/21
[2024-04-19 08:10] LABS: Albumin Level 4.7 g/dL (3.5-5.1); Anion Gap 11 mmol/L (4-12); Blood Urea Nitrogen 24 mg/dL (9-20); Calcium 9.4 mg/dL (8.4-10.2); Carbon Dioxide 32 mmol/L (22-30); Chloride 99 mmol/L (98-107); Estimated Glomerular Filt Rate > 60; Glucose 169 mg/dL (65-110); Phosphorus 4.1 mg/dL (2.5-4.5); Potassium 4.1 mmol/L (3.4-5.0); Sodium 142 mmol/L (137-145)
[2024-04-19 13:07] LABS: Creatinine Urine 108.4 mg/dL; Total Protein Urine Random 42 mg/dL; Ur Ttl Prot Creatinine Ratio 0.39 mg/mg (0-0.20)
== END 2024-04-19 07:10 | disposition home or self-care (01) ==
LOC: ANHLAB 07:11
PROVIDERS: PCP Internal Medicine; Visit Provider Internal Medicine Nephrology
DX: R80.9 Proteinuria, unspecified (principal); I10 Essential (primary) hypertension; E11.29 Type 2 diabetes mellitus with other diabetic kidney complication
CPT/HCPCS: 36415; 80069; 82570; 84156

== ENCOUNTER 2024-05-01 08:15 | Outpatient (CLI) | payer MEDICARE, OTHER, SELFPAY ==
--- OUTSIDE RECORDS SUMMARY | 2024-05-01 08:19 | XMS_ITS | Clinical Summary ---
Author Organization [facility] Address [address] [address] Phone Care Team Providers Care Business Services Tech Name Role Phone Brown Gutierrez DO Primary Care Provider Allergies No known active allergies Medications No [...] Recently Relevant to Health Maintenance Care Teams Business Services Tech Relationship Specialty Start Date End Date Brown Gutierrez DO [address] [place] [address] PCP - General Internal Medicine 06/22/17
--- OUTSIDE RECORDS SUMMARY | 2024-05-01 08:19 | XMS_ITS | Clinical Summary ---
Author Organization [facility] Address [address] [place] [address] Care Team Providers Care Medical Education Coordinator Name Role Phone Brown Gutierrez DO Primary Care Provider [phone] [phone] Source Comments [facility],non-owned Affiliates and Associated Physician Practices is amultiple site organization consisting of ambulatory clinics and hospital sitesin [place], [place], [place] and [place]. This disclosure is being madepursuant to the Care Everywhere program and may not contain all information available regarding this patient. Last updated 17.[facility] Immunizations Name Administration Dates Next Due INFLUENZA [...] age to complete this topic Care Teams Medical Education Coordinator Relationship Specialty Start Date End Date Brown Gutierrez DO [address] [facility] [address] [place] [address] PCP - General 02/15/21
--- OUTSIDE RECORDS SUMMARY | 2024-05-01 08:19 | XMS_ITS | Encounter Summary ---
Author Organization [facility] Address [address] [place] [address] Care Team Providers Care Disability Program Navigator Name Role Phone Unavailable Primary Care Provider Unavailabl e Encounter Details Date Type Department Care Team (Late st Contact Info) Description 04/27/2000 Outpatient Historical [facility] Anthony Miller MD Social History Tobacco Use Types Packs/Day Years Used Date Smoking Tobacco: Never Assessed Sex and Gender Information Value Date Recorded Sex Assigned at Not on file Legal Sex Male 4:01 AM PATIENT CARE COORDINATOR Gender Identity Not on file Sexual Orientation Not on file documented as of this encounter Plan of Treatment Not on file documented as of this encounter Visit Diagnoses Not on filedocumented in this encounter
--- OUTSIDE RECORDS SUMMARY | 2024-05-01 08:19 | XMS_ITS | Clinical Summary ---
Author Organization [facility] [address] Address [address] [place] [address] Care Team Providers Care Decating Machine Operator Name Role Phone Brown Gutierrez MD Primary Care Provider +1- [phone] Geronimo iJ MD Unavailable Allergies No known active allergies [...] Department Care Team Description 02/13/2024 8:15 AM ATHLETIC EQUIPMENT MANAGER Office Visit [facility] Cardiology [address] [facility] [[email or web address] [address] [place] [address] Basim Holt MD Presence of stent in coronary artery (Primary Dx); NSTEMI (non-ST elevated myocardial infarction) (CMS/HCC) ([facility]); Lipid screening from Last 3 Months Immunizations Immunization Administration Dates Next Due Influenza, Unspecified 01/08/2021 Surgical History Surgery Date Site/Laterality Comments THYROIDECTOMY, PARTIAL benign nodules KNEE SURGERY Right torn meniscus UMBILICAL HERNIA REPAIR CORONARY ANGIOPLASTY 01/21/2020 Stent to the left circumflex Medical History Medical History Date Comments Diabetes mellitus (HCC) Hypertension Hyperlipidemia Abnormal blood level of uric acid Thyroid disease GERD (gastroesophageal reflux disease) Coronary artery disease 01/19/2020 [place] (myocardial infarction) ([facility]) Spinal stenosis Gout Family History Medical History [...] on file Legal Sex Male 7:59 AM ATHLETIC EQUIPMENT MANAGER Gender Identity Not on file Sexual Orientation Not on file 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 Not on file Not on file Obstetrics History Last Filed Vital Signs Vital Sign Reading Time Taken Comments Blood Pressure 170/80 02/13/2024 8:19 AM ATHLETIC EQUIPMENT MANAGER Pulse 80 02/13/2024 8:19 AM ATHLETIC EQUIPMENT MANAGER Temperature 36.4 C (97.5 F) 03/05/2021 7:40 AM ATHLETIC EQUIPMENT MANAGER Respiratory Rate 18 03/05/2021 7:40 AM ATHLETIC EQUIPMENT MANAGER Oxygen Saturation 96% 02/13/2024 8:19 AM ATHLETIC EQUIPMENT MANAGER Inhaled Oxygen Concentration - - Weight 69.6 kg (153 lb 6.4 oz) 02/13/2024 8:19 A M ATHLETIC EQUIPMENT MANAGER Height 157.5 cm (5' 2 ) 02/13/2024 8:19 AM ATHLETIC EQUIPMENT MANAGER Body Mass Index 28.06 02/13/2024 8:19 AM ATHLETIC EQUIPMENT MANAGER Plan of Treatment Health Maintenance Due Date Last Done Comments Albumin Creatinine Ratio, Urine 1958 Colon Cancer Screening-Colonoscopy 1958 Depression Screening 1958 Hepatitis C Screening 1958 Foot Exam 1958 DTaP/Tdap/Td Vaccine (1 - Tdap) 1969 Hepatitis B Screening 1976 Pneumococcal vaccine 65+ (1 of 2 - PCV) 1977 Zoster Vaccine (1 of 2) 2008 Hemoglobin [...] history exists Medical Devices Implanted Type Area Senior Software Quality Analyst Device Identifier Shelf Expiration Date Model / Serial / Lot [employer] Arsalan [id number] Synergy 3mm 38mm 144cm Radiopaque 1 Access Port Inflation Lumen - [id number] - [id number] Implanted:Qty: 1 on 01/21/2020 by Geronimo Ji MD at [facility] Stent [employer]salan 10/16/2021 [id number] / [id number] / [id number] Procedures Procedure Name Priority Date/Time Associated Diagnosis Comments POCT LIPID PANEL Routine 02/13/2024 4:52 PM ATHLETIC EQUIPMENT MANAGER Lipid screening PSA SCREEN Routine 03/05/2021 5:09 AM ATHLETIC EQUIPMENT MANAGER EGFR STAT 03/04/2021 4:[address] CHEST ABDOMEN PELVIS W CONTRAST IP Routine 03/04/2021 3:23 PM ATHLETIC EQUIPMENT MANAGER HEMOGLOBIN A1C STAT 01/21/2020 3:20 PM ATHLETIC EQUIPMENT MANAGER from Last 3 Months or Most Recently Relevant to Health Maintenance Results * POCT lipid panel (02/13/2024 4:52 PM ATHLETIC EQUIPMENT MANAGER) Cholesterol, POC 140 mg/dL Comment:GLU = 166 HDL, POC 57 mg/dL Triglycerides, POC 87 mg/dL LDL Cholesterol POC 66 mg/dL Chol/HDL Ratio, POC 1.2 Non-HDL Cholesterol, POC 83 mg/dL Cholesterol Total, POC 140 mg/dL Capillary blood 02/13/2024 4 :52 PM ATHLETIC EQUIPMENT MANAGER us Basim Holt MD POINT OF CARE TEST ORDER TRUNG Final Result * PSA screen (03/05/2021 5:09 AM ATHLETIC EQUIPMENT MANAGER) PSA-Total 1.29 <=5.40 ng/mL [facility] Comment: Interpretive Data AGE SEX REFERENCE INTERVAL 0 minutes-150 years Female None 0 minutes-49 years Male None 50-59 years Male 0-3.90 60-69 years Male 0-5.40 70-79 years Male 0-6.20 80-150 years Male 0-6.20 Current interpretive data last revised 2017. Blood 03/05/2021 5:09 AM ATHLETIC EQUIPMENT MANAGER 03/05/2021 6:29 AM ATHLETIC EQUIPMENT MANAGER Sweta Salvador MD PhD LAB BLOOD ORDERABLES F inal Result [facility] One [facility] Department [place] [address] * eGFR (03/04/2021 4:36 PM ATHLETIC EQUIPMENT MANAGER) eGFR >90 90 - 130 mL/min/1. 73 m2 [facility] Comment: Interpretive Data Reference Interval Normal [...] last reviewed 2021. Blood 03/04/2021 4:36 PM ATHLETIC EQUIPMENT MANAGER 03/04/2021 4:54 PM ATHLETIC EQUIPMENT MANAGER us Sweta Salvador MD PhD LAB BLOOD ORDERABLES F inal Result [facility] [place] [address] * CT Chest Abdomen Pelvis W Contrast (03/04/2021 3:23 PM ATHLETIC EQUIPMENT MANAGER) Anatomical Region Laterality Modality Body N/A Computed Tomogra phy 03/04/2021 4:18 PM ATHLETIC EQUIPMENT MANAGER Impressions 03/04/2021 11:38 PM ATHLETIC EQUIPMENT MANAGER 1. Subtle 2.2 cm possible lesion in [...] Jose Levine MD Narrative 03/04/2021 11:38 PM ATHLETIC EQUIPMENT MANAGER EXAMINATION: Computed tomography of the chest, abdomen [...] * (ABNORMAL) Hemoglobin A1c (01/21/2020 3:20 PM ATHLETIC EQUIPMENT MANAGER) Hgb A1C 8.8(H) 4.0 - 5.6 % [facility] Estimated Average Glucose 206 mg/dL [facility] Comment: The ADA recommends reporting an estimated Average Glucose (eAG) with all Hemoglobin A1c results using the equation derived from a study of 507 normal and diabetic adults. Minority populations were underrepresented and children were not included. (Diabetes Care 31:4487-0026, 2008). The eAG is not equivalent to a fasting glucose. Blood specimen (specimen) 01/21/2020 3:20 PM ATHLETIC EQUIPMENT MANAGER 01/21/2020 3:24 PM ATHLETIC EQUIPMENT MANAGER us Molly Khan MD LAB BLOOD ORDERABLES Final Result [facility] [address] Department [place] [address] from Last 3 Months or Most Recently Relevant to Health Maintenance Insurance [facility] MEDICARE [facility] Advance Directives For more information, please contact: [phone] * Full Code (Latest Code Status on File) Date Activated Date Inactivated Comments 03/04/2021 9:56 AM 03/05/2021 5:22 PM * Full Code Date Activated Date Inactivated Comments 01/21/2020 10:42 AM 01/22/2020 3:09 AM Care Teams Decating Machine Operator Relationship Specialty Start Date End Date Brown Gutierrez MD [address] [place], [place] [id number] PCP - General Internal Medicine 01/20/20 Geronimo Ji MD [address] [place] [address] Referring Physician Cardiovascular Disease 01/21/20
--- OUTSIDE RECORDS SUMMARY | 2024-05-01 08:19 | XMS_ITS | Encounter Summary ---
Author Organization [facility] Address [address] [place] [address] Care Team Providers Care Gin Inspector Name Role Phone Unavailable Primary Care Provider Unavailabl e Encounter Details Date Type Department Care Team (Late st Contact Info) Description 06/29/2000 Outpatient Historical [facility] Anthony Miller MD Social History Tobacco Use Types Packs/Day Years Used Date Smoking Tobacco: Never Assessed Sex and Gender Information Value Date Recorded Sex Assigned at Not on file Legal Sex Male 4:01 AM FIRST RESPONDER Gender Identity Not on file Sexual Orientation Not on file documented as of this encounter Plan of Treatment Not on file documented as of this encounter Visit Diagnoses Not on filedocumented in this encounter
--- OUTSIDE RECORDS SUMMARY | 2024-05-01 08:19 | XMS_ITS | Encounter Summary ---
Author Organization [facility] Address [address] [place] [address] Phone Care Team Providers Care Paving Rammer Name Role Phone Brown Gutierrez MD Primary Care Provider +1- [phone] Geronimo Ji MD Unavailable Encounter Details Date Type Department Care Team (Late st Contact Info) Description 03/04/2021 Ophth Exam [facility] Ophthalmology [address] [place] [address] 1[address] [place] [address] Amos Turner MD [address] [place] [address] Social History Tobacco Use Types [...] on file Legal Sex Male 7:59 AM COUNTER CUTTER Gender Identity Not on file Sexual Orientation Not on file 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
--- OUTSIDE RECORDS SUMMARY | 2024-05-01 08:19 | XMS_ITS | Referral Summary ---
Author Organization [facility] Address [address] [place] [address] Care Team Providers Care Facing Grinder Name Role Phone Brown Gutierrez DO Primary Care Provider +1 [phone] Source Comments [facility],non-owned Affiliates and Associated Physician Practices is amultiple site organization consisting of ambulatory clinics and hospital sitesin [place], [place], [place] and [place]. This disclosure is being madepursuant to the Care Everywhere program and may not contain all information available regarding this patient. Last updated 17.[facility] Immunizations Name Administration Dates Next Due INFLUENZA [...] of Treatment Not on file Care Teams Facing Grinder Relationship Specialty Start Date End Date Brown Gutierrez DO [address] [facility] [address] [place], [place] [id number] PCP - General 02/15/21
--- OUTSIDE RECORDS SUMMARY | 2024-05-01 08:19 | XMS_ITS | Referral Summary ---
Author Organization [facility] [address] Address [address] [place] [address] Care Team Providers Care Pipeline Dispatch Operator Name Role Phone Brown Gutierrez MD Primary Care Provider +1- [phone] Geronimo Ji MD Unavailable Encounters Date Type Department Care Team Description 02/13/2024 8:15 AM TECHNICAL BUYER Office Visit [facility] Cardiology [address] [place] [address] Basim Holt MD Presence of [...] Hypertension NSTEMI (non-ST elevated myocardial infarction) ( [facility]) Immunizations Immunization Administration Dates Next Due Influenza, [...] on file Legal Sex Male 7:59 AM TECHNICAL BUYER Gender Identity Not on file Sexual Orientation Not on file 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 Not on file Not on file Last Filed Vital Signs Vital Sign Reading Time Taken Comments Blood Pressure 170/80 02/13/2024 8:19 AM TECHNICAL BUYER Pulse 80 02/13/2024 8:19 AM TECHNICAL BUYER Temperature 36.4 C (97.5 F) 03/05/2021 7:40 AM TECHNICAL BUYER Respiratory Rate 18 03/05/2021 7:40 AM TECHNICAL BUYER Oxygen Saturation 96% 02/13/2024 8:19 AM TECHNICAL BUYER Inhaled Oxygen Concentration - - Weight 69.6 kg (153 lb 6.4 oz) 02/13/2024 8:19 A M TECHNICAL BUYER Height 157.5 cm (5' 2 ) 02/13/2024 8:19 AM TECHNICAL BUYER Body Mass Index 28.06 02/13/2024 8:19 AM TECHNICAL BUYER Plan of Treatment Not on file Medical Devices Implanted Type Area Nylon Machine Operator Device Identifier Shelf Expiration Date Model / Serial / Lot [employer] [id number] Synergy 3mm 38mm 144cm Radiopaque 1 Access Port Inflation Lumen - [id number] - [id number] Implanted:Qty: 1 on 01/21/2020 by Geronimo Ji MD at [facility] Stent [employer] 10/16/2021 [id number] / [id number] / [id number] Procedures Procedure Name Priority Date/Time Associated Diagnosis Comments POCT LIPID PANEL Routine 02/13/2024 4:52 PM TECHNICAL BUYER Lipid screening PSA SCREEN Routine 03/05/2021 5:09 AM TECHNICAL BUYER EGFR STAT 03/04/2021 4:[address] CHEST ABDOMEN PELVIS W CONTRAST IP Routine 03/04/2021 3:23 PM TECHNICAL BUYER HEMOGLOBIN A1C STAT 01/21/2020 3:20 PM TECHNICAL BUYER from Last 3 Months or Most Recently Relevant to Health Maintenance Results * POCT lipid panel (02/13/2024 4:52 PM TECHNICAL BUYER) Cholesterol, POC 140 mg/dL Comment:GLU = 166 HDL, POC 57 mg/dL Triglycerides, POC 87 mg/dL LDL Cholesterol POC 66 mg/dL Chol/HDL Ratio, POC 1.2 Non-HDL Cholesterol, POC 83 mg/dL Cholesterol Total, POC 140 mg/dL Capillary blood 02/13/2024 4 :52 PM TECHNICAL BUYER us Basim Holt MD POINT OF CARE TEST ORDER TRUNG Final Result * PSA screen (03/05/2021 5:09 AM TECHNICAL BUYER) PSA-Total 1.29 <=5.40 ng/mL [facility] Comment: Interpretive Data AGE SEX REFERENCE INTERVAL 0 minutes-150 years Female None 0 minutes-49 years Male None 50-59 years Male 0-3.90 60-69 years Male 0-5.40 70-79 years Male 0-6.20 80-150 years Male 0-6.20 Current interpretive data last revised 2017. Blood 03/05/2021 5:09 AM TECHNICAL BUYER 03/05/2021 6:29 AM TECHNICAL BUYER us Sweta Salvador MD PhD LAB BLOOD ORDERABLES F inal Result [facility] One [facility] Department [place] [address] * eGFR (03/04/2021 4:36 PM TECHNICAL BUYER) eGFR >90 90 - 130 mL/min/1. 73 m2 [facility] Comment: Interpretive Data Reference Interval Normal [...] last reviewed 2021. Blood 03/04/2021 4:36 PM TECHNICAL BUYER 03/04/2021 4:54 PM TECHNICAL BUYER us Sweta Salvador MD PhD LAB BLOOD ORDERABLES F inal Result [facility] Department [place] [address] * CT Chest Abdomen Pelvis W Contrast (03/04/2021 3:23 PM TECHNICAL BUYER) Anatomical Region Laterality Modality Body N/A Computed Tomogra phy 03/04/2021 4:18 PM TECHNICAL BUYER Impressions 03/04/2021 11:38 PM TECHNICAL BUYER 1. Subtle 2.2 cm possible lesion in [...] Jose Levine MD Narrative 03/04/2021 11:38 PM TECHNICAL BUYER EXAMINATION: Computed tomography of the chest, abdomen [...] * (ABNORMAL) Hemoglobin A1c (01/21/2020 3:20 PM TECHNICAL BUYER) Hgb A1C 8.8(H) 4.0 - 5.6 % [facility] Estimated Average Glucose 206 mg/dL [facility] Comment: The ADA recommends reporting an estimated Average Glucose (eAG) with all Hemoglobin A1c results using the equation derived from a study of 507 normal and diabetic adults. Minority populations were underrepresented and children were not included. (Diabetes Care 31:2662-6754, 2008). The eAG is not equivalent to a fasting glucose. Blood specimen (specimen) 01/21/2020 3:20 PM TECHNICAL BUYER 01/21/2020 3:24 PM TECHNICAL BUYER Molly Khan MD LAB BLOOD ORDERABLES Final Result Performing Organization Address City/State/ZIP Co ma Phone Number [facility] [address] Department [place] [address] from Last 3 Months or Most Recently Relevant to Health Maintenance Insurance [facility] MEDIC[facility] Address: [address] [address] [place] [address] [facility] Advance Directives For more information, please contact: [phone] * Full Code (Latest Code Status on File) Date Activated Date Inactivated Comments 03/04/2021 9:56 AM 03/05/2021 5:22 PM * Full Code Date Activated Date Inactivated Comments 01/21/2020 10:42 AM 01/22/2020 3:09 AM Care Teams Pipeline Dispatch Operator Relationship Specialty Start Date End Date Brown Gutierrez MD [address] [place], [place] [id number] PCP - General Internal Medicine 01/20/20 Geronimo Ji MD [address] [place] [address] Referring Physician Cardiovascular Disease 01/21/20
--- OUTSIDE RECORDS SUMMARY | 2024-05-01 08:19 | XMS_ITS | Encounter Summary ---
Author Organization [facility] Address 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
--- OUTSIDE RECORDS SUMMARY | 2024-05-01 08:19 | XMS_ITS | Encounter Summary ---
Author Organization [facility] Address 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
--- OUTSIDE RECORDS SUMMARY | 2024-05-01 08:19 | XMS_ITS | Clinical Summary ---
Author Organization [facility] Address [address] [place] [address] Phone Care Team Providers Care Hse Coordinator Name Role Phone Brown Gutierrez Primary Care Provider [phone] Allergies No known active allergies Medications Medication [...] 11/05/2022 11/05/2021, 0 07/02/2021, 04/23/2021 COVID-19 Vaccine ( season) 11/12/202311/2020, 04/21/2020 Influenza Vaccine (#1) 2023 01/08/2021, 2019 Care Teams Hse Coordinator Relationship Specialty Start Date End Date Brown Gutierrez DO [address] [address] PCP - General Internal Medicine 03/30/21
--- OUTSIDE RECORDS SUMMARY | 2024-05-01 08:19 | XMS_ITS | Clinical Summary ---
Author Organization [facility] Address [address] [facility] Attn: Epic Prelude ADT [place]O [address] Care Team Providers Care Cartographic Engineer Name Role Phone Unavailable Primary Care Provider Unavailabl e Social History Tobacco Use Types Packs/Day Years Used Date Smoking Tobacco: Never Assessed Sex and Gender Information Value Date Recorded Sex Assigned at Not on file Legal Sex Male 4:01 AM TUBE PULLER Gender Identity Not on file Sexual Orientation [...]
--- OUTSIDE RECORDS SUMMARY | 2024-05-01 08:19 | XMS_ITS | Patient Health Summary ---
Author Organization [facility] Address [address] [place] [address] Care Team Providers Care Dynamo Repairer Name Role Phone Brown Gutierrez DO Primary Care Provider [phone] Note from [facility],non-owned Affiliates and Associated Physician Practices is amultiple site organization consisting of ambulatory clinics and hospital sitesin [place], [place], [place] and [place]. This disclosure is being madepursuant to the Care Everywhere program and may not contain all information available regarding this patient. Last updated 17.[facility] Immunizations * INFLUENZA VACCINE, QUADR. (FLUZONE; FLULAVAL; FLUARIX; AFLURIA QUADRIVALENT; 6MO+), 0.5 ML (IIV4)(Given 02/02/2020) Social History Tobacco Use Types Packs/Day Years Used Date Smoking Tobacco: Never Assessed Sex and Gender Information Value Date Recorded Sex Assigned at Not on file Gender Identity Not on file Sexual Orientation Not on file Care Teams Dynamo Repairer Relationship Specialty Start Date End Date Brown Gutierrez DO [address] [facility] [facility] [address] [place] [address] PCP - General 02/15/21
[2024-05-01 09:14] LABS: Alanine Aminotransferase 25 U/L (6-50); Albumin Level 4.8 g/dL (3.5-5.1); Alkaline Phosphatase 54 U/L (38-126); Anion Gap 10 mmol/L (4-12); Aspartate Amino Transferase 25 U/L (17-59); Bilirubin,Total 0.6 mg/dL (0.2-1.3); Blood Urea Nitrogen 27 mg/dL (9-20); Calcium 9.7 mg/dL (8.4-10.2); Carbon Dioxide 31 mmol/L (22-30); Chloride 98 mmol/L (98-107); Cholesterol 138 mg/dL (0-200); Estimated Glomerular Filt Rate > 60; Glucose 150 mg/dL (65-110); HDL Direct 48 mg/dL; Potassium 4.9 mmol/L (3.4-5.0); Sodium 139 mmol/L (137-145); Triglycerides 216 mg/dL (<150)
[2024-05-01 09:25] LABS: LDL Cholesterol Direct 62 mg/dL
== END 2024-05-01 08:16 | disposition home or self-care (01) ==
PROVIDERS: PCP Nurse Practitioner; Visit Provider Nurse Practitioner
DX: E78.5 Hyperlipidemia, unspecified (principal); Z79.899 Other long term (current) drug therapy
CPT/HCPCS: 36415; 80053; 80061; 84443

== ENCOUNTER 2024-10-12 06:50 | Outpatient (CLI) | payer MEDICARE, OTHER, SELFPAY ==
--- OUTSIDE RECORDS SUMMARY | 2024-10-12 06:53 | XMS_ITS | Referral Summary ---
Author Organization [facility] [address] Address [address] [place] [address] Care Team Providers Care Play Therapist Name Role Phone Geronimo Ji MD Unavailable Jose M Jim DO Primary Care Provider [phone] Encounters Date Type Department Care Team Description 09/26/2024 12:30 PM CDT Office Visit [facility] Orthopaedic Surgery [address] [place] [address] 1st Floor [address] [place] [address] Sherman Veras MD Nontraumatic complete tear of right rotator cuff (Primary Dx) 09/16/2024 7:30 AM CDT - 09/16/2024 9:15 AM CDT Surgery [facility] at [address] [phone] Sherman Veras MD RIGHT SHOULDER ARTHROSCOPIC DEBRIDEMENT 09/16/2024 7:27 AM CDT Anesthesia Event [facility] at [facility] Medicine [address] [place] [phone] Benton Kennedy MD Wiethuchter, Kelli P., NP 09/16/2024 6:15 AM CDT - 09/16/2024 9:54 AM CDT Hospital Encounter [facility] at [address] [phone] Sherman Veras MD Nontraumatic complete tear of right rotator cuff (Primary Dx) Discharge Disposition: Discharge to home or self care 09/11/2024 10:00 AM CDT Imaging Exam [facility] Ophthalmology [address] [facility] [address] [place] [phone] Unspecified disorder of visual pathways 09/11/2024 9:50 AM CDT Imaging Exam [facility] Ophthalmology [address] [phone] Unspecified disorder of visual pathways; Encounter for observation for other suspected diseases and conditions ruled out 09/11/2024 10:30 AM CDT Office Visit [facility] Ophthalmology [address] [place] [phone] Silas Dunham MD Pseudotumor cerebri syndrome (Primary Dx) 09/10/2024 Telephone [facility] Orthopaedic Surgery [address] [place] [address] Floor [address] [place] [phone] Sherman Veras MD 09/09/2024 8:30 AM CDT Office Visit [facility] Cardiology [address] [facility] [address] [place] [address] Agapito Holt MD Presence of stent in coronary artery (Primary Dx) 09/03/2024 Documentation [facility] Orthopaedic Surgery [address] [place] [address] Floor [address] [place] [phone] Sherman Veras MD 09/03/2024 2:44 PM CDT - 09/03/2024 11:59 PM CDT Hospital Encounter [facility] [address] [place] [phone] Discharge Disposition: Discharge to home or self care 09/03/2024 9:13 AM CDT - 09/03/2024 11:59 PM CDT Hospital Encounter [facility] at [address] [address] Right shoulder pain, unspecified chronicity Discharge Disposition: Discharge to home or self care 09/03/2024 9:40 AM CDT Office Visit [facility] Orthopaedic Surgery [address] [place] [address] Floor [address] [place] [phone] Sherman Veras MD Nontraumatic complete tear of right rotator cuff (Primary Dx); Biceps tendinitis of right upper extremity 08/30/2024 Telephone [facility] Ophthalmology [address] [place] [phone] Silas Dunham MD 08/29/2024 9:00 AM CDT Office Visit 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 Ophthalmology [address] [place] [phone] Silas Dunham MD Encounter for observation for other suspected diseases and conditions ruled out (Primary Dx); Unspecified disorder of visual pathways 07/19/2024 Telephone [facility] Ophthalmology [facility] [place] [address] Silas Dunham MD Test Results 07/18/2024 Orders Only [facility] Ophthalmology [address] [place] [phone] Silas Dunham MD 07/18/2024 10:40 AM CDT - 07/18/2024 11:59 PM CDT Hospital Encounter [facility] Neuro Interventional Radiology [address] [place] [phone] Papilledema Discharge Disposition: Discharge to home or self care 07/17/2024 Orders Only [facility] Neuro Interventional Radiology [address] [place] [address] Ashley Álvarez, RN 07/15/2024 Telephone [facility] Neuro Interventional Radiology [address] [place] [phone] Shabana Box RN 07/15/2024 Orders Only [facility] Neuro Interventional Radiology [address] [place] [address] Luciana Hamilton RN 07/12/2024 Telephone [facility] Ophthalmology [facility] 6th [place] [address] Silas Dunham MD from Last 3 Months Allergies No known active allergies Medications magnesium oxide (MAG-OX) 400 mg (241.3 mg elemental magnesium) tabletIndications: hypomagnesemia Take 1 tablet (400 mg total) by mouth 2 (two) times a day Active omeprazole (PriLOSEC) 40 mg capsuleIndications :Treatment of Non-Bleeding Gastric Disorder Take 1 capsule (40 mg total) by mouth early childhood education coordinator before breakfast Active fluticasone propionate (FLONASE) 50 mcg/actuation nasal sprayIndications:A llergic Conjunctivitis Administer 1 spray into each nostril early childhood education coordinator before breakfast Active allopurinoL (ZYLOPRIM) 300 mg tabletIndications: prevention of acute gout attack Take 1 tablet (300 mg total) by mouth early childhood education coordinator before breakfast Active semaglutide (Ozempic) 1 mg/dose (2 mg/1.5 mL) pen injectorIndication s:type 2 diabetes mellitus Inject 0.75 mL (1 mg total) under the skin every 7 days Monday Active metFORMIN (GLUCOPHAGE) 1,000 mg tabletIndications: type 2 diabetes mellitus Take 1 tablet (1,000 mg total) by mouth 2 (two) times a day with meals 05/26/19 21 Active empagliflozin (JARDIANCE) 25 mg tabletIndications: type 2 diabetes mellitus Take 1 tablet (25 mg total) by mouth early childhood education coordinator before breakfast Active ramipriL (ALTACE) 10 mg capsuleIndications :heart Take 1 capsule (10 mg total) by mouth early childhood education coordinator before breakfast 02/09/20 22 Active nitroglycerin (NITROSTAT) 0.4 mg SL tabletIndications: acute myocardial infarction Place 1 tablet (0.4 mg total) under the tongue every 5 (five) minutes as needed for chest pain 90 tablet 09/06/19 23 Active aspirin 81 mg enteric coated tablet TAKE 1 TABLET BY MOUTH EVERY DAY 30 tablet 11 02/16/20 24 Active metoprolol XL (TOPROL-XL) 50 mg extended release tablet TAKE 1 TABLET(50 MG) BY MOUTH DAILY 90 tablet 3 05/22/19 25 Active rosuvastatin (CRESTOR) 5 mg tablet TAKE 1 TABLET(5 MG) BY MOUTH DAILY 30 tablet 11 05/23/19 25 Active acetaZOLAMIDE ER (DIAMOX SEQUAL) 500 mg capsuleIndications :eye health Take 1 capsule (500 mg total) by mouth 2 (two) times a day Active acetaminophen (TYLENOL) 500 mg tablet Take 2 tablets (1,000 mg total) by mouth every 6 (six) hours 60 tablet 1 09/17/19 25 Active oxyCODONE (ROXICODONE) 5 mg immediate release tabletIndications: Pain Take 1 tablet (5 mg total) by mouth every 4 (four) hours as needed for pain 30 tablet 09/17/19 25 Active celecoxib (CeleBREX) 100 mg capsuleIndications :Postoperative Acute Pain Take 1 capsule (100 mg total) by mouth 2 (two) times a day for 15 days 30 capsule 09/17/19 25 Active predniSONE (DELTASONE) 10 mg tabletIndications: Anti-inflammatory Take 1 tablet (10 mg) by mouth daily as needed (pain) 07/14/19 25 025 Discontin ued(Stop Taking at Discharge ) Ozempic 1 mg/dose (4 mg/3 mL) pen injector injection ADMINISTER 1 MG UNDER THE SKIN WEEKLY 08/22/19 25 025 Discontin ued(Dupli sean order) acetaminophen ER (TYLENOL) 650 mg 8 hr tabletIndications: Pain Take 1 tablet (650 mg total) by mouth every 8 (eight) hours as needed for pain 025 Discontin ued(Stop Taking at Discharge ) Active Problems Problem Noted Date Diagnosed Date Right shoulder pain 09/03/2024 Nontraumatic complete tear of right rotator cuff 09/03/2024 Pseudotumor cerebri syndrome 07/02/2021 Papilledema 03/04/2021 Presence of stent in coronary artery 03/19/2020 Abnormal blood level of uric acid Diabetes mellitus Assessment & Plan (08/29/2024 10:26 AM CDT): Sent for evaluation of diabetic retinopathy as a potential cause of optic neuropathy. Examination demonstrates changes consistent with diabetes and diabetic retinopathy. Of note there was no significant neovascularization or macular edema at this time. Considering his fairly good vision, I think observation is all that is necessary we discussed the importance of blood sugar and blood pressure control, I have encouraged him to follow up with his regular eye doctor (Dr Hillman). In addition I have encouraged him to keep his scheduled appointment with Dr. Dunham. GERD (gastroesophageal reflux disease) Hyperlipidemia Hypertension NSTEMI (non-ST elevated myocardial infarction) Immunizations Immunization Administration Dates Next Due Influenza, Unspecified 01/08/2021 Social History Tobacco Use Types Packs/Day Years Used Date Smoking Tobacco: Former Cigars 1 990 - 01/21/2020 Smokeless Tobacco: Never Tobacco Cessation:Counseling Given: Not Answered Alcohol Use Standard Drinks/Week Comments Yes 14 (1 standard drink = 0.6 oz pu re alcohol) AUDIT-C Answer Date Recorded Q1: How often do you have a drink containing alc ohol? 2-3 times a week 09/16/2024 Q2: How many drinks containi ng alcohol do you have on a typical day when you are drinking? 3 or 4 09/16/2024 Q3: How often do you have si x or more drinks on one occasion? Never 09/16/2024 Personal Safety Answer Date Recorded Have you ever been in or are you currently in a harmful physical or emotional relationship or is someone making you feel afraid or unsafe? 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 Not on file Not on file Not on file Last Filed Vital Signs Vital Sign Reading Time Taken Comments Blood Pressure 156/92 09/16/2024 9:30 AM CDT Pulse 71 09/16/2024 9:30 AM CDT Temperature 36 C (96.8 F) 09/16/2024 9:00 AM CDT Respiratory Rate 25 09/16/2024 9:30 AM CDT Oxygen Saturation 93% 09/16/2024 9:30 AM CDT Inhaled Oxygen Concentration - - Weight 66.2 kg (146 lb) 09/16/2024 7:26 AM CDT Height 157.5 cm (5' 2) 09/09/2024 8:44 AM CDT Body Mass Index 26.7 09/09/2024 8:44 AM CDT Plan of Treatment Not on file Medical Devices Implanted Type Area Signals Intelligence Analyst Device Identifier Shelf Expiration Date Model / Serial / Lot [employer] [id number] Synergy 3mm 38mm 144cm Radiopaque 1 Access Port Inflation Lumen - [id number] - [id number] Implanted:Qty: 1 on 01/21/2020 by Geronimo Ji MD at [facility] Stent [employer] 10/16/2021 [id number] / [id number] / [id number] [employer] Fiberloop 3.2mm Drill Pin Needle Shoehorn Cannula Kit Suture [id number]-2290 - [id number] Implanted:Qty: 1 on 09/16/2024 by Sherman Veras MD at [facility] Right: Shoulder [employer] [id number] 05/10/2029 [id number]-2290 / / [id number] Procedures Procedure Name Priority Date/Time Associated Diagnosis Comments POCT GLUCOSE DEVICE Routine 09/16/2024 9 :16 AM CDT DE AN PROCEDURE PLACEHOLDER Routine 09/16/2024 7:55 AM CDT DE AN ELECTIVE ENDOTRACHEAL AIRWAY Routine 09/16/2024 7:55 AM CDT DE AN PROCEDURE PLACEHOLDER Routine 09/16/2024 7:42 AM CDT DE AN PROCEDURE PLACEHOLDER Routine 09/16/2024 7:41 AM CDT TENODESIS - BICEPS 09/16/2024 7: 28 AM CDT Right shoulder pain, unspecified chronicity Nontraumatic complete tear of right rotator cuff Case Notes 09/04@1533: add Dr. Reyes and make first case in OR 2 per Rubi via staff msg. BR Special Needs single shot w/ additive, arthrex biceps button ARTHROSCOPY SHOULDER SUBACROMIAL DECOMPRESSION 09/16/2024 7:28 AM CDT Right shoulder pain, unspecified chronicity Nontraumatic complete tear of right rotator cuff Case Notes 09/04@1533: add Dr. Reyes and make first case in OR 2 per Rubi via staff msg. BR Special Needs single shot w/ additive, arthrex biceps button ARTHROSCOPIC DEBRIDEMENT SHOULDER 09/16/2024 7:28 AM CDT Right shoulder pain, unspecified chronicity Nontraumatic complete tear of right rotator cuff Case Notes 09/04@1533: add Dr. Reyes and make first case in OR 2 per Rubi via staff msg. BR Special Needs single shot w/ additive, arthrex biceps button POCT GLUCOSE DEVICE Routine 09/16/2024 6 :46 AM CDT PAIN BLOCK Routine 09/16/2024 6:22 AM CDT FU VISUAL FIELD - OU - BOTH EYES Routine 09/11/2024 10:35 AM CDT Unspecified disorder of visual pathways OCT, RETINA - OU - BOTH EYES Routine 09/11/2024 10:34 AM CDT Encounter for observation for other suspected diseases and conditions ruled out OCT, OPTIC NERVE - OU - BOTH EYES Routine 09/11/2024 10:31 AM CDT Unspecified disorder of visual pathways MSK MR OUTSIDE REFERENCE Routine 09/03/2024 2:44 PM CDT Diagnosis unknown XR SHOULDER RIGHT 2 OR MORE VIEWS Schedule Routine, Read Routine (OP Routine) 09/03/2024 9:18 AM CDT Right shoulder pain, unspecified chronicity FLUORESCEIN ANGIOGRAPHY, OU TRANSIT OD - OU - BOTH EYES Routine 08/29/2024 10:24 AM CDT 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, without long-term current use of insulin (HCC) OCT, RETINA - OU - BOTH EYES Routine 08/29/2024 10:22 AM CDT 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, without long-term current use of insulin (HCC) IR LUMBAR PUNCTURE, DIAGNOSTIC INCL FLUORO GUIDANCE Schedule Routine, Read Routine (OP Routine) 07/18/2024 12:33 PM CDT Papilledema SURGICAL PATHOLOGY Routine 07/18/2024 11:50 AM CDT FLOW LEUKEMIA/LYMPHOMA Timed 07/18/2024 11:50 AM CDT IGG INDEX, CSF Routine 07/18/2024 11:50 AM CDT OLIGOCLONAL BANDS Routine 07/18/2024 11:50 AM CDT MULTIPLE SCLEROSIS (MS) PROFILE WITH REFLEX TO OLIGOCLONAL BANDS, CSF/SERUM Routine 07/18/2024 11:50 AM CDT CSF PROTEIN Routine 07/18/2024 11:50 AM CDT CELL COUNT W REFLEX DIFFERENTIAL, CSF Routine 07/18/2024 11:50 AM CDT GLUCOSE, CSF Routine 07/18/2024 11:50 AM CDT CYTOLOGY Routine 07/18/2024 11:39 AM CDT POCT LIPID PANEL Routine 02/13/2024 4:52 PM WOOD STAINER Lipid screening PSA SCREEN Routine 03/05/2021 5:09 AM WOOD STAINER EGFR STAT 03/04/2021 4:[address] CHEST ABDOMEN PELVIS W CONTRAST IP Routine 03/04/2021 3:23 PM WOOD STAINER HEMOGLOBIN A1C STAT 01/21/2020 3:20 PM WOOD STAINER from Last 3 Months or Most Recently Relevant to Health Maintenance Results * POCT glucose (09/16/2024 9:16 AM CDT) Glucose, POC 172 70 - 199 mg/dL Comment:Glu2: RN/ Notified Glucose comment 1 Glu2: RN/MD Notified [facility] Blood 09/16/2024 9:16 AM CDT 09/16/2024 9:16 AM CDT us Sherman Veras MD LAB POCT ORDERABLES - DEVICE Final Result [facility] Department [place] [address] * DE AN ELECTIVE ENDOTRACHEAL AIRWAY, DE AN PROCEDURE PLACEHOLDER (09/16/2024 7:55 AM CDT) Narrative Pallavi De Paz CRNA - 09/16/2024 7:55 AM CDT Pallavi De Paz CRNA 09/16/2024 7:56 AM Airway Patient location: OR Indications for airway management: anesthesia Difficult airway: no Staff: Placed by: SOAKING PITS SUPERVISOR: Pallavi De Paz CRNA Emergent airway documentation: Risks and benefits discussed: yes Consent obtained: yes Consent given by: patient Airway prep: Preoxygenated: yes Patient position: sniffing Mask difficulty assessment: 0 - not attempted Spontaneous ventilation during airway: absent Sedation level during airway: GA Final airway details: Final airway type: endotracheal airway Tube type: ETT ETT size: 7.0 mm Cuffed: yes Technique used for successful ETT placement: video laryngoscopy Devices/Methods used in placement: intubating stylet Insertion site: oral Blade type: Melva Video blade type: De Blade size: 4 Cormack-Lehane (direct): grade IIa - partial view of glottis Cormack-Lehane (video): grade IIa - partial view of glottis Cuff volume: 6 mL Cuff inflated with: air ETT to lips: 22 cm Placement verified by: auscultation and CO2 detection Airway secured with: silk tape Number of attempts: 1 us Benton Kennedy MD ANESTHESIA ORDERABLES Janeen l Result * DE AN PROCEDURE PLACEHOLDER (09/16/2024 7:42 AM CDT) Narrative Benton Kennedy MD - 09/16/2024 7:42 AM CDT Benton Kennedy MD 09/16/2024 7:42 AM Peripheral Block Patient location during procedure: pre-op holding Reason for block: post-op pain management per surgeon request Ultrasound image in chart or stored: yes Block type: single shot Laterality: right Block type: PECS II Staff: Placed by: Anesthesiologist: Benton Kennedy MD Procedure prep: Preprocedure checklist: patient identified, procedure contraindications assessed, site marked, procedure consent, surgical consent, IV checked, risks, benefits and alternatives discussed, monitors and equipment checked and timeout performed Patient position: supine and head of bed elevated Procedure performed while patient: sedate with meaningful contact Monitoring: ECG, oximetry and blood pressure Supplemental O2: nasal cannula Prep solution: chlorhexidine/alcohol PPE: provider hat/mask, sterile gloves and sterile probe cover and gel Peripheral nerve block: Technique: ultrasound guided Needle type: insulated, short-bevel and echogenic Needle gauge: 22 G Needle length: 80 mm Injection assessment: injection made incrementally with constant monitoring, negative aspiration for heme, no paresthesias noted, normal resistance to injection and see flowsheet for medication details Assessment: Block success: full evaluation pending Events: patient tolerated procedure well with no complications us Benton Kennedy MD ANESTHESIA ORDERABLES Janeen l Result * DE AN PROCEDURE PLACEHOLDER (09/16/2024 7:41 AM CDT) Narrative Benton Kennedy MD - 09/16/2024 7:41 AM CDT Benton Kennedy MD 09/16/2024 7:42 AM Peripheral Block Patient location during procedure: pre-op holding Reason for block: post-op pain management per surgeon request Ultrasound image in chart or stored: yes Block type: single shot Laterality: right Block type: brachial plexus - interscalene Staff: Placed by: Anesthesiologist: Benton Kennedy MD Procedure prep: Preprocedure checklist: patient identified, procedure contraindications assessed, site marked, procedure consent, surgical consent, IV checked, risks, benefits and alternatives discussed, monitors and equipment checked and timeout performed Patient position: supine and head of bed elevated Procedure performed while patient: sedate with meaningful contact Monitoring: ECG, oximetry and blood pressure Supplemental O2: nasal cannula Prep solution: chlorhexidine/alcohol PPE: provider hat/mask, sterile gloves and sterile probe cover and gel Peripheral nerve block: Technique: ultrasound guided Needle type: insulated, short-bevel and echogenic Needle gauge: 22 G Needle length: 80 mm Injection assessment: injection made incrementally with constant monitoring, local visualized surrounding nerve on ultrasound, negative aspiration for heme, no paresthesias noted and normal resistance to injection Assessment: Block success: full evaluation pending Events: patient tolerated procedure well with no complications Benton Kennedy MD ANESTHESIA ORDERABLES Janeen l Result * POCT glucose (09/16/2024 6:46 AM CDT) Pathologist [facility] Glucose, POC 136 70 - 199 mg/dL Blood 09/16/2024 6:46 AM CDT 09/16/2024 6:46 AM CDT Sherman Veras MD LAB POCT ORDERABLES - DEVICE Final Result [facility] Department [place] [address] * Fu Visual Field - OU - Both Eyes (09/11/2024 10:35 AM CDT) [facility] Pattern Deviation OS 4.31 db CONTINUUM Pattern Deviation OD 8.87 db CONTINUUM Mean Deviation OS -1.42 db CONTINUUM Mean Deviation OD -2.80 db CONTINUUM Anatomical Region Laterality Modality Head Other Narrative 09/11/2024 5:25 PM CDT Right Eye Fixation was good. Cooperation was good. Reliability was good. Mean Deviation was -2.80 db. Pattern Deviation was 8.87 db. Left Eye Fixation was good. Cooperation was good. Reliability was borderline. Mean Deviation was -1.42 db. Pattern Deviation was 4.31 db. Notes Visual gauthier appear full with likely rim artifact, both eyes Silas Dunham MD OPHTH VISUAL FIELD F inal Result * OCT, Retina - OU - Both Eyes (09/11/2024 10:34 AM CDT) Central Macular Thickness OS 239 mircometers CONTINUUM Central Macular Thickness OD 265 micrometers CONTINUUM Anatomical Region Laterality Modality Head Other Narrative 09/11/2024 5:25 PM CDT Right Eye Quality was good. Scan locations included subfoveal. Progression has been stable. Findings include intraretinal fluid. Macular thickness was 265 micrometers. Left Eye Quality was good. Scan locations included subfoveal. Progression has been stable. Findings include normal observations. Macular thickness was 239 mircometers. Notes GCL: OD: 78 OS: 58 GCL stable from previous, with known GCL thinning, left eye Silas Dunham MD OPHTH TOMOGRAPHY Fin al Result * OCT, Optic Nerve - OU - Both Eyes (09/11/2024 10:31 AM CDT) RNFL OS 78 micrometers CONTINUUM RNFL OD 96 micrometers CONTINUUM Anatomical Region Laterality Modality Head Other Narrative 09/11/2024 5:25 PM CDT Right Eye Reliability was good. Temporal progression was improved. Temporal thickness was normal. Superior progression was improved. Superior thickness was normal. Nasal progression was improved. Nasal thickness was showing abnormal thickness. Inferior progression was improved. Inferior thickness was normal. Average RNFL thickness 96 micrometers. Left Eye Reliability was good. Temporal progression was improved. Temporal thickness was showing abnormal thinning. Superior progression was improved. Superior thickness was normal. Nasal progression was improved. Nasal thickness was normal. Inferior progression was improved. Inferior thickness was normal. Average RNFL thickness 78 micrometers. Notes Decreased RNFL thickness, both eyes, suggestive of improving optic nerve edema Silas Dunham MD OPHTH TOMOGRAPHY Fin al Result * MSK MR Outside Reference (09/03/2024 2:44 PM CDT) Impressions [facility] - 09/03/2024 2:44 PM CDT These images are for Reference purposes only and have not been reviewed by [facility] Radiology. There will be no report generated by a [facility] Radiologist. Narrative RAD_PACS[facility] - 09/03/2024 2:44 PM CDT EXAMINATION: Images For Reference Purposes Only Sherman Veras MD IMG MRI PROCEDURES Fi nal Result [facility] * XR Shoulder Right 2 or More Views (09/03/2024 9:18 AM CDT) Anatomical Region Laterality Modality Upper Extremities, Shoulder Right Comp uted Radiography 09/03/2024 11:1 1 AM CDT Impressions 09/03/2024 5:48 PM CDT 1. Mild glenohumeral and moderate acromioclavicular osteoarthritis with a small subacromial spur. Dictated by: Edi Cavanaugh M.D. The radiology attending physician has personally reviewed this study, and had reviewed and/or edited this written report and agrees with it. Electronically signed by: Godwin Lombardo M.D. Narrative 09/03/2024 5:48 PM CDT EXAMINATION: XR SHOULDER RIGHT 2 OR MORE VIEWS HISTORY: Right shoulder pain FINDINGS: 4 radiographs of the shoulder. Comparison with CT 03/04/2021. No acute fracture or dislocation. Normal alignment. Mild right shoulder glenohumeral arthritis. Moderate right acromioclavicular osteoarthritis. Small subacromial spur. Procedure Note Godwin Lombardo MD - 09/03/2024 EXAMINATION: XR SHOULDER RIGHT 2 OR MORE VIEWS HISTORY: Right shoulder pain FINDINGS: 4 radiographs of the shoulder. Comparison with CT 03/04/2021. No acute fracture or dislocation. Normal alignment. Mild right shoulder glenohumeral arthritis. Moderate right acromioclavicular osteoarthritis. Small subacromial spur. IMPRESSION: 1. Mild glenohumeral and moderate acromioclavicular osteoarthritis with a small subacromial spur. Dictated by: Edi Cavanaugh M.D. The radiology attending physician has personally reviewed this study, and had reviewed and/or edited this written report and agrees with it. Electronically signed by: Godwin Lombardo M.D. us Sherman Veras MD IMG XR PROCEDURES Fin al Result * Fluorescein Angiography, OU Transit OD (08/29/2024 10:24 AM CDT) Anatomical Region Laterality Modality Head Fundus Photograp hy Narrative 08/29/2024 10:24 AM CDT Time Out Informed consent was obtained after all risks, benefits and alternatives were explained to the patient. The patient understood, agreed and wished to proceed. Timeout was completed verifying the patient, procedure, laterality and allergies. Right Eye Quality was good. Left Eye Quality was good. FA - Lot Number and Expiration Date [id number] 01/10/2027. Notes Color photographs demonstrate intraretinal hemorrhages throughout the posterior pole both eyes. Auto fluorescence demonstrates no optic nerve head hyperfluorescence. Angiography demonstrates leaking microaneurysms throughout the posterior poles of both eyes. There is no active neovascularization either eye. There was no significant leakage from the optic nerve in either eye Mary Camarillo MD OPHTH PHOTOGRAPHY Final Re sult * OCT, Retina - OU - Both Eyes (08/29/2024 10:22 AM CDT) Anatomical Region Laterality Modality Head Optical Coherenc e Tomography Narrative 08/29/2024 10:22 AM CDT Right Eye Quality was good. Scan locations included subfoveal. Progression has no prior data. Findings include intraretinal fluid. Left Eye Quality was good. Scan locations included subfoveal. Progression has no prior data. Findings include normal observations. Mary Camarillo MD OPHTH TOMOGRAPHY Final Res ult * IR Lumbar Puncture, Diagnostic incl Fluoro Guidance (07/18/2024 12:33 PM CDT) Anatomical Region Laterality Modality Spine N/A Radio Fluoroscop y 07/18/2024 12:3 4 PM CDT Impressions 07/18/2024 12:46 PM CDT Successful diagnostic lumbar puncture under fluoroscopic guidance. Dictated by: Supriya Beck D.O. The radiology attending physician has personally reviewed this study, and had reviewed and/or edited this written report and agrees with it. Electronically signed by: Kyler Booth MD Narrative 07/18/2024 12:46 PM CDT EXAMINATION: Diagnostic fluoroscopically guided lumbar puncture HISTORY: ICP elevation suspected papilledema TECHNIQUE: The risks and benefits of the lumbar puncture including, but not limited to infection, bleeding, spinal headache, cerebrospinal fluid (CSF) leak requiring blood patch procedure, and irritation or damage to nerves causing pain or permanent injury were discussed with the patient. The patient was given the opportunity to ask questions. The patient acknowledged understanding, gave verbal and written consent, and wished to proceed. A time-out was performed prior to the procedure. Attending physician: Dr. Kyler Booth MD was present for the entire procedure. The L4-L5 level was localized with fluoroscopy. The ribs were counted and this level confirmed. The skin overlying this level was sterilely prepped, draped, and infiltrated with 1% lidocaine for local anesthesia. Under intermittent fluoroscopic guidance, a 22 gauge 3.5 inch Quincke spinal needle was inserted into the thecal sac at this level. Clear CSF was identified. A total of 17 ml of CSF was removed and placed into 5 specimen tubes. The patient was then transferred to the nursing area for further observation and 1 hour of bedrest. OPENING PRESSURE: 22 cm H20 LLD Procedure Note Kyler Booth MD - 07/18/2024 EXAMINATION: Diagnostic fluoroscopically guided lumbar puncture HISTORY: ICP elevation suspected papilledema TECHNIQUE: The risks and benefits of the lumbar puncture including, but not limited to infection, bleeding, spinal headache, cerebrospinal fluid (CSF) leak requiring blood patch procedure, and irritation or damage to nerves causing pain or permanent injury were discussed with the patient. The patient was given the opportunity to ask questions. The patient acknowledged understanding, gave verbal and written consent, and wished to proceed. A time-out was performed prior to the procedure. Attending physician: Dr. Kyler Booth MD was present for the entire procedure. The L4-L5 level was localized with fluoroscopy. The ribs were counted and this level confirmed. The skin overlying this level was sterilely prepped, draped, and infiltrated with 1% lidocaine for local anesthesia. Under intermittent fluoroscopic guidance, a 22 gauge 3.5 inch Quincke spinal needle was inserted into the thecal sac at this level. Clear CSF was identified. A total of 17 ml of CSF was removed and placed into 5 specimen tubes. The patient was then transferred to the nursing area for further observation and 1 hour of bedrest. OPENING PRESSURE: 22 cm H20 LLD IMPRESSION: Successful diagnostic lumbar puncture under fluoroscopic guidance. Dictated by: Supriya Beck D.O. The radiology attending physician has personally reviewed this study, and had reviewed and/or edited this written report and agrees with it. Electronically signed by: Kyler Booth MD Silas Dunham MD IMG FLUOROSCOPY PROC EDURES Final Result * (ABNORMAL) Cell count w/reflex diff, CSF (07/18/2024 11:50 AM CDT) Tube Number, CSF Tube 1 Color, CSF Colorless Colorless [facility] Clarity, CSF Clear Clear [facility] Xanthochromia , CSF Absent Absent [facility] Nucleated cells, CSF 0 0 - 5 /cumm [facility] B[facility] RBC, CSF 34(H) 0 - 0 /cumm [facility] CSF 07/18/2024 11:5 0 AM CDT 07/18/2024 1:39 PM CDT Silas Dunham MD LAB BODY FLUIDS AND STOOLS ORDERABLES Final Result Performing Organization Address [facility] Co de Phone Number [facility] Department [place] [address] * Flow Leukemia/Lymphoma CSF (07/18/2024 11:50 AM CDT) Atwood Stain Test Completed Leukemia/Lymp syeda Result See separate Surgical Pathology report. [facility] CSF 07/18/2024 11:5 0 AM CDT 07/18/2024 3:32 PM CDT Silas Dunham MD LAB PATHOLOGY ORDERA BLES Final Result Performing Organization Address [facility]/ZIP Co de Phone Number [facility] Department [place] [address] * Multiple sclerosis (MS) profile with reflex to oligoclonal bands, CSF/serum (07/18/2024 11:50 AM CDT) Pass Christian free light chain, CSF 0.0133 <0.1000 mg/dL [facility] Comment: Negative. The kappa free light concentration measured in CSF is lower than the threshold associated with multiple sclerosis. Clinical correlation recommended. ADDITIONAL INFORMATION This test has been modified from the gold letterer's instructions. Its performance characteristics were determined by [facility] in a manner consistent with CLIA requirements. This test has not been cleared or approved by the U.S. Food and Drug Administration. A [facility] study published in 2018 with 325 patients suggested that a kappa free light chain concentration in CSF greater than or equal to 0.06 mg/dL has 92% clinical sensitivity in the diagnosis of multiple sclerosis (ref 1). A second, larger [facility] study with 1355 patients published in 2020 showed that a kappa CSF concentration greater than or equal to 0.06 mg/dL had approximately 89% sensitivity. When kappa was greater than or equal to 0.1 mg/dL it had similar sensitivity (87%) to the finding of 2 unique CSF oligoclonal bands (89%) (ref 2). Given the difference in thresholds based on these studies and highest sensitivity at the threshold of 0.06mg/dL, any CSF kappa free light chain result greater than or equal to 0.06 mg/dL will reflex to oligoclonal banding when the multiple sclerosis profile tests are ordered. A result less than 0.06 mg/dL is considered negative. A result between 0.06 and 0.099 mg/dL is considered borderline; look for oligoclonal banding test results. A result greater than or equal to 0.1 mg/dL is considered positive; look for oligoclonal banding test results. References: 1.Leann KM, Gaby E, Cuco SC, Prince DE LEÓN, Kvng DL, Cirilo TERRELL, et al. CSF free light chain identification of demyelinating disease: comparison with oligoclonal banding and other CSF indexes. Clin Chem Lab Med. 2018;56(7):1071-80. 2.Wesley RS, Cuco SC, Jimbo A, Amber B, Kvng DL, Cirilo TERRELL, et al. CSF Pass Christian Free Light Chains: Cutoff Validation for Diagnosing Multiple Sclerosis. [facility] Clin Proc. 2020; D[address]884-0989(36)52027-2. doi: 10.1016/j.mayocp.2020.09.014. Blood/Cerebrospi nal fluid 07/18/2024 11:50 AM CDT 07/18/2024 2:51 PM CDT Silas Dunham MD LAB BLOOD ORDERABLES Final Result Performing Organization Address [facility] de Phone Number [facility] [place] [address] [place] [facility] * Oligoclonal banding (07/18/2024 11:50 AM CDT) [facility] Oligoclonal bands, CSF 0 bands [place] [facility] Oligoclonal bands 0 bands [facility] Oligoclonal bands, interp 0 <2 bands [facility] Comment: The oligoclonal band assay detected no unique IgG bands in the CSF. This is a negative result. Test Performed by: [place] [address] Media Relations Manager: Barbara Jackson Ph.D.; CLIA# [id number] Blood/Cerebrospi nal fluid 07/18/2024 11:50 AM CDT 07/18/2024 2:51 PM CDT Silas Dunham MD LAB BLOOD ORDERABLES Final Result Performing Organization Address [facility] Co de Phone Number [facility] [place] [address] [place] [facility] * (ABNORMAL) IgG index, CSF and blood (07/18/2024 11:50 AM CDT) Immunoglobulin G 656(L) 767 - 1590 mg/dL [facility] Albumin 4400 3500 - 5000 mg/dL [facility] Comment: Test Performed by: [facility] [address] [place] [address] Media Relations Manager: Barbara Jackson Ph.D.; CLIA# [id number] Test Performed by: [facility] [address] [place] [address] Media Relations Manager: Barbara Jackson Ph.D.; CLIA# [id number] IgG, CSF 1.6 <=8.1 mg/dL [facility] Albumin, CSF 21.2 <=27.0 mg/dL [facility] CSF IgG/albumin ratio, CSF 0.08 <=0.21 [facility] IgG/Albumin Ratio, Serum 0.15 <=0.40 [facility] IgG index, CSF 0.53 <=0.70 [facility] IgG synthesis rate, CSF 0.00 <=12 mg/24H [facility] Albumin quotient, CSF/Serum 4.82 <=14 [facility] Blood/Cerebrospi nal fluid 07/18/2024 11:50 AM CDT 07/18/2024 2:51 PM CDT us Silas Dunham MD LAB BODY FLUIDS AND STOOLS ORDERABLES Final Result Performing Organization Address City/[facility]/ZIP Co de Phone Number [facility] Department [place] [address] [place] [facility] * Protein, total, CSF (07/18/2024 11:50 AM CDT) Pathologist [facility] Protein, CSF 40 5 - 45 mg/dL Comment:Cells present. Resul ts may be falsely elevated. CSF 07/18/2024 11:5 0 AM CDT 07/18/2024 2:00 PM CDT Silas Dunham MD LAB BODY FLUIDS AND STOOLS ORDERABLES Final Result [facility] Department [place] [address] * Glucose, CSF (07/18/2024 11:50 AM CDT) Glucose, CSF 108 mg/dL Comment: Cells present. Results may be falsely elevated. Reference Interval Information: CSF Glucose should be 60-66% of the most current plasma glucose concentration (milligrams/deciliter) CLIN. CHEM. 41/3, 343-360 (1994), Clinical Utility of Biochemical Analysis of Cerebrospinal Fluid, Hung Sosa and Jatinder Cervantes. Current interpretive data was last revised on 2018. CSF 07/18/2024 11:5 0 AM CDT 07/18/2024 2:00 PM CDT Silas Dunham MD LAB BODY FLUIDS AND STOOLS ORDERABLES Final Result Performing Organization Address City/State/[facility] Co de Phone Number [facility] Department [place] [address] * Surgical pathology (07/18/2024 11:50 AM CDT) Cerebrospinal Fluid (Cytology) 07/18/2024 11:50 AM CDT 07/18/2024 1:59 PM CDT Narrative 07/19/2024 5:58 PM CDT EPIC results best viewed via link to PDF [facility] Bianca Kramer [facility] [place] [address] Note to Patients: This report may contain a detailed description of human tissue sent by a health care provider to the laboratory for pathologic evaluation. The content of this report is essential for diagnosis and may provide important critical findings. This information may be unfamiliar to patients to review without a medical professional present. It is advised that the patient review this report in the presence of a health care provider who can answer questions and explain the details. SURGICAL PATHOLOGY REPORT FINAL Patient Name: AGAPITO MUSTAFA Gender: M : 1960 (Age: 63) Address: [address] [place] [id number] Hospital #: [id number] Taken:07/18/2024 Received:07/18/2024 Reported: 07/19/2024 Patient Type: [facility] Ancillary Service: Laboratory Location: Physician(s): Silas Dunham M.D. Diagnosis: A. Cerebrospinal fluid for flow cytometry: - Too few cells to perform analysis. /07/19/2024 14:38 By this signature, I attest that the above diagnosis is based upon my personal examination of the slides(and/or other material indicated in the diagnosis). Miguel Lawrence M.D., Ph.D. Report Electronically Reviewed and Signed Out By Miguel Lawrence M.D., Ph.D. 07/19/2024 17:58:07 Microscopic Description and Comment: Specimen quality: paucicellular Flow cytometry was not performed due to insufficient viable cell counts. A Atwood-Giemsa stained cytospin from the flow cytometry specimen was examined for internal quality control head purposes. Rare peripheral blood elements seen. Paola Evangelista M.D. 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 Operative procedure: lumbar puncture. Specimen(s) Received: A: Cerebrospinal fluid for flow cytometry Gross Description: { Not Entered } Gross Pathologist: No pathologist assigned FLOW CYTOMETRY: LEUKEMIA PANEL Specimen information: Fluid: csf Cell count: <0.01x10^6 Viability: 100 Too few cells to perform flow cytometric analysis By this signature, I attest that the above diagnosis is based upon my personal examination of the slides(and/or other material). Addenda/Procedures The performance characteristics of some immunohistochemical stains, fluorescence in-situ hybridization tests and immunophenotyping by flow cytometry cited in this report (if any) were determined by the Surgical Pathology and Flow Cytometry Departments at [facility] as part of an ongoing manufacturing quality manager program and in compliance with federally mandated regulations drawn from the Clinical Laboratory Improvement Act of 1988 (CLIA '88). Some of these tests rely on the use of analyte specific reagents and are subject to specific labeling requirements by the US Food and Drug Administration. Such diagnostic tests may only be performed in a facility that is certified by the Department of Health and Human Services as a high complexity laboratory under CLIA '88. The FDA has determined that such clearance or approval is not necessary. This test is used for clinical purposes. It should not be regarded as investigational or for research. Nevertheless, federal rules concerning the medical use of analyte specific reagents require that the following disclaimer be attached to the report: This test was developed and its performance characteristics determined by the Surgical Pathology and Flow Cytometry Departments of [facility]. It has not been cleared or approved by the U. S. Food and Drug Administration. IMAGES AND SCANNED DOCUMENTS, IF INCLUDED, ONLY VIEWABLE IN PDF VERSION OF REPORT us Silas Dunham MD LAB PATHOLOGY ORDERA BLES Final Result * Cytology (07/18/2024 11:39 AM CDT) Cerebrospinal Fluid (Cytology) 07/18/2024 11:39 AM CDT 07/18/2024 1:51 PM CDT Narrative 07/19/2024 5:09 PM CDT EPIC results best viewed via link to PDF [facility] Bianca Kramer Laboratory [place] [address] Note to Patients: This report may contain a detailed description of human tissue sent by a health care provider to the laboratory for pathologic evaluation. The content of this report is essential for diagnosis and may provide important critical findings. This information may be unfamiliar to patients to review without a medical professional present. It is advised that the patient review this report in the presence of a health care provider who can answer questions and explain the details. CYTOPATHOLOGY REPORT FINAL Patient Name: AGAPITO MUSTAFA Gender: [place] : 1960 (Age: 63) Address: [address] [place] [id number] Hospital #: [id number] Taken:07/18/2024 Received:07/18/2024 Reported: 07/19/2024 Patient Type: [facility] Ancillary Service: UNKNOWN Location: Physician(s): Silas Dunham M.D. FINAL DIAGNOSIS A. Cerebrospinal fluid: - Negative for malignancy hrk/07/19/2024 17:09 By this signature, I attest that the above diagnosis is based upon my personal examination of the slides(and/or other material indicated in the diagnosis). Doretha Rodriguez M.D. Report Electronically Reviewed and Signed Out By Doretha Rodriguez M.D. 07/19/2024 17:09:14 Oseas Wheat, [facility](ASCP), [facility] Gross Description A. Cerebrospinal fluid: 5 ml clear fluid - 2 Diff-Quik stained cytospins. (kg) Clinical Diagnosis and History The patient is a 63 year old man with papilledema. REPORT IMAGES AND SCANNED DOCUMENTS, IF INCLUDED, ONLY VIEWABLE IN PDF VERSION OF REPORT The performance characteristics of some immunohistochemical stains, in-situ hybridization and fluorescence in-situ hybridization tests and immunophenotyping by flow cytometry cited in this report (if any) were determined by the Surgical Pathology and Flow Cytometry Departments at [facility] as part of an ongoing manufacturing quality manager program and in compliance with federally mandated regulations drawn from the Clinical Laboratory Improvement Act of 1988 (CLIA '88). Some of these tests rely on the use of analyte specific reagents and are subject to specific labeling requirements by the US Food and Drug Administration. Such diagnostic tests may only be performed in a facility that is certified by the Department of Health and Human Services as a high complexity laboratory under CLIA '88. The FDA has determined that such clearance or approval is not necessary. This test is used for clinical purposes. It should not be regarded as investigational or for research. Nevertheless, federal rules concerning the medical use of analyte specific reagents require that the following disclaimer be attached to the report: This test was developed and its performance characteristics determined by the Surgical Pathology and Flow Cytometry Departments of [facility]. It has not been cleared or approved by the U. S. Food and Drug Administration. Silas Dunham MD LAB CYTOLOGY ORDERAB LES Final Result * POCT lipid panel (02/13/2024 4:52 PM WOOD STAINER) Cholesterol, POC 140 mg/dL Comment:GLU = 166 HDL, POC 57 mg/dL Triglycerides, POC 87 mg/dL LDL Cholesterol POC 66 mg/dL Chol/HDL Ratio, POC 1.2 Non-HDL Cholesterol, POC 83 mg/dL Cholesterol Total, POC 140 mg/dL Capillary blood 02/13/2024 4 :52 PM WOOD STAINER us Agapito Holt MD POINT OF CARE TEST ORDER TRUNG Final Result * PSA screen (03/05/2021 5:09 AM WOOD STAINER) PSA-Total 1.29 <=5.40 ng/mL [facility] Comment: Interpretive Data AGE SEX REFERENCE INTERVAL 0 minutes-150 years Female None 0 minutes-49 years Male None 50-59 years Male 0-3.90 60-69 years Male 0-5.40 70-79 years Male 0-6.20 80-150 years Male 0-6.20 Current interpretive data last revised 2017. Blood 03/05/2021 5:09 AM WOOD STAINER 03/05/2021 6:29 AM WOOD STAINER us Sweta Salvador MD PhD LAB BLOOD ORDERABLES F inal Result [facility] Department [place] [address] * eGFR (03/04/2021 4:36 PM WOOD STAINER) eGFR >90 90 - 130 mL/min/1. 73 m2 [facility] Comment: Interpretive Data Reference Interval Normal >/= [...] last reviewed 2021. Blood 03/04/2021 4:36 PM WOOD STAINER 03/04/2021 4:54 PM WOOD STAINER us Sweta Salvador MD PhD LAB BLOOD ORDERABLES F inal Result [facility] [place] [address] * CT Chest Abdomen Pelvis W Contrast (03/04/2021 3:23 PM WOOD STAINER) Anatomical Region Laterality Modality Body N/A Computed Tomogra phy 03/04/2021 4:18 PM WOOD STAINER Impressions 03/04/2021 11:38 PM WOOD STAINER 1. Subtle 2.2 cm possible lesion in [...] Jose Levine MD Narrative 03/04/2021 11:38 PM WOOD STAINER EXAMINATION: Computed tomography of the chest, abdomen [...] * (ABNORMAL) Hemoglobin A1c (01/21/2020 3:20 PM WOOD STAINER) Hgb A1C 8.8(H) 4.0 - 5.6 % [facility] Estimated Average Glucose 206 mg/dL [facility] Comment: The ADA recommends reporting an estimated Average Glucose (eAG) with all Hemoglobin A1c results using the equation derived from a study of 507 normal and diabetic adults. Minority populations were underrepresented and children were not included. (Diabetes Care 31:5328-7911, 2008). The eAG is not equivalent to a fasting glucose. Blood specimen (specimen) 01/21/2020 3:20 PM WOOD STAINER 01/21/2020 3:24 PM WOOD STAINER us Molly Khan MD LAB BLOOD ORDERABLES Final Result Performing Organization Address City/State/ZIP Co ri Phone Number [facility] [address] Department [place] [address] from Last 3 Months or Most Recently Relevant to Health Maintenance Insurance MEDICARE [facility] MEDICARE [facility] Advance Directives For more information, please contact: [phone] Documents on File Type Date Recorded Patient Box Stacker Expl anation ADVANCE DIRECTIVE 09/20/2024 4:24 PM [employer] * Full Code (Latest Code Status on File) Date Activated Date Inactivated Comments 03/04/2021 9:56 AM 03/05/2021 5:22 PM * Full Code Date Activated Date Inactivated Comments 01/21/2020 10:42 AM 01/22/2020 3:09 AM Care Teams Play Therapist Relationship Specialty Start Date End Date Jose M Jim DO [address] [address] PCP - General Internal Medicine 07/03/24 Geronimo Ji MD Referring Physician Cardiovascular Disease 01/21/20
--- OUTSIDE RECORDS SUMMARY | 2024-10-12 06:53 | XMS_ITS | Clinical Summary ---
Author Organization [facility] Address [address] [place] [place] [address] Care Team Providers Care Anhydrous Ammonia Production Supervisor Name Role Phone Brown Gutierrez DO Primary Care Provider [phone] Source Comments [facility],non-owned Affiliates and Associated Physician Practices is amultiple site organization consisting of ambulatory clinics and hospital sitesin [place], [place], [place]. This disclosure is being madepursuant to the Care Everywhere program and may not contain all information available regarding this patient. Last updated 17.[facility] Immunizations Immunization Administration Dates Next Due INFLUENZA VACCINE, QUADR. 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 Gender Identity Not on file Sexual Orientation [...] TESTING 1960 MEDICARE AWV 12 MONTHS 1958 HEPATITIS C SCREENING 09/20/1976 DTAP/TDAP/TD VACCINES (1 - Tdap) 1977 PNEUMOCOCCAL VACCINE 50+ (1 of 1 - PCV) 2008 ZOSTER VACCINE (1 of 2) 2008 COVID-19 VACCINE (2023-2 5 season) 2023 DEPRESSION SCREENING 03/13/2024 INFLUENZA VACCINE (#1) 2024 02/02/2020 Respiratory Syncytial Virus (RSV) Vaccine Pt: or [...] to complete this topic MENINGOCOCCAL (Group B) VACC INE SHARED DECISION-MAKING Aged Out No longer eligibl e based on patient's age to complete this topic MENINGOCOCCAL GROUPS A/C/Y/W VACCINE Aged Out No longer eligible b ased on patient's age to complete this topic Insurance [facility] MEDICARE [facility] BASIC ACC MED [place] [id number] SELF PAY NO INSURANCE Member Subscriber Plan / Payer (Ef fective for All Dates) Name:Basim Rodrigues Member ID:Not on file Relation to Subscriber:Not on file Name:BASIM RODRIGUES Subscriber ID:Not on file (Home) Address: [address] [place] [address] Payer ID:Not on file Group ID:Not on file Type:Self Pay Address: [place], [place] [employer] Care Teams Anhydrous Ammonia Production Supervisor Relationship Specialty Start Date End Date Brown Gutierrez DO [address] [facility] [address] [place], [place] [id number] PCP - General 02/15/21
--- OUTSIDE RECORDS SUMMARY | 2024-10-12 06:53 | XMS_ITS | Encounter Summary ---
Author Organization [facility] Address [address] [place] [address] Care Team Providers Care Cigarette Packing Machine Operator Name Role Phone Unavailable Primary Care Provider Unavailabl e Encounter Details Date Type Department Care Team (Late st Contact Info) Description 06/29/2000 Outpatient Historical [facility] Anthony Miller MD Social History Tobacco Use Types Packs/Day Years Used Date Smoking Tobacco: Never Assessed Sex and Gender Information Value Date Recorded Sex Assigned at Not on file Legal Sex Male 4:01 AM PSYCH ARNP Gender Identity Not on file Sexual Orientation Not on file documented as of this encounter Plan of Treatment Not on file documented as of this encounter Visit Diagnoses Not on filedocumented in this encounter
--- OUTSIDE RECORDS SUMMARY | 2024-10-12 06:53 | XMS_ITS | Encounter Summary ---
Author Organization [facility] Address [address] [place] [address] Phone Care Team Providers Care Dental Scheduling Coordinator Name Role Phone Brown Gutierrez MD Primary Care Provider [phone] Geronimo Ji MD Unavailable Jose M Jim DO Primary Care Provider [phone] Encounter Details Date Type Department Care Team (Late st Contact Info) Description 03/04/2021 Ophth Exam [facility] Ophthalmology [address] [place] [address] [address] [place] [address] Amos Turner MD [address] [facility] [address] [place] [address] Social History Tobacco Use Types [...] on file Legal Sex Male 7:59 AM CREW 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 Gender Identity Not on file Sexual Orientation Not on file 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 Not on file Not [...] Normal Conjunctiva/Sclera White and quiet White and ttay et Cornea Clear Clear Anterior Chamber Deep and quiet Deep and quiet Iris Round and reactive Round and keri ctive Lens NSC NSC Vitreous Normal Normal Care Teams Dental Scheduling Coordinator Relationship Specialty Start Date End Date Brown Gutierrez MD [address] [place] [address] PCP - General Internal Medicine 01/20/20 07/02/24 Jose M Jim DO [address] [place] [address] PCP - General Internal Medicine 07/03/24 Geronimo Ji MD [address] [place] [address] Referring Physician Cardiovascular Disease 01/21/20 documented as of this encounter
--- OUTSIDE RECORDS SUMMARY | 2024-10-12 06:53 | XMS_ITS | Encounter Summary ---
Author Organization [facility] Address 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
--- OUTSIDE RECORDS SUMMARY | 2024-10-12 06:53 | XMS_ITS | Encounter Summary ---
Author Organization [facility] Address [address] [place] [address] Care Team Providers Care Dairy Farm Manager Name Role Phone Unavailable Primary Care Provider Unavailabl e Encounter Details Date Type Department Care Team (Late st Contact Info) Description 04/27/2000 Outpatient Historical [facility] Anthony Miller MD Social History Tobacco Use Types Packs/Day Years Used Date Smoking Tobacco: Never Assessed Sex and Gender Information Value Date Recorded Sex Assigned at Not on file Legal Sex Male 4:01 AM INSURANCE TERRITORY MANAGER Gender Identity Not on file Sexual Orientation Not on file documented as of this encounter Plan of Treatment Not on file documented as of this encounter Visit Diagnoses Not on filedocumented in this encounter
--- OUTSIDE RECORDS SUMMARY | 2024-10-12 06:53 | XMS_ITS | Clinical Summary ---
Author Organization [facility] [address] [place] [address] Care Team Providers Care Location Director Name Role Phone Geronimo Ji MD Unavailable Jose M Jim DO Primary Care Provider [phone] Allergies No known active allergies Medications magnesium oxide (MAG-OX) 400 mg (241.3 mg elemental magnesium) tabletIndications: hypomagnesemia Take 1 tablet (400 mg total) by mouth 2 (two) times a day Active omeprazole (PriLOSEC) 40 mg capsuleIndications :Treatment of Non-Bleeding Gastric Disorder Take 1 capsule (40 mg total) by mouth applied behavior specialist before breakfast Active fluticasone propionate (FLONASE) 50 mcg/actuation nasal sprayIndications:A llergic Conjunctivitis Administer 1 spray into each nostril applied behavior specialist before breakfast Active allopurinoL (ZYLOPRIM) 300 mg tabletIndications: prevention of acute gout attack Take 1 tablet (300 mg total) by mouth applied behavior specialist before breakfast Active semaglutide (Ozempic) 1 mg/dose (2 mg/1.5 mL) pen injectorIndication s:type 2 diabetes mellitus Inject 0.75 mL (1 mg total) under the skin every 7 days Monday Active metFORMIN (GLUCOPHAGE) 1,000 mg tabletIndications: type 2 diabetes mellitus Take 1 tablet (1,000 mg total) by mouth 2 (two) times a day with meals 05/26/19 Active empagliflozin (JARDIANCE) 25 mg tabletIndications: type 2 diabetes mellitus Take 1 tablet (25 mg total) by mouth applied behavior specialist before breakfast Active ramipriL (ALTACE) 10 mg capsuleIndications :heart Take 1 capsule (10 mg total) by mouth applied behavior specialist before breakfast 02/09/20 22 Active nitroglycerin (NITROSTAT) [...] Hyperlipidemia Hypertension NSTEMI (non-ST elevated myocardial infarction) Encounters Date Type Department Care Team Description 09/26/2024 12:30 PM CDT Office Visit [facility] Orth[facility]edic Surgery [address] [place] [address] 1st Floor [address] [place] [address] Sherman Veras MD Nontraumatic complete tear of right rotator cuff (Primary Dx) 09/16/2024 7:30 AM CDT - 09/16/2024 9:15 AM CDT Surgery [facility] Surgery at [address] [address] Sherman Veras MD RIGHT SHOULDER ARTHROSCOPIC DEBRIDEMENT 09/16/2024 7:27 AM CDT Anesthesia Event [facility] Surgery at [address] [address] Benton Kennedy MD Wiethuchter, Kelli P., NP 09/16/2024 6:15 AM CDT - 09/16/2024 9:54 AM CDT Hospital Encounter [facility] Surgery at [address] [address] Sherman Veras MD Nontraumatic complete tear of right rotator cuff (Primary Dx) Discharge Disposition: Discharge to home or self care 09/11/2024 10:30 AM CDT Office Visit [facility] Ophthal[facility] [address] [phone] Silas Dunham MD Pseudotumor cerebri syndrome (Primary Dx) 09/11/2024 10:00 AM CDT Imaging Exam [facility] [address] [phone] Unspecified disorder of visual pathways 09/11/2024 9:50 AM CDT Imaging Exam [facility] [address] [phone] Unspecified disorder of visual pathways; Encounter for observation for other suspected diseases and conditions ruled out 09/10/2024 Telephone [facility] [address] [place] [address] Sherman Veras MD 09/09/2024 8:30 AM CDT Office Visit [facility] [address] [place] [address] Agapito Holt MD Presence of stent in coronary artery (Primary Dx) 09/03/2024 2:44 PM CDT - 09/03/2024 11:59 PM CDT Hospital Encounter [facility] Rad[facility] ([facility] [address] [place] [address] Discharge Disposition: Discharge to home or self care 09/03/2024 9:40 AM CDT Office Visit [facility] [address] [facility] 1st Floor [address] [place] [address] Sherman Veras MD Nontraumatic complete tear of right rotator cuff (Primary Dx); Biceps tendinitis of right upper extremity 09/03/2024 9:13 AM CDT - 09/03/2024 11:59 PM CDT Hospital Encounter [facility] Radiology at [facility] [address] [place] [address] Right shoulder pain, unspecified chronicity Discharge Disposition: Discharge to home or self care 09/03/2024 Documentation [facility] [address] [facility] 1st Floor [address] [place] [address] Sherman Veras MD 08/30/2024 Telephone [facility] [address] [phone] Silas Dunham MD 08/29/2024 9:00 AM CDT Office Visit [facility] [address] [phone] Mary Camarillo MD 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, without long-term current use of insulin (HCC) (Primary Dx) 08/26/2024 Orders Only [facility] [address] [place] [phone] Silas Dunham MD Encounter for observation for other suspected diseases and conditions ruled out (Primary Dx); Unspecified disorder of visual pathways 07/19/2024 Telephone [facility] [address]21 [place] [address] Silas Dunham MD Test Results 07/18/2024 10:40 AM CDT - 07/18/2024 11:59 PM CDT Hospital Encounter [facility] Neuro Interventional Radiology [address] [place] [address] Papilledema Discharge Disposition: Discharge to home or self care 07/18/2024 Orders Only [facility] [address] [phone] Silas Dunham MD 07/17/2024 Orders Only [facility] Interventional Radiology [address] [place] [address] Ashley Álvarez, IBRAHIMA 07/15/2024 Telephone [facility] Interventional Radiology [address] [place] [address] Shabana Box RN 07/15/2024 Orders Only [facility]iology [address] [place] [address] Luciana Hamilton RN 07/12/2024 Telephone [facility] 6th [place] [address] Silas Dunham MD from Last 3 Months Immunizations Immunization Administration Dates Next Due Influenza, Unspecified 01/08/2021 Surgical History Surgery Date Site/Laterality Comments THYROIDECTOMY, PARTIAL benign nodules KNEE SURGERY Right torn meniscus UMBILICAL HERNIA REPAIR CORONARY ANGIOPLASTY 01/21/2020 Stent to the left circumflex LUMBAR PUNCTURE WO INJECTION, DIAGNOSTIC 07/18/2024 N/A COLONOSCOPY 03/13/2023 - 03/12/2024 Medical History Medical History Date Comments Diabetes mellitus (HCC) Hypertension Hyperlipidemia Abnormal blood level of uric acid Thyroid disease GERD (gastroesophageal reflux disease) Coronary artery disease 01/19/2020 RI (myocardial infarction) (HCC) Spinal stenosis Gout Family History Medical History Relation Name Comments Diabetes Brother 1 Epilepsy Brother 1 Diabetes Brother 2 Heart disease Father Stroke Father Heart disease Mother Heart disease Mother's Brother Anesthesia problems Neg Hx Relation Name Status Comments Brother 1 Brother [...] on file Legal Sex Male 7:59 AM COMMUNICATIONS STATION MANAGER Gender Identity Not on file Sexual Orientation Not on file 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 Not on file Not [...] 09/09/2024 8:44 AM CDT Plan of Treatment Health Maintenance Due Date Last Done Comments Albumin Creatinine Ratio, Urine 1960 Colon Cancer Screening-Colonoscopy 1960 Depression Screening 1960 Hepatitis C Screening 1960 Foot Exam 1960 DTaP/Tdap/Td Vaccine (1 - Tdap) 1969 Hepatitis B Screening 1976 Pneumococcal vaccine 65+ (1 of 2 - PCV) 1977 Zoster Vaccine (1 of 2) 2008 Hemoglobin A1C 07/20/2020 01/21/2020 eGFR 03/04/2022 03/04/2021, 02/11, 03/03/2021, Additional history exists Prostate Cancer Screening-PSA 03/05/2023 03/05/2021 Abdominal Aortic Aneurysm (A AA) Screen 09/26/2023 03/04/2021 Well Visit 65+ 09/26/2023 Influenza Vaccine (#1) 2024 01/08/2021, 2019 Lipid Panel 02/12/2025 02/13/2024, 01/12, 01/20/2022, Additional history exists Dilated Eye Exam 08/29/2025 08/29/2024, 04/23/2021 Fall Risk Assessment 09/16/2025 09/16/2024 Medical Devices Implanted Type Area Valve Maker Device Identifier Shelf Expiration Date Model / Serial / Lot BlackbookHR [id number] Synergy 3mm 38mm 144cm Radiopaque 1 Access Port Inflation Lumen - [id number] - [id number] Implanted:Qty: 1 on 01/21/2020 by Geronimo Ji MD at [facility] [employer] 10/16/2021 [id number] / [id number] / [id number] [employer] Fiberloop 3.2mm Drill Pin Needle Shoehorn Cannula Kit Suture Ar-2290 - [id number] Implanted:Qty: 1 on 09/16/2024 by Sherman Veras MD at [facility] Right: Shoulder [employer] [id number] 05/10/2029 [id number]-2290 / / [id number] Procedures Procedure Name Priority Date/Time Associated Diagnosis Comments POCT GLUCOSE DEVICE Routine 09/16/2024 9 :16 AM CDT MS AN PROCEDURE PLACEHOLDER Routine 09/16/2024 7:55 AM CDT MS AN ELECTIVE ENDOTRACHEAL AIRWAY Routine 09/16/2024 7:55 AM CDT MS AN PROCEDURE PLACEHOLDER Routine 09/16/2024 7:42 AM CDT MS AN PROCEDURE PLACEHOLDER Routine 09/16/2024 7:41 AM [...] POCT LIPID PANEL Routine 02/13/2024 4:52 PM COMMUNICATIONS STATION MANAGER Lipid screening PSA SCREEN Routine 03/05/2021 5:09 AM COMMUNICATIONS STATION MANAGER EGFR STAT 03/04/2021 4:36 PM COMMUNICATIONS STATION MANAGER CT CHEST ABDOMEN PELVIS W CONTRAST IP Routine 03/04/2021 3:23 PM COMMUNICATIONS STATION MANAGER HEMOGLOBIN A1C STAT 01/21/2020 3:20 PM COMMUNICATIONS STATION MANAGER from Last 3 Months or Most Recently Relevant to Health Maintenance Results * POCT glucose (09/16/2024 9:16 AM CDT) Glucose, POC 172 70 - 199 mg/dL Comment:Glu2: RN/ Notified Glucose comment 1 Glu2: RN/ Notified [facility] Blood 09/16/2024 9:16 AM CDT 09/16/2024 9:16 AM CDT us Sherman Veras MD LAB POCT ORDERABLES - DEVICE Final Result Performing Organization Address City/State/[facility] Co nc Phone Number СВЕТЛАНА BJAshley Galaviz [facility] Department [place] [address] * MS AN ELECTIVE ENDOTRACHEAL AIRWAY, MS AN PROCEDURE PLACEHOLDER (09/16/2024 7:55 AM CDT) Narrative Pallavi De Paz CRNA - 09/16/2024 7:55 AM CDT Pallavi De Paz CRNA 09/16/2024 7:56 AM Airway Patient location: OR Indications for airway management: anesthesia Difficult airway: no Staff: Placed by: CARBON GRINDER: Pallavi De Paz CRNA Emergent airway documentation: [...] MD ANESTHESIA ORDERABLES Janeen l Result * MS AN PROCEDURE PLACEHOLDER (09/16/2024 7:42 AM CDT) [...] MD ANESTHESIA ORDERABLES Janeen l Result * MS AN PROCEDURE PLACEHOLDER (09/16/2024 7:41 AM CDT) [...] * POCT glucose (09/16/2024 6:46 AM CDT) Glucose, POC 136 70 - 199 mg/dL Blood 09/16/2024 6:46 AM CDT 09/16/2024 6:46 AM CDT us Sherman Veras MD LAB POCT ORDERABLES - DEVICE Final Result СВЕТЛАНА [facility] [place] [address] * Fu Visual Field - OU - Both Eyes (09/11/2024 10:35 AM CDT) Pattern Deviation OS 4.31 db CONTINUUM Pattern [...] full with likely rim artifact, both eyes us Silas Dunham MD OPHTH VISUAL FIELD F [...] Outside Reference (09/03/2024 2:44 PM CDT) Impressions RAD_PACS_BJ - 09/03/2024 2:44 PM CDT These images are for Reference purposes only and have not been reviewed by [facility]. There will be no report generated by a [facility] Radiologist. Narrative RAD_PACS_BJ - 09/03/2024 2:44 PM [...] it. Electronically signed by: Kyler Booth MD us Silas Dunham MD IMG FLUOROSCOPY PROC EDURES Final Result * (ABNORMAL) Cell count w/reflex diff, CSF (07/18/2024 11:50 AM CDT) Tube Number, CSF Tube 1 Color, CSF Colorless Colorless [facility] Clarity, CSF Clear Clear [facility] Xanthochromia , CSF Absent Absent [facility] Nucleated cells, CSF 0 0 - 5 /cumm [facility] RBC, CSF 34(H) 0 - 0 /cumm [facility] CSF 07/18/2024 11:5 0 AM CDT 07/18/2024 1:39 PM CDT us Silas Dunham MD LAB BODY FLUIDS AND STOOLS ORDERABLES Final Result Performing Organization Address City/[facility]/ZIP Co de Phone Number СВЕТЛАНА [facility] Department [place] [address] * Flow Leukemia/Lymphoma CSF (07/18/2024 11:50 AM CDT) [place] Stain Test Completed Leukemia/Lymp syeda Result See separate Surgical Pathology report. [facility] CSF 07/18/2024 11:5 0 AM CDT 07/18/2024 3:32 PM CDT us Silas Dunham MD LAB PATHOLOGY ORDERA BLES Final Result СВЕТЛАНА [facility] Department [place] [address] * Multiple sclerosis (MS) profile with reflex to oligoclonal bands, CSF/serum (07/18/2024 11:50 AM CDT) [place] free light chain, CSF 0.0133 <0.1000 mg/dL [facility] Comment: Negative. The kappa free light concentration measured in CSF is lower than the threshold associated with multiple sclerosis. Clinical correlation recommended. ADDITIONAL INFORMATION This test has been modified from the demolition expert's instructions. Its performance characteristics were determined by [facility] in a manner consistent with CLIA requirements. This test has not been cleared or approved by the U.S. Food and Drug Administration. A [facility] study published in 2018 with 325 patients suggested that a kappa free light chain concentration in CSF greater than or equal to 0.06 mg/dL has 92% clinical sensitivity in the diagnosis of multiple sclerosis (ref 1). A second, larger [facility] study with 1355 patients published in [...] for oligoclonal banding test results. References: 1.Leann NAIK, Gaby Ling, Cuco LERNER, Prince DE LEÓN, Kvng DL, Cirilo TERRELL, et al. CSF free light chain identification of demyelinating disease: comparison with oligoclonal banding and other CSF indexes. Clin Chem Lab Med. 2018;56(7):1071-80. 2.Wesley MEDINA, Cuco LERNER, Jimbo Wyatt, Amber Arroyo, Kvng ELAM, Cirilo TERRELL, et al. CSF [place] Free Light Chains: Cutoff Validation for Diagnosing Multiple Sclerosis. Isabel Clin Proc. 2020; [id number](18)65938-2. doi: 10.1016/j.mayocp.2020.09.014. Blood/Cerebrospi nal fluid 07/18/2024 11:50 AM CDT 07/18/2024 2:51 PM CDT Silas Dunham MD LAB BLOOD ORDERABLES Final Result Performing Organization Address [facility] Co de Phone Number [facility] [place] [address] [facility] * Oligoclonal banding (07/18/2024 11:50 AM CDT) Pathologist [facility] Oligoclonal bands, CSF 0 bands [facility] Oligoclonal bands 0 bands [facility] Oligoclonal bands, interp 0 <2 bands [facility] Comment: The oligoclonal band assay detected no unique IgG bands in the CSF. This is a negative result. Test Performed by: [place] [address] Regional Wildlife Agent: Barbara Jackson Ph.D.; CLIA# [id number] Blood/Cerebrospi nal fluid 07/18/2024 11:50 AM CDT 07/18/2024 2:51 PM CDT Silas Dunham MD LAB BLOOD ORDERABLES Final Result Performing Organization Address [facility] Co de Phone Number [facility] [place] [address] [facility] * (ABNORMAL) IgG index, CSF and blood (07/18/2024 11:50 AM CDT) Immunoglobulin G 656(L) 767 - 1590 mg/dL [facility] Albumin 4400 3500 - 5000 mg/dL [facility] Comment: Test Performed by: [facility] [place] [address] [place] [address] Regional Wildlife Agent: Barbara Jackson Ph.D.; CLIA# [id number] Test Performed by: [facility] [address] [place] [address] Regional Wildlife Agent: Barbara Jackson Ph.D.; CLIA# [id number] IgG, CSF 1.6 <=8.1 mg/dL [facility] Albumin, CSF 21.2 <=27.0 mg/dL [facility] CSF IgG/albumin ratio, CSF 0.08 <=0.21 [facility] IgG/Albumin Ratio, Serum 0.15 <=0.40 [facility] IgG index, CSF 0.53 <=0.70 [facility] IgG synthesis rate, CSF 0.00 <=12 mg/24H [facility] Albumin quotient, CSF/Serum 4.82 <=14 [facility] Blood/Cerebrospi nal fluid 07/18/2024 11:50 AM CDT 07/18/2024 2:51 PM CDT Silas Dunham MD LAB BODY FLUIDS AND STOOLS ORDERABLES Final Result Performing Organization Address City/[facility] Co de Phone Number [facility] [place] [address] [facility] * Protein, total, CSF (07/18/2024 11:50 AM CDT) Pathologist [facility] Protein, CSF 40 5 - 45 mg/dL Comment:Cells present. Resul ts may be falsely elevated. CSF 07/18/2024 11:5 0 AM CDT 07/18/2024 2:00 PM CDT Silas Dunham MD LAB BODY FLUIDS AND STOOLS ORDERABLES Final Result Performing Organization Address City/[facility] Co de Phone Number [facility] [place] [address] * Glucose, CSF (07/18/2024 11:50 AM CDT) [...] 0 AM CDT 07/18/2024 2:00 PM CDT us Silas Dunham MD LAB BODY FLUIDS AND STOOLS ORDERABLES Final Result СВЕТЛАНА [facility] Department [place] [address] * Surgical pathology (07/18/2024 11:50 AM CDT) Cerebrospinal Fluid (Cytology) 07/18/2024 11:50 AM CDT 07/18/2024 1:59 PM CDT Narrative 07/19/2024 5:58 PM CDT EPIC results best viewed via link to PDF [facility] Bianca Kramer [facility] [place] [address] Note to Patients: This report may contain [...] Gender: M : 1960 (Age: 63) Address: [address] [place], [place] [phone] [facility] #: [id number] Taken:07/18/2024 Received:07/18/2024 Reported: 07/19/2024 Patient Type: [facility] Ancillary Service: Laboratory Location: Physician(s): Silas Dunham [...] cytometry specimen was examined for internal quality systems specialist purposes. Rare peripheral blood elements seen. Paola [...] Surgical Pathology and Flow Cytometry Departments at [facility] as part of an ongoing director quality assurance program and in compliance with federally mandated [...] Surgical Pathology and Flow Cytometry Departments of [facility]. It has not been cleared or approved [...] results best viewed via link to PDF [facility] Bianca Kramer Laboratory [place] [address] Note to Patients: This report may contain [...] Gender: Alexandria : 1960 (Age: 63) Address: [address] [place] [phone] Hospital #: [id number] Taken:07/18/2024 Received:07/18/2024 Reported: 07/19/2024 Patient Type: [facility] Ancillary Service: UNKNOWN Location: Physician(s): Silas Dunham M.D. FINAL DIAGNOSIS A. Cerebrospinal fluid: - Negative for malignancy hrk/07/19/2024 17:09 By this signature, I attest that the above diagnosis is based upon my personal examination of the slides(and/or other material indicated in the diagnosis). Doretha Rodriguez M.D. Report Electronically Reviewed and Signed Out By Doretha Rodriguez M.D. 07/19/2024 17:09:14 Oseas Wheat, [facility](ASCP), [facility] Gross Description A. Cerebrospinal fluid: 5 [...] Surgical Pathology and Flow Cytometry Departments at [facility] as part of an ongoing director quality assurance program and in compliance with federally mandated [...] Surgical Pathology and Flow Cytometry Departments of [facility]. It has not been cleared or approved by the U. S. Food and Drug Administration. us Silas Dunham MD LAB CYTOLOGY ORDERAB LES Final Result * POCT lipid panel (02/13/2024 4:52 PM COMMUNICATIONS STATION MANAGER) Cholesterol, POC 140 mg/dL Comment:GLU = 166 HDL, POC 57 mg/dL Triglycerides, POC 87 mg/dL LDL Cholesterol POC 66 mg/dL Chol/HDL Ratio, POC 1.2 Non-HDL Cholesterol, POC 83 mg/dL Cholesterol Total, POC 140 mg/dL Capillary blood 02/13/2024 4 :52 PM COMMUNICATIONS STATION MANAGER us Agapito Holt MD POINT OF CARE TEST ORDER TRUNG Final Result * PSA screen (03/05/2021 5:09 AM COMMUNICATIONS STATION MANAGER) PSA-Total 1.29 <=5.40 ng/mL [facility] Comment: Interpretive Data AGE SEX REFERENCE INTERVAL 0 minutes-150 years Female None 0 minutes-49 years Male None 50-59 years Male 0-3.90 60-69 years Male 0-5.40 70-79 years Male 0-6.20 80-150 years Male 0-6.20 Current interpretive data last revised 2017. Blood 03/05/2021 5:09 AM COMMUNICATIONS STATION MANAGER 03/05/2021 6:29 AM COMMUNICATIONS STATION MANAGER us Sweta Salvador MD PhD LAB BLOOD ORDERABLES F inal Result [facility] Department [place] [address] * eGFR (03/04/2021 4:36 PM COMMUNICATIONS STATION MANAGER) eGFR >90 90 - 130 mL/min/1. 73 m2 [facility] Comment: Interpretive Data Reference Interval Normal >/= [...] last reviewed 2021. Blood 03/04/2021 4:36 PM COMMUNICATIONS STATION MANAGER 03/04/2021 4:54 PM COMMUNICATIONS STATION MANAGER us Sweta Salvador MD PhD LAB BLOOD ORDERABLES F inal Result СВЕТЛАНА [facility] [place] [address] * CT Chest Abdomen Pelvis W Contrast (03/04/2021 3:23 PM COMMUNICATIONS STATION MANAGER) Anatomical Region Laterality Modality Body N/A Computed Tomogra phy 03/04/2021 4:18 PM COMMUNICATIONS STATION MANAGER Impressions 03/04/2021 11:38 PM COMMUNICATIONS STATION MANAGER 1. Subtle 2.2 cm possible lesion [...] Jose Levine MD Narrative 03/04/2021 11:38 PM COMMUNICATIONS STATION MANAGER EXAMINATION: Computed tomography of the chest, [...] * (ABNORMAL) Hemoglobin A1c (01/21/2020 3:20 PM COMMUNICATIONS STATION MANAGER) Hgb A1C 8.8(H) 4.0 - 5.6 % [facility] Estimated Average Glucose 206 mg/dL [facility] Comment: The ADA recommends reporting an estimated Average Glucose (eAG) with all Hemoglobin A1c results using the equation derived from a study of 507 normal and diabetic adults. Minority populations were underrepresented and children were not included. (Diabetes Care 31:0356-3314, 2008). The eAG is not equivalent to a fasting glucose. Blood specimen (specimen) 01/21/2020 3:20 PM COMMUNICATIONS STATION MANAGER 01/21/2020 3:24 PM COMMUNICATIONS STATION MANAGER Molly Khan MD LAB BLOOD ORDERABLES Final Result Performing Organization Address City/State/ZIP [facility] Phone Number СВЕТЛАНА [facility] [address] [place] [address] from Last 3 Months or Most Recently Relevant to Health Maintenance Insurance MEDICARE [facility] MEDICARE [facility] Advance Directives For more information, please contact: [phone] Documents on File Type Date Recorded Patient Maxillofacial Prosthetics Dentist Expl anation ADVANCE DIRECTIVE 09/20/2024 4:24 PM POWER OF CARD CUTTER HELPER-MEDICAL * Full Code (Latest Code Status on File) Date Activated Date Inactivated Comments 03/04/2021 9:56 AM 03/05/2021 5:22 PM * Full Code Date Activated Date Inactivated Comments 01/21/2020 10:42 AM 01/22/2020 3:09 AM Care Teams Location Director Relationship Specialty Start Date End Date Jose M Jim DO [address] [address] PCP - General Internal Medicine 07/03/24 Geronimo Ji MD Referring Physician Cardiovascular Disease 01/21/20
--- OUTSIDE RECORDS SUMMARY | 2024-10-12 06:53 | XMS_ITS | Clinical Summary ---
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
--- OUTSIDE RECORDS SUMMARY | 2024-10-12 06:53 | XMS_ITS | Clinical Summary ---
Author Organization [facility] Address [address], [address] [address] Phone Care Team Providers Care Grinder Operator Tool Name Role Phone Brown Gutierrez DO Primary [...] 1:00 PM CDT Height 157.5 cm (5' 2) 12/12/2019 1:00 PM CDT Body Mass Index 30.18 12/12/2019 1:00 PM CDT Plan of Treatment Health Maintenance Due Date Last Done Comments Hepatitis C Virus (HCV) Screening 1960 TdaP Immunization 1960 Cologuard 09/26/2003 Immunochemical Fecal Occult Blood 09/26/2003 Pneumococcal Immunization (5 0+ years) (1 of 1 - PCV) 2008 Zoster Immunization (1 of 2) 2008 Colonoscopy 01/23/2022 01/24/2012 Colorectal Cancer Screening 01/23/2022 SARS-COV-2 Immunization ( season) 2023 05/19/2020, 04/21/2020 Influenza Immunization (#1) 2024 Respiratory Syncytial Virus (RSV) Immunization (Adult) (1 - 1-dose 75+ series) 2033 Hepatitis B Immunization Aged Out No longer eligible based on patient's age to complete this topic Human Papillomavirus (HPV) Immunization Aged Out No longer eligible b ased [...] Recently Relevant to Health Maintenance Care Teams Grinder Operator Tool Relationship Specialty Start Date End Date Brown Gutierrez DO [address] [place] [address] PCP - General Internal Medicine 06/22/17
--- OUTSIDE RECORDS SUMMARY | 2024-10-12 06:53 | XMS_ITS | Encounter Summary ---
Author Organization [facility] Address 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
--- OUTSIDE RECORDS SUMMARY | 2024-10-12 06:53 | XMS_ITS | Clinical Summary ---
Author Organization [facility] Address [address] [place] [address] Phone Care Team Providers Care Admissions Assistant Name Role Phone SoniyaBrown arias Primary Care Provider [phone] Allergies No known active allergies Medications acetaZOLAMIDE (DIAMOX) 500 MG 12 hr capsule 2 Active allopurinol (ZYLOPRIM) 300 MG tablet Take 300 mg by mouth 1 (one) time each day 2 Active Aspirin Low Dose 81 MG EC tablet Take 81 mg by mouth 1 (one) time each day 2 Active gabapentin (NEURONTIN) 300 MG capsule 2 Active glimepiride (AMARYL) 4 MG tablet Take 4 mg by mouth 2 (two) times a day with meals 2 Active True Metrix Blood Glucose Test test strip TEST DAILY DIRECTED 2 Active magnesium oxide (MAG-OX) 400 (241.3 Mg) MG tablet 400 MG BY MOUTH DAILY 2 Active metFORMIN (GLUCOPHAGE) 1000 MG tablet Take 1,000 mg by mouth 2 (two) times a day with meals 2 Active metoprolol succinate XL (TOPROL-XL) 50 MG 24 hr tablet 2 Active omeprazole (PriLOSEC) [address] capsule Take 40 mg by mouth 1 (one) time each day 2 Active rosuvastatin (CRESTOR) 5 MG tablet Take 5 mg by mouth 1 (one) time each day in the morning 2 Active Ozempic, 1 MG/DOSE, 4 MG/3ML solution pen-injector ADMINISTER 1 MG UNDER THE SKIN WEEKLY FOR 12 WEEKS 2 Active nitroglycerin (NITROSTAT) 0.[address] 0.4 mg under the tongue 1 Active Jardiance 10 MG tablet Take 1 tablet by mouth 1 (one) time each day 2 Active quinapril (ACCUPRIL) 20 MG tablet Take 20 mg by mouth 1 (one) time each day 2 Active Active Problems Problem Noted Date Diagnosed Date Benign intracranial hypertension 07/02/2021 Blood urate abnormal 05/24/2021 Diabetes mellitus 05/24/2021 Gastroesophageal reflux disease 05/24/2021 Hyperlipidemia 05/24/2021 Hypertension 05/24/2021 Myocardial infarction 05/24/2021 Papilledema 03/04/2021 Stented coronary artery 03/19/2020 Immunizations Immunization Administration Dates Next Due Influenza, Injectable, Quadrivalent, [...] at Not on file Legal Sex Male 2:06 PM [facility] Gender Identity Not on file Sexual Orientation [...] 8:36 AM CDT Height 157.5 cm (5' 2) 11/08/2021 8:36 AM CDT Body Mass Index 25.97 11/08/2021 8:36 AM CDT Plan of Treatment Health Maintenance Due Date Last Done Comments Pneumococcal PPSV23/PCV13 65 + Years / Low and Medium Risk (1 of 2 - PCV) 2008 COVID-19 Vaccine (3 - season) 11/12/202311/2020, 04/21/2020 Influenza Vaccine (#1) 2024 01/08/2021, 2019 Insurance [employer] Care Teams Admissions Assistant Relationship Specialty Start Date End Date Brown Gutierrez DO [address] [place] [address] PCP - General Internal Medicine 03/30/21
[2024-10-12 07:41] LABS: Alanine Aminotransferase 20 U/L (6-50); Albumin Level 4.4 g/dL (3.5-5.1); Alkaline Phosphatase 61 U/L (38-126); Anion Gap 11 mmol/L (4-12); Aspartate Amino Transferase 26 U/L (17-59); Bilirubin,Total 0.4 mg/dL (0.2-1.3); Blood Urea Nitrogen 26 mg/dL (9-20); Calcium 9.3 mg/dL (8.4-10.2); Carbon Dioxide 19 mmol/L (22-30); Chloride 105 mmol/L (98-107); Cholesterol 131 mg/dL (0-200); Estimated Glomerular Filt Rate > 60; Glucose 176 mg/dL (65-110); HDL Direct 40 mg/dL; Potassium 3.9 mmol/L (3.4-5.0); Sodium 135 mmol/L (137-145); Total Protein 7.0 g/dL (6.3-8.2); Triglycerides 386 mg/dL (<150)
[2024-10-12 07:49] LABS: Free T4 Free Thyroxine 1.02 ng/dL (0.78-2.19)
[2024-10-12 08:12] LABS: Thyroid Stimulating Hormone 1.980 uIU/mL (0.465-4.680)
[2024-10-12 08:32] LABS: Vitamin B12 401.0 pg/mL (239-931)
[2024-10-12 09:31] LABS: Total Protein Urine Random 16 mg/dL
[2024-10-12 09:47] LABS: MALB Creatinine Ratio 46.9 mg/g (0-30); Ur Ttl Prot Creatinine Ratio 0.21 mg/mg (0-0.20)
== END 2024-10-12 06:51 | disposition home or self-care (01) ==
PROVIDERS: PCP Internal Medicine; Referring Provider Nurse Practitioner Family; Visit Provider Internal Medicine Nephrology
DX: E11.65 Type 2 diabetes mellitus with hyperglycemia (principal); E78.5 Hyperlipidemia, unspecified; E11.29 Type 2 diabetes mellitus with other diabetic kidney complication; R80.9 Proteinuria, unspecified; E78.00 Pure hypercholesterolemia, unspecified; R80.8 Other proteinuria; I10 Essential (primary) hypertension
CPT/HCPCS: 36415; 80053; 80061; 82043; 82570; 82607; 84100; 84156; 84439; 84443

== ENCOUNTER 2024-10-20 11:10 | Emergency (ER) | payer MEDICARE, OTHER, SELFPAY ==
--- OUTSIDE RECORDS SUMMARY | 2024-10-20 11:13 | XMS_ITS | Clinical Summary ---
Author Organization [facility] Address [address] [place] [address] Phone Care Team Providers Care Drophammer Operator Name Role Phone SoniyaBrown arias Primary Care Provider [phone] Allergies No known active allergies Medications acetaZOLAMIDE [...] on file Legal Sex Male 2:06 PM [facility] Gender Identity Not on file Sexual [...] 2024 01/08/2021, 2019 Insurance [employer] Care Teams Drophammer Operator Relationship Specialty Start Date End Date Brown Gutierrez DO [address] [place] [address] PCP - General Internal Medicine 03/30/21
--- OUTSIDE RECORDS SUMMARY | 2024-10-20 11:13 | XMS_ITS | Encounter Summary ---
Author Organization [facility] Address 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
--- OUTSIDE RECORDS SUMMARY | 2024-10-20 11:13 | XMS_ITS | Clinical Summary ---
Author Organization [facility] [address] Address [address] [place] [address] Care Team Providers Care Director Product Name Role Phone Geronimo Ji MD Unavailable Jose M Jim DO Primary Care Provider [phone] Allergies No known active allergies Medications magnesium oxide (MAG-OX) 400 mg (241.3 mg elemental magnesium) tabletIndications: hypomagnesemia Take 1 tablet (400 mg total) by mouth 2 (two) times a day Active omeprazole (PriLOSEC) 40 mg capsuleIndications :Treatment of Non-Bleeding Gastric Disorder Take 1 capsule (40 mg total) by mouth photovoltaic subcontractor before breakfast Active fluticasone propionate (FLONASE) 50 mcg/actuation nasal sprayIndications:A llergic Conjunctivitis Administer 1 spray into each nostril photovoltaic subcontractor before breakfast Active allopurinoL (ZYLOPRIM) 300 mg tabletIndications: prevention of acute gout attack Take 1 tablet (300 mg total) by mouth photovoltaic subcontractor before breakfast Active semaglutide (Ozempic) 1 mg/dose (2 mg/1.5 mL) pen injectorIndication s:type 2 diabetes mellitus Inject 0.75 mL (1 mg total) under the skin every 7 days Monday Active metFORMIN (GLUCOPHAGE) 1,000 mg tabletIndications: type 2 diabetes mellitus Take 1 tablet (1,000 mg total) by mouth 2 (two) times a day with meals 1 Active empagliflozin (JARDIANCE) 25 mg tabletIndications: type 2 diabetes mellitus Take 1 tablet (25 mg total) by mouth photovoltaic subcontractor before breakfast Active ramipriL (ALTACE) 10 mg capsuleIndications :heart Take 1 capsule (10 mg total) by mouth photovoltaic subcontractor before breakfast 2 Active nitroglycerin (NITROSTAT) 0.4 mg SL tabletIndications: acute myocardial infarction Place 1 tablet (0.4 mg total) under the tongue every 5 (five) minutes as needed for chest pain 90 tablet 3 Active aspirin 81 mg enteric coated tablet TAKE 1 TABLET BY MOUTH EVERY DAY 30 tablet 11 4 Active metoprolol XL (TOPROL-XL) 50 mg extended release tablet TAKE 1 TABLET(50 MG) BY MOUTH DAILY 90 tablet 3 5 Active rosuvastatin (CRESTOR) 5 mg tablet TAKE 1 TABLET(5 MG) BY MOUTH DAILY 30 tablet 11 5 Active acetaZOLAMIDE ER (DIAMOX SEQUAL) 500 mg capsuleIndications :eye health Take 1 capsule (500 mg total) by mouth 2 (two) times a day Active acetaminophen (TYLENOL) 500 mg tablet Take 2 tablets (1,000 mg total) by mouth every 6 (six) hours 60 tablet 1 5 Active oxyCODONE (ROXICODONE) 5 mg immediate release tabletIndications: Pain Take 1 tablet (5 mg total) by mouth every 4 (four) hours as needed for pain 30 tablet 5 Active celecoxib (CeleBREX) 100 mg capsuleIndications :Postoperative Acute Pain Take 1 capsule (100 mg total) by mouth 2 (two) times a day for 15 days 30 capsule 5 Active Active Problems Problem Noted Date Diagnosed [...] Description 09/26/2024 12:30 PM CDT Office Visit [facility] Surgery [address] [place] [address] 1st Floor [address] [place] [address] Sherman Veras MD Nontraumatic complete tear of right rotator cuff (Primary Dx) 09/16/2024 7:30 AM CDT - 09/16/2024 9:15 AM CDT Surgery [facility] Surgery at [address] [address] Sherman Veras MD RIGHT SHOULDER ARTHROSCOPIC DEBRIDEMENT 09/16/2024 7:27 AM CDT Anesthesia Event [facility] Surgery at [address] [address] Benton Kennedy MD Wiethuchter, Kelli P., NP 09/16/2024 6:15 AM CDT - 09/16/2024 9:54 AM CDT Hospital Encounter [facility] Surgery at [address] [address] Sherman Veras MD Nontraumatic complete tear of right rotator cuff (Primary Dx) Discharge Disposition: Discharge to home or self care 09/11/2024 10:30 AM CDT Office Visit [facility] Ophthalmology [address] [place] [address] Silas Dunham MD Pseudotumor cerebri syndrome (Primary Dx) 09/11/2024 10:00 AM CDT Imaging Exam [facility] [address] [place] [address] Unspecified disorder of visual pathways 09/11/2024 9:50 AM CDT Imaging Exam [facility] [address] [address] Unspecified disorder of visual pathways; Encounter for observation for other suspected diseases and conditions ruled out 09/10/2024 Telephone [facility] [address] [place] [address] Sherman Veras MD 09/09/2024 8:30 AM CDT Office Visit [facility] [address] [place] [phone] Basim Holt MD Presence of stent in coronary artery (Primary Dx) 09/03/2024 2:44 PM CDT - 09/03/2024 11:59 PM CDT Hospital Encounter [facility] Radiology [facility] ([facility]) [address] [place] [address] Discharge Disposition: Discharge to home or self care 09/03/2024 9:40 AM CDT Office Visit [facility] [address] [place] [address] Sherman Veras MD Nontraumatic complete tear of right rotator cuff (Primary Dx); Biceps tendinitis of right upper extremity 09/03/2024 9:13 AM CDT - 09/03/2024 11:59 PM CDT Hospital Encounter [facility] Radiology at 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, without long-term current use of insulin (HCC) (Primary Dx) 08/26/2024 Orders Only [facility] [address] [facility] [address] [place] [phone] Slias Dunham MD Encounter for observation for other suspected diseases and conditions ruled out (Primary Dx); Unspecified disorder of visual pathways from Last 3 Months Immunizations Immunization Administration [...] (gastroesophageal reflux disease) Coronary artery disease 01/19/2020 CT (myocardial infarction) (HCC) Spinal stenosis Gout Family [...] on file Legal Sex Male 7:59 AM REGISTERED NURSE MATERNITY Gender Identity Not on file Sexual Orientation Not on file 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 on file Not on file Not [...] 09/16/2025 09/16/2024 Medical Devices Implanted Type Area Business Applications Developer Device Identifier Shelf Expiration Date Model / Serial / Lot [employer]an [id number] Synergy 3mm 38mm 144cm Radiopaque 1 Access Port Inflation Lumen - [id number] - [id number] Implanted:Qty: 1 on 01/21/2020 by Geronimo Ji MD at [facility] Stent [employer] 10/16/2021 [id number] / [id number] / [id number] [employer] Fiberloop 3.2mm Drill Pin Needle Shoehorn Cannula Kit Suture [id number] - [id number] Implanted:Qty: 1 on 09/16/2024 by Sherman Veras MD at [facility] Right: Shoulder [employer] [id number] 05/10/2029 [id number]-2290 / / [id number] Procedures Procedure Name Priority Date/Time Associated Diagnosis Comments POCT GLUCOSE DEVICE Routine 09/16/2024 9 :16 AM CDT OH AN PROCEDURE PLACEHOLDER Routine 09/16/2024 7:55 AM CDT OH AN ELECTIVE ENDOTRACHEAL AIRWAY Routine 09/16/2024 7:55 AM CDT OH AN PROCEDURE PLACEHOLDER Routine 09/16/2024 7:42 AM CDT OH AN PROCEDURE PLACEHOLDER Routine 09/16/2024 7:41 AM [...] without long-term current use of insulin (HCC) POCT LIPID PANEL Routine 02/13/2024 4:52 PM REGISTERED NURSE MATERNITY Lipid screening PSA SCREEN Routine 03/05/2021 5:09 AM REGISTERED NURSE MATERNITY EGFR STAT 03/04/2021 4:36 PM [address] N[address]SE MATERNITY CT CHEST ABDOMEN PELVIS W CONTRAST IP Routine 03/04/2021 3:23 PM REGISTERED NURSE MATERNITY HEMOGLOBIN A1C STAT 01/21/2020 3:20 PM REGISTERED NURSE MATERNITY from Last 3 Months or Most Recently Relevant to Health Maintenance Results * POCT glucose (09/16/2024 9:16 AM CDT) [facility] Signature Glucose, POC 172 70 - 199 mg/dL Comment:Glu2: RN/MD Notified Glucose comment 1 Glu2: RN/MD Notified СВЕТЛАНА ESCOBAR Blood 09/16/2024 9:16 AM CDT 09/16/2024 9:16 AM CDT us Sherman Veras MD LAB POCT ORDERABLES - DEVICE Final Result [facility] Department [place] [address] * OH AN ELECTIVE ENDOTRACHEAL AIRWAY, OH AN PROCEDURE PLACEHOLDER (09/16/2024 7:55 AM CDT) Narrative Pallavi De Paz CRNA - 09/16/2024 7:55 AM CDT Pallavi De Paz CRNA 09/16/2024 7:56 AM Airway Patient location: OR Indications for airway management: anesthesia Difficult airway: no Staff: Placed by: AUDIO VISUAL DIRECTOR: Pallavi De Paz CRNA Emergent airway documentation: [...] with: silk tape Number of attempts: 1 Benton Kennedy MD ANESTHESIA ORDERABLES Janeen l Result * OH AN PROCEDURE PLACEHOLDER (09/16/2024 7:42 AM CDT) Benton Thompson MD - 09/16/2024 7:42 AM CDT Benton [...] patient tolerated procedure well with no complications Result [facility] Benton Kennedy MD ANESTHESIA ORDERABLES Janeen l Result * OH AN PROCEDURE PLACEHOLDER (09/16/2024 7:41 AM CDT) Benton Thompson MD - 09/16/2024 7:41 AM CDT Benton [...] procedure well with no complications us Benton Knenedy MD ANESTHESIA ORDERABLES Janeen l Result * POCT glucose (09/16/2024 6:46 AM CDT) Glucose, POC 136 70 - 199 mg/dL Blood 09/16/2024 6:46 AM CDT 09/16/2024 6:46 AM CDT us Sherman Veras MD LAB POCT ORDERABLES - DEVICE Final Result [facility] Department [place] [address] * Fu Visual Field - OU - [...] rim artifact, both eyes Silas Dunham MD OPH VISUAL FIELD F inal Result * OCT, [...] GCL thinning, left eye Silas Dunham MD OPH TOMOGRAPHY Fin al Result * OCT, Optic [...] Outside Reference (09/03/2024 2:44 PM CDT) Impressions [facility] - 09/03/2024 2:44 PM CDT These images are for Reference purposes only and have not been reviewed by [facility]. There will be no report generated by a [facility] Radiologist. Narrative RAD_PACS[facility] - 09/03/2024 2:44 [...] it. Electronically signed by: Godwin Lombardo M.D. Sherman Veras MD IMG XR PROCEDURES Fin [...] from the optic nerve in either eye us Mary Camarillo MD OPHTH PHOTOGRAPHY Final Re [...] no prior data. Findings include normal observations. us Mary Camarillo MD OPHTH TOMOGRAPHY Final Res ult * POCT lipid panel (02/13/2024 4:52 PM REGISTERED NURSE MATERNITY) Pathologist [facility] Cholesterol, POC 140 mg/dL Comment:GLU = 166 HDL, POC 57 mg/dL Triglycerides, POC 87 mg/dL LDL Cholesterol POC 66 mg/dL Chol/HDL Ratio, POC 1.2 Non-HDL Cholesterol, POC 83 mg/dL Cholesterol Total, POC 140 mg/dL Capillary blood 02/13/2024 4 :52 PM REGISTERED NURSE MATERNITY us Basim Holt MD POINT OF CARE TEST ORDER TRUNG Final Result * PSA screen (03/05/2021 5:09 AM REGISTERED NURSE MATERNITY) [facility] PSA-Total 1.29 <=5.40 ng/mL [facility] Comment: Interpretive Data AGE SEX REFERENCE INTERVAL 0 minutes-150 years Female None 0 minutes-49 years Male None 50-59 years Male 0-3.90 60-69 years Male 0-5.40 70-79 years Male 0-6.20 80-150 years Male 0-6.20 Current interpretive data last revised 2017. Blood 03/05/2021 5:09 AM REGISTERED NURSE MATERNITY 03/05/2021 6:29 AM REGISTERED NURSE MATERNITY Sweta Salvador MD PhD LAB BLOOD ORDERABLES F inal Result [facility] Department [place] [address] * eGFR (03/04/2021 4:36 PM REGISTERED NURSE MATERNITY) Pathologist [facility] eGFR >90 90 - 130 mL/min/1. 73 m2 [facility] Comment: Interpretive Data Reference Interval Normal >/= [...] last reviewed 2021. Blood 03/04/2021 4:36 PM REGISTERED NURSE MATERNITY 03/04/2021 4:54 PM REGISTERED NURSE MATERNITY us Sweta Salvador MD PhD LAB BLOOD ORDERABLES F inal Result [facility] Department [place] [address] * CT Chest Abdomen Pelvis W Contrast (03/04/2021 3:23 PM REGISTERED NURSE MATERNITY) Anatomical Region Laterality Modality Body N/A Computed Tomogra phy 03/04/2021 4:18 PM REGISTERED NURSE MATERNITY Impressions 03/04/2021 11:38 PM REGISTERED NURSE MATERNITY 1. Subtle 2.2 cm possible lesion in [...] Jose Levine MD Narrative 03/04/2021 11:38 PM REGISTERED NURSE MATERNITY EXAMINATION: Computed tomography of the chest, abdomen [...] * (ABNORMAL) Hemoglobin A1c (01/21/2020 3:20 PM REGISTERED NURSE MATERNITY) Hgb A1C 8.8(H) 4.0 - 5.6 % [facility] Estimated Average Glucose 206 mg/dL [facility] Comment: The ADA recommends reporting an estimated Average Glucose (eAG) with all Hemoglobin A1c results using the equation derived from a study of 507 normal and diabetic adults. Minority populations were underrepresented and children were not included. (Diabetes Care 31:8810-3781, 2008). The eAG is not equivalent to a fasting glucose. Blood specimen (specimen) 01/21/2020 3:20 PM REGISTERED NURSE MATERNITY 01/21/2020 3:24 PM REGISTERED NURSE MATERNITY Molly Khan MD LAB BLOOD ORDERABLES Final Result Performing Organization Address City/State/ZIP Co mi Phone Number [facility] [address] Department [place] [address] from Last 3 Months or Most Recently Relevant to Health Maintenance Insurance MEDICARE [facility] MEDICARE [facility] Advance Directives For more information, please contact: [phone] Documents on File Type Date Recorded Patient Design Checker Expl anation ADVANCE DIRECTIVE 09/20/2024 4:24 PM POWER OF SWEEPING COMPOUND BLENDER-MEDICAL * Full Code (Latest Code Status on File) Date Activated Date Inactivated Comments 03/04/2021 9:56 AM 03/05/2021 5:22 PM * Full Code Date Activated Date Inactivated Comments 01/21/2020 10:42 AM 01/22/2020 3:09 AM Care Teams Director Product Relationship Specialty Start Date End Date Jose M Jim DO [address] [address] PCP - General Internal Medicine 07/03/24 Geronimo Ji MD Referring Physician Cardiovascular Disease 01/21/20
--- OUTSIDE RECORDS SUMMARY | 2024-10-20 11:13 | XMS_ITS | Encounter Summary ---
Author Organization [facility] Address [address] [place] [address] Phone Care Team Providers Care Volunteer Recruitment Coordinator Name Role Phone Brown Gutierrez MD Primary Care Provider [phone] Geronimo Ji MD Unavailable Jose M Jim DO Primary Care Provider [phone] Encounter Details Date Type Department Care Team (Late st Contact Info) Description 03/04/[address] 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
--- OUTSIDE RECORDS SUMMARY | 2024-10-20 11:13 | XMS_ITS | Encounter Summary ---
Author Organization [facility] Address 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
--- OUTSIDE RECORDS SUMMARY | 2024-10-20 11:13 | XMS_ITS | Clinical Summary ---
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
--- OUTSIDE RECORDS SUMMARY | 2024-10-20 11:13 | XMS_ITS | Encounter Summary ---
Author Organization [facility] Address 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
--- OUTSIDE RECORDS SUMMARY | 2024-10-20 11:13 | XMS_ITS | Clinical Summary ---
Author Organization [facility] Address [address], [address] [address] Phone Care Team Providers Care Marketing Writer Name Role Phone Brown Gutierrez DO Primary [...] Recently Relevant to Health Maintenance Care Teams Marketing Writer Relationship Specialty Start Date End Date Brown Gutierrez DO [address] [place] [address] PCP - General Internal Medicine 06/22/17
--- OUTSIDE RECORDS SUMMARY | 2024-10-20 11:13 | XMS_ITS | Encounter Summary ---
Author Organization [facility] Address 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
--- OUTSIDE RECORDS SUMMARY | 2024-10-20 11:13 | XMS_ITS | Clinical Summary ---
Author Organization [facility] Address [address] [place] [address] Care Team Providers Care Shipping Supervisor Name Role Phone Brown Gutierrez DO Primary Care Provider [phone] Source Comments [facility],non-owned Affiliates and Associated Physician Practices is amultiple site organization consisting of ambulatory clinics and hospital sitesin [place], [place], [place] and [place]. This disclosure is being madepursuant to the Care Everywhere program and may not contain all information available regarding this patient. Last updated 17.[facility] Immunizations Immunization Administration Dates Next Due INFLUENZA VACCINE, QUADR. 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 Gender Identity Not on file Sexual Orientation [...] patient's age to complete this topic Insurance [facility] MEDICARE [facility] ATTN [facility] BASIC ACC MED [place] [id number] SELF PAY NO INSURANCE Member Subscriber Plan / Payer (Ef fective for All Dates) Name:Basim Rodrigues Member ID:Not on file Relation to Subscriber:Not on file Name:BASIM RODRIGUES Subscriber ID:Not on file (Home) Address: [address] [place] [address] Payer ID:Not on file Group ID:Not on file Type:Self Pay Address: [place], [place] [employer] Care Teams Shipping Supervisor Relationship Specialty Start Date End Date Brown Gutierrez DO [address] [facility] [address] [place], [place] [id number] PCP - General 02/15/21
[2024-10-20 11:22] VITALS: BP 112/74; PULSE 81; RESP 17; TEMP 36.3; O2SAT 98
--- NOTE | 2024-10-20 11:34 | ED_ITS ---
HPI - Skin/Abscess/Foreign Bdy General Chief complaint: Skin/Abscess/Foreign Body Stated complaint: Insect Bite on LT Leg Time Seen by Provider: 10/20/24 11:34 Source: patient Mode of arrival: ambulatory Limitations: no limitations History of Present Illness HPI narrative: 64-year-old male history of diabetes and hypertension presented for complaint of a skin wound to the left calf for 2 weeks. Endorses redness and pain to palpation. Reports occasional itching which he says is due to his dry skin. Denies any drainage from the site. Has not applied anything to the site. Denies any other skin concerns Related Data Home Medications ?Medication ?Instructions ?Recorded ?Confirmed ?Last Taken ?Type aspirin 81 mg tablet,delayed 81 mg PO DAILY 01/27/20 10/16/24 02/21/24 History release (Adult Aspirin Regimen) metoprolol succinate 50 mg 50 mg PO QAM 04/13/20 10/16/24 02/22/24 History tablet,extended release 24 hr nitroglycerin 0.4 mg sublingual 0.4 mg sublingual Q5M PRN Chest 12/31/20 10/16/24 Unknown History tablet Pain fluticasone propionate 50 1 spray intranasal DAILY 01/05/22 10/16/24 02/21/24 History mcg/actuation nasal spray,suspension (Allergy Relief (fluticasone)) acetazolamide 500 mg 500 mg PO BID 09/04/24 10/16/24 Unknown History capsule,extended release Allergies Allergy/AdvReac Type Severity Reaction Status Date / Time No Known Allergies Allergy Verified 10/20/24 11:22 Review of Systems Review of Systems: CONSTITUTIONAL: Denies body aches, fever, chills, or sweats. EYES: Denies visual changes, redness, or discharge. ENT: Denies rhinorrhea, congestion CARDIOVASCULAR: Denies chest pain, palpitations, or edema. RESPIRATORY: Denies cough or dyspnea. GASTROINTESTINAL: Denies abdominal pain, nausea, vomiting, or diarrhea. SKIN: reports skin lesion left leg MUSCULOSKELETAL: Denies back pain, joint pain, or myalgia. NEUROLOGIC: Denies headache, numbness, tingling, or weakness. [facility] Past Medical History Medical History Optic neuritis Retinopathy Hypomagnesemia Low back pain Dorsalgia Hyperkalemia Hypercalcemia Coronary artery disease Non-ST elevation [place] (NSTEMI) Acute non-ST elevation myocardial infarction (NSTEMI) Type 2 diabetes mellitus with hyperglycemia, without long-term current use of insulin Impingement syndrome of right shoulder Hernia Gout Spinal stenosis GERD (gastroesophageal reflux disease) Hypercholesterolemia HTN (hypertension) Surgical History Surgical History S/P coronary artery stent placement 1 stent to the mid RCA H/O hernia repair History of knee surgery Azeb H/O partial thyroidectomy Family History Family History Sibling Diabetes mellitus Family history of alcoholism Sibling Family history of seizure disorder Diabetes mellitus Family history of diabetes mellitus in first degree relative Family history of epilepsy Hypertension Asthma Father Diabetes mellitus Family history of alcoholism Cerebrovascular accident Mother Family history of heart disease in male family member before age 55 Family history of cardiovascular disease Diabetes mellitus Family history of arthritis Acute myocardial infarction Family history of diabetes mellitus in first degree relative Patient's mother is Social History Social History Social History: the patient is and lives with his . 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 The patient has 2 children. 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 the patient no longer smokes cigars Occasionally drinks. code status full code Smoking packs per day: 0 Smoking cigarettes per day: 0.0 Years smoked: 20 Smoking pack-years: 0.00 Smoking status: Former smoker Tobacco type: cigars Second hand tobacco smoke exposure: No Additional smoking assessment comments: 1-2 cigars a year, he quit 2019 Alcohol intake: current Drinks per week: 5 Alcohol use details: moderate Substance use: never Last use: in his 20's Current Housing: Decline to Answer Concerned About Future Housing: Decline to Answer Difficulty Paying Gas/Electric Bills: Decline to Answer Difficulty Paying for Meds: Decline to Answer Currently Unemployed: Decline to Answer Education: Decline to Answer Difficulty w/ Childcare or Family Care: Decline to Answer Living arrangements: with family Occupation/Education: retired 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 Please see nursing chart for further information. There is no relevant family history pertinent to the presenting complaint Exam Narrative: GENERAL: Well-appearing HEAD: Normocephalic, atraumatic. EYES: conjunctivae clear, and EOMI. ENT: Mucous membranes moist. Oropharynx without edema, erythema or lesions. NECK: Supple. No lymphadenopathy CHEST: Clear to auscultation. HEART: Regular rate and rhythm. SKIN: Warm, dry. Left posterior calf with 1.5 cm diameter erythematous skin n odule, no fluctuance or drainage, firm and tender. Skin is dry and flaky. NEURO: Alert and oriented x3. Course Course Emergency Course: Patient is aware of diagnosis, understands and agrees to treatment plan. Anticipatory guidance given. Patient agrees to follow-up as directed and is aware of reasons to seek care at the emergency department. Portions of this record may have been created with voice recognition software Level of Care: Express Care Visit Vital Signs Vital signs: Vital Signs Temperature 97.3 F L 10/20/24 11:22 Pulse Rate 81 10/20/24 11:22 Respiratory Rate 17 10/20/24 11:22 Blood Pressure 112/74 10/20/24 11:22 Pulse Oximetry 98 10/20/24 11:22 Oxygen Delivery Room Air 10/20/24 11:22 Temperature 97.3 F L 10/20/24 11:22 Pulse Rate 81 10/20/24 11:22 Respiratory Rate 17 10/20/24 11:22 Blood Pressure 112/74 10/20/24 11:22 Pulse Oximetry 98 10/20/24 11:22 Oxygen Delivery Room Air 10/20/24 11:22 Reviewed MDM - Skin/Abscess/Foreign Bdy MDM Narrative Medical decision making narrative: Discussed physical exam findings and reviewed prescriptions. Advised supportive measures and signs/symptoms to go to the ER. Pt is appropriate for outpt treatment and f/u. Differential Diagnosis Differential diagnosis: Likely abscess of skin or subcutaneous tissue, viral exanthem, dermatophytosis, urticaria, herpes zoster, cellulitis, eczema, insect bites, impetigo and contact dermatitis Discharge Plan Discharge Clinical Impression: Abscess Patient Disposition: Home Condition: Stable Instructions: Antibiotic Form, Abscess (ED) Additional Instructions: Cleanse with warm soapy water daily and allowed to dry Warm compresses at least 4 times a day to the site to help expel any drainage. Keep your wound covered if draining Take antibiotic as directed you can apply neosporin or bacitracin to the site Tylenol and ibuprofen every 8 hours for pain as needed Follow up with your primary care physician in 3 days for a wound check. Go to the Emergency Department immediately if you develop any of the following symptoms: Fevers, Increased redness, pain, or swelling etc Patient Language: Armenian Prescriptions: New cephalexin 500 mg capsule 500 mg PO Q8H 5 Days Qty: 15 0RF No Action aspirin [Adult Aspirin Regimen] 81 mg tablet,delayed release (DR/EC) 81 mg PO DAILY fluticasone propionate [Allergy Relief (fluticasone)] 50 mcg/actuation spray,suspension 1 spray intranasal DAILY Rx Instructions: administer into each nostril acetazolamide 500 mg capsule, extended release 500 mg PO BID Jardiance 25 mg tablet 25 mg PO DAILY Qty: 90 1RF metoprolol succinate 50 mg Tablet Extended Release 24 Hr 50 mg PO QAM nitroglycerin 0.4 mg Tablet, Sublingual 0.4 mg SUBLINGUAL Q5M PRN (Reason: Chest Pain) (DME) OneTouch Verio test strips Strip See Rx Instructions .Route Qty: 100 3RF Rx Instructions: Check blood sugars 2 times daily magnesium oxide 400 mg (241.3 mg magnesium) tablet 400 mg PO DAILY Qty: 90 1RF Ozempic 1 mg/dose (4 mg/3 mL) pen injector 1 mg subcut WEEKLY Qty: 9 1RF ramipril 10 mg capsule See Rx Instructions .ROUTE .COMPLEX Qty: 90 1RF Dose Instruction: TAKE 1 CAPSULE BY MOUTH DAILY Rx Instructions: TAKE 1 CAPSULE BY MOUTH DAILY allopurinol 300 mg tablet See Rx Instructions .ROUTE .COMPLEX Qty: 90 1RF Dose Instruction: TAKE 1 TABLET BY MOUTH DAILY Rx Instructions: TAKE 1 TABLET BY MOUTH DAILY omeprazole 40 mg capsule,delayed release(DR/EC) 40 mg PO DAILY Qty: 90 3RF metformin 1,000 mg tablet See Rx Instructions .ROUTE .COMPLEX Qty: 180 1RF Dose Instruction: TAKE 1 TABLET BY MOUTH TWICE DAILY WITH MEALS Rx Instructions: TAKE 1 TABLET BY MOUTH TWICE DAILY WITH MEALS rosuvastatin 10 mg tablet 10 mg PO DAILY Qty: 90 1RF icosapent ethyl [Vascepa] 1 gram capsule 2 g PO BID Qty: 360 1RF Follow-up/Referrals: Jose M Jim DO [Primary Care Provider] - Time of Disposition: 11:42
== END 2024-10-20 11:45 | disposition home or self-care (01) ==
PROVIDERS: Emergency Provider Nurse Practitioner Family; PCP Internal Medicine
DX: L02.416 Cutaneous abscess of left lower limb (principal); E11.319 Type 2 diabetes mellitus with unspecified diabetic retinopathy without macular edema; Z79.84 Long term (current) use of oral hypoglycemic drugs; I10 Essential (primary) hypertension; E78.00 Pure hypercholesterolemia, unspecified; K21.9 Gastro-esophageal reflux disease without esophagitis; M48.00 Spinal stenosis, site unspecified; M10.9 Gout, unspecified; I25.2 Old myocardial infarction; I25.10 Atherosclerotic heart disease of native coronary artery without angina pectoris; Z95.5 Presence of coronary angioplasty implant and graft; Z90.89 Acquired absence of other organs
CPT/HCPCS: 99213; G0463